=== PATIENT | male | born 1930 | race Caucasian/White ===

== ENCOUNTER 2020-12-26 14:17 | Inpatient (IN) | payer MEDICARE, BC ==
[~2020-12-26] VITALS: Ht 182.9 cm; Wt 85.3 kg
[~2020-12-26 14:17] MED LIST: ASPI-482 PO; ATOR10TA PO; CLOP75TA57 PO; GLIM1TAB7 PO; MECL12.582 PO; METF500T16 PO; METO25TA2 PO; NITR0.4T24 SL; SIMV10TA PO
[2020-12-26 15:07] LABS: BASO # 0.1 x10^3/uL (0.0-0.2); BASO % 1 % (0-3); EOS % 1 % (0-3); HEMATOCRIT 37.4 % (39.0-53.0); HEMOGLOBIN 12.8 g/dL (13.0-17.5); LYMPH # 0.8 x10^3/uL (1.0-4.8); LYMPH % 14 % (24-48); MEAN CORPUSCULAR HEMOGLOBIN 30 pg (25-35); MEAN CORPUSCULAR HGB CONC 34 g/dL (31-37); MEAN CORPUSCULAR VOLUME 88 fL (79-100); MONO # 0.4 x10^3/uL (0.0-1.1); MONO % 7 % (0-9); NEUT # 4.7 x10^3/uL (1.8-7.7); NEUT % 78 % (31-73); PLATELET COUNT 195 x10^3/uL (140-400); RED BLOOD COUNT 4.24 x10^6/uL (4.30-5.70); RED CELL DISTRIBUTION WIDTH 14.6 % (11.5-14.5); WHITE BLOOD COUNT 6.1 x10^3/uL (4.0-11.0)
--- NOTE | 2020-12-26 15:14 | PHYS DOC ---
General Adult EDM: Chief Complaint: MULTIPLE COMPLAINTS HPI: HPI: Patient is a 89 year old male who presents with 2 weeks of cough, shortness of breath especially with exertion, coughing up yellow mucus, generalized weakness. Patient denies any pain at this time. Patient denies fever, nausea, vomiting, diarrhea, abdominal pain, chest pain, dizziness, syncope, headache, vision change, focal weakness, back pain. Patient has a history of irregular heartbeat, [place], stents, former smoker, diabetes, hypertension, high cholesterol. (GEETA NOLASCO APRN) Review of Systems: Review of Systems: Constitutional: Denies fever or chills. [] Eyes: Denies change in visual acuity. [] HENT: Denies nasal congestion or +sore throat. [] Respiratory: + cough or +shortness of breath. [] Cardiovascular: Denies chest pain or edema. [] GI: Denies abdominal pain, nausea, vomiting, bloody stools or diarrhea. [] : Denies dysuria. [] Musculoskeletal: Denies back pain or joint pain. + Generalized weakness [] Integument: Denies rash. [] Neurologic: Denies headache, focal weakness or sensory changes. [] Endocrine: Denies polyuria or polydipsia. [] Lymphatic: Denies swollen glands. [] Psychiatric: Denies depression or anxiety. [] (GEETA NOLASCO UNINDENTURED APPRENTICE) Heart Score: C/O Chest Pain: No Risk Factors: Risk Factors: DM, Current or recent (<one month) smoker, HTN, HLP, family history of CAD, obesity. Risk Scores: Score 0 - 3: 2.5% MACE over next 6 weeks - Discharge Home Score 4 - 6: 20.3% MACE over next 6 weeks - Admit for Clinical Observation Score 7 - 10: 72.7% MACE over next 6 weeks - Early Invasive Strategies (GEETA NOLASCO APRN) Allergies: Allergies: Allergies Coded Allergies Type Severity Reaction Last Updated Verified Tetracyclines Allergy Intermediate 11/30/14 Yes (GEETA NOLASCO APRN) Physical Exam: PE: Constitutional: Well developed, well nourished, no acute distress, non-toxic appearance. [] HENT: Normocephalic, atraumatic, bilateral external ears normal, oropharynx moist, no oral exudates, nose normal. [] Eyes: PERRLA, EOMI, conjunctiva normal, no discharge. [] Neck: Normal range of motion, no tenderness, supple, no stridor. [] Cardiovascular:Heart rate tachy regular rhythm, no murmur [] Lungs & Thorax: Bilateral breath sounds diminished to auscultation [] Abdomen: Bowel sounds normal, soft, no tenderness, no masses, no pulsatile masses. [] Skin: Warm, dry, no erythema, no rash. [] Back: No tenderness, no CVA tenderness. [] Extremities: No tenderness, no cyanosis, no clubbing, ROM intact, no edema. [] Neurologic: Alert and oriented X 3, normal motor function, normal sensory function, no focal deficits noted. [] Psychologic: Affect normal, judgement normal, mood normal. [] (GEETA NOLASCO APRN) Current Patient Data: Labs: Laboratory Tests Test 12/26/20 14:58 White Blood Count 6.1 x10^3/uL (4.0-11.0) Red Blood Count 4.24 x10^6/uL (4.30-5.70) L Hemoglobin 12.8 g/dL (13.0-17.5) L Hematocrit 37.4 % (39.0-53.0) L Mean Corpuscular Volume 88 fL (79-100) Mean Corpuscular Hemoglobin 30 pg (25-35) Mean Corpuscular Hemoglobin Concent 34 g/dL (31-37) Red Cell Distribution Width 14.6 % (11.5-14.5) H Platelet Count 195 x10^3/uL (140-400) Neutrophils (%) (Auto) 78 % (31-73) H Lymphocytes (%) (Auto) 14 % (24-48) L Monocytes (%) (Auto) 7 % (0-9) Eosinophils (%) (Auto) 1 % (0-3) Basophils (%) (Auto) 1 % (0-3) Neutrophils # (Auto) 4.7 x10^3/uL (1.8-7.7) Lymphocytes # (Auto) 0.8 x10^3/uL (1.0-4.8) L Monocytes # (Auto) 0.4 x10^3/uL (0.0-1.1) Eosinophils # (Auto) 0.0 x10^3/uL (0.0-0.7) Basophils # (Auto) 0.1 x10^3/uL (0.0-0.2) Laboratory Tests 12/26/20 14:58 (GEETA NOLASCO APRN) EKG: EK and read by Dr. Trammell as sinus tachycardia no STEMI (GEETA NOLASCO APRN) Radiology/Procedures: Radiology/Procedures: [] Impression: [facility] [address] [place] [address] IMAGING REPORT Signed PATIENT: CURTIS ALCAZAR ACCOUNT: [id number] : 1930 LOCATION: ER AGE: 89 SEX: M EXAM STATUS: REG ER ORD. PHYSICIAN: GEETA NOLASCO APRN REASON: CHEST PAIN PROCEDURE: PORTABLE CHEST 1V XR CHEST 1V 12/26/2020 3:00 PM INDICATION: Chest pain COMPARISON: None available TECHNIQUE: Portable frontal view of the chest is provided. FINDINGS: The cardiomediastinal silhouette is within normal limits. Lungs are clear. There are no significant pleural effusions. There is no pulmonary vascular congestion. No pneumothorax. No suspicious osseous abnormality. IMPRESSION: There is no acute cardiopulmonary process. Electronically signed by: Bassam Morales MD (12/26/2020 3:13 PM) [id number] DICTATED and SIGNED BY: BASSAM MORALES MD DATE: 12/26/20 [id number] (GEETA NOLASCO APRN) Course & Med Decision Making: Course & Med Decision Making Pertinent Labs and Imaging studies reviewed. (See chart for details) See HPI. Alert and oriented x4. Ambulatory with a steady gait. Speaks in full clear sentences. Skin pink warm and dry. Lungs are diminished. No respiratory distress. Blood work shows acute kidney injury. Patient states he has no history of this. Chest x-ray shows no acute findings. He states that the breathing treatment did help. Patient admitted to hospitalist. Walking saturation is 94%. [] (GEETA NOLASCO APRN) Dragon Disclaimer: Dragon Disclaimer: This electronic medical record was generated, in whole or in part, using a voice recognition dictation system. (GEETA NOLASCO APRN) Departure Departure Impression: Primary Impression: Acute kidney injury Additional Impression: Shortness of breath Disposition: ADMITTED INPATIENT Admitting Physician: LEROY (GEETA NOLASCO APRN) Condition: STABLE Referrals: Tyree AGUIAR MD (PCP) Attending Signature I have participated in the care of this patient and I have reviewed and agree with all pertinent clinical information above including history, exam, and recommendations. (ZOFIA TRAMMELL DO) GEETA NOLASCO APRN Dec 26, 2020 15:14 ZOFIA TRAMMELL DO Dec 26, 2020 17:19
[2020-12-26] MEDS ORDERED: ALBUTEROL SULFATE 2.5 MG/3 ML NEBU. NEB ONE (15:15)
[2020-12-26] MEDS ORDERED: methylPREDNISolone SOD SUCC PF 125 MG/2 ML VIAL. IV ONE (15:15)
[2020-12-26 15:21] LABS: CALCIUM 9.5 mg/dL (8.5-10.1); CREATININE 1.8 mg/dL (0.7-1.3); GFR 35.8; POTASSIUM 3.7 mmol/L (3.5-5.1)
[2020-12-26 15:27] LABS: ALBUMIN/GLOBULIN RATIO 1.2 (1.0-1.7); TOTAL BILIRUBIN 1.6 mg/dL (0.2-1.0); TOTAL PROTEIN 7.4 g/dL (6.4-8.2)
[2020-12-26 15:51] LABS: BASE EXCESS COOX -2 mmol/L (-3-3); HCO3 COOX 23 mmol/L (21-28); METHEMOGLOBIN 0.4 % (0.0-1.9); OXYHEMOGLOBIN 92.7 %; PCO2 COOX 37 mmHg (35-46); PO2 COOX 67 mmHg (65-108); SAT O2 COOX 93 % (92-99)
[2020-12-26] MEDS ORDERED: IV NORMAL SALINE 1000ML BAG 1,000 ML IV ONE ×2 (16:00→20:30)
--- NOTE | 2020-12-26 17:26 | EKG ---
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
[2020-12-26 17:35] LABS: BILIRUBIN,URINE SMALL (NEG); CLARITY,URINE CLEAR; COLOR,URINE AMBER; NITRITE,URINE NEGATIVE (NEG); PH,URINE 5.5 (<5.0-8.0); PROTEIN,URINE 100 mg/dL (NEG-TRACE)
[2020-12-26 17:45] LABS: BACTERIA,URINE 0 /HPF (0-FEW); HYALINE CASTS, URINE FEW /HPF; RBC,URINE 0 /HPF (0-2); WBC,URINE OCC /HPF (0-4)
[2020-12-26 19:00] VITALS: BP 153/64
--- NOTE | 2020-12-26 19:12 | PDOC1 ---
History and Physical Date of Service: DOS: DATE: 12/26/20 TIME: 18:54 Chief Complaint: Chief Complain: Cough and shortness of breath History of Present Illness: HPI: Patient is an 89-year-old male with past medical history of CAD with multiple stents, diabetes mellitus, dyslipidemia who comes in with complaints of shortness of breath and productive cough with yellow mucus and generalized weakness in the past 2 weeks. Since Thursday is when he was worsening and was severely fatigued. Patient did not drink any fluids on the day of his admission. Patient has also been coughing so much that he has been having chest pains as well. Denies any associated nausea vomiting, fever, abdominal pain, diarrhea, dizziness, syncope, headache or bloody stools. Patient has a history of irregular heartbeat, [place], stents, former smoker, diabetes, hypertension, high cholesterol. Past Medical/Surgical History: PMH/PSH: CAD x7 stents, diabetes mellitus type 2 diagnosed 7 years ago, dyslipidemia Allergies: Allergies: Coded Allergies: Tetracyclines (Verified Allergy, Intermediate, 11/30/14) Family History: Family History: Reviewed with no relevant findings Social History: Social History: Former smoker quit 45 years ago. Currently denies any alcohol or drug abuse Current Medications: Current Medications Current Medications Methylprednisolone Sodium Succinate (SOLU-Medrol 125MG VIAL) 125 mg 1X ONCE IV Last administered on 12/26/20at 15:28; Start 12/26/20 at 15:15; Stop 12/26/20 at 15:16; Status DC Albuterol Sulfate (Ventolin Neb Soln) 2.5 mg 1X ONCE NEB Last administered on 12/26/20at 15:44; Start 12/26/20 at 15:15; Stop 12/26/20 at 15:16; Status DC Sodium Chloride 1,000 ml @ 1,000 mls/hr 1X ONCE IV Last administered on 12/26/20at 16:24; Start 12/26/20 at 16:00; Stop 12/26/20 at 16:59; Status DC Active Scripts Active Reported Meclizine Hcl 12.5 Mg Tablet 1 Tab PO TID Aspir 81 (Aspirin) 81 Mg Tablet.dr 1 Tab PO DAILY Glimepiride 1 Mg Tablet 1 Tab PO DAILY Metformin Hcl 500 Mg Tablet 1 Tab PO BID Nitrostat (Nitroglycerin) 0.4 Mg Tab.subl 1 Tab SL UD Zocor (Simvastatin) 10 Mg Tablet 1 Tab PO QHS Lipitor (Atorvastatin Calcium) 10 Mg Tablet 1 Tab PO QHS Plavix (Clopidogrel Bisulfate) 75 Mg Tablet 1 Tab PO DAILY Toprol Xl (Metoprolol Succinate) 25 Mg Tab.er.24h 1 Tab PO DAILY ROS: Review of Systems Review of System REVIEW OF SYSTEMS: GENERAL: Denies weakness SKIN: No bruising, hair changes or rashes. EYES: No blurred, double or loss of vision. NOSE AND THROAT: No history of nosebleeds, hoarseness or sore throat. HEART: No history of palpitations, chest pain or shortness of breath on exertion. LUNGS: Denies cough, hemoptysis, wheezing or shortness of breath. GASTROINTESTINAL: Denies changes in appetite, nausea, vomiting, diarrhea or constipation. GENITOURINARY: No history of frequency, urgency, hesitancy or nocturia. NEUROLOGIC: Denies history of numbness, tingling, or tremor. PSYCHIATRIC: No history of panic, anxiety or depression. ENDOCRINE: No history of heat or cold intolerance, polyuria or polydipsia. EXTREMITIES: Denies joint pain, pain on walking or stiffness. Physical Exam: Vital Signs: Vital Signs Date Time Temp Pulse Resp B/P (MAP) Pulse Ox O2 Delivery O2 Flow Rate FiO2 12/26/20 18:00 82 129/78 (95) 95 Room Air 12/26/20 14:37 97.8 24 97.8 Physcial Exam: GEN: No apparent distress. Alert and oriented HEENT: Normal cephalic, atraumatic, external auditory canals are patent EYES: Extraocular muscles are intact, pupil are equally round and reactive to light and accommodation MUSCULOSKELETAL: Well developed , well nourished, good range of motion ENDOCRINE: No thyromegaly was palpated LYMPHATICS: No cervical chain or axillary nodes were noted HEMATOPOIETIC: No bruising NECK: Supple, no JVD, no thyromegaly was noted LUNGS: Clear to auscultation in all lung card without rhonchi or wheezing HEART: RRR, S!, S2 present. Peripheral pulses intact, no obvious murmurs noted ABDOMEN: Soft, nontender. Positive bowel sounds, no organomegaly, normal bowel sounds EXTREMITIES: Without clubbing, cyanosis, or edema. Pedal pulses intact. Negative Homans sign NEUROLOGIC: Normal speech and tone. A&O x 3, moves all extremities, no obvious focal deficits PSYCHIATRIC: Normal affect, normal mood. Stable SKIN: No ulcerations or rashes, good skin turgor, no jaundice VASCULAR: Good capillary refill, neurovascular bundle appears to be intact Labs: Labs: Laboratory Tests Test 12/26/20 14:58 12/26/20 15:35 12/26/20 17:20 White Blood Count 6.1 x10^3/uL (4.0-11.0) Red Blood Count 4.24 x10^6/uL (4.30-5.70) Hemoglobin 12.8 g/dL (13.0-17.5) Hematocrit 37.4 % (39.0-53.0) Mean Corpuscular Volume 88 fL (79-100) Mean Corpuscular Hemoglobin 30 pg (25-35) Mean Corpuscular Hemoglobin Concent 34 g/dL (31-37) Red Cell Distribution Width 14.6 % (11.5-14.5) Platelet Count 195 x10^3/uL (140-400) Neutrophils (%) (Auto) 78 % (31-73) Lymphocytes (%) (Auto) 14 % (24-48) Monocytes (%) (Auto) 7 % (0-9) Eosinophils (%) (Auto) 1 % (0-3) Basophils (%) (Auto) 1 % (0-3) Neutrophils # (Auto) 4.7 x10^3/uL (1.8-7.7) Lymphocytes # (Auto) 0.8 x10^3/uL (1.0-4.8) Monocytes # (Auto) 0.4 x10^3/uL (0.0-1.1) Eosinophils # (Auto) 0.0 x10^3/uL (0.0-0.7) Basophils # (Auto) 0.1 x10^3/uL (0.0-0.2) Sodium Level 140 mmol/L (136-145) Potassium Level 3.7 mmol/L (3.5-5.1) Chloride Level 104 mmol/L (98-107) Carbon Dioxide Level 23 mmol/L (21-32) Anion Gap 13 (6-14) Blood Urea Nitrogen 28 mg/dL (8-26) Creatinine 1.8 mg/dL (0.7-1.3) Estimated GFR (Cockcroft-Gault) 35.8 BUN/Creatinine Ratio 16 (6-20) Glucose Level 200 mg/dL (70-99) Lactic Acid Level 2.7 mmol/L (0.4-2.0) Calcium Level 9.5 mg/dL (8.5-10.1) Total Bilirubin 1.6 mg/dL (0.2-1.0) Aspartate Amino Transf (AST/SGOT) 21 U/L (15-37) Alanine Aminotransferase (ALT/SGPT) 27 U/L (16-63) Alkaline Phosphatase 98 U/L (46-116) Troponin I Quantitative < 0.017 ng/mL (0.000-0.055) XR-Agj-U-Type Natriuretic Peptide 260 pg/mL (0-449) Total Protein 7.4 g/dL (6.4-8.2) Albumin 4.0 g/dL (3.4-5.0) Albumin/Globulin Ratio 1.2 (1.0-1.7) Lipase 153 U/L (73-393) O2 Saturation 93 % (92-99) Arterial Blood pH 7.41 (7.35-7.45) Arterial Blood pCO2 at Patient Temp 37 mmHg (35-46) Arterial Blood pO2 at Patient Temp 67 mmHg (65-108) Arterial Blood HCO3 23 mmol/L (21-28) Arterial Blood Base Excess -2 mmol/L (-3-3) Oxyhemoglobin 92.7 % Methemoglobin 0.4 % (0.0-1.9) Carbon Monoxide, Quantitative 0.3 % (0.0-1.9) FiO2 21 Urine Collection Type Unknown Urine Color Kelly Urine Clarity Clear Urine pH 5.5 (<5.0-8.0) Urine Specific [place] >=1.030 (1.000-1.030) Urine Protein 100 mg/dL (NEG-TRACE) Urine Glucose (UA) 100 mg/dL (NEG) Urine Ketones (Stick) 40 mg/dL (NEG) Urine Blood Negative (NEG) Urine Nitrite Negative (NEG) Urine Bilirubin Small (NEG) Urine Urobilinogen Dipstick 1.0 mg/dL (0.2 mg/dL) Urine Leukocyte Esterase Negative (NEG) Urine RBC 0 /HPF (0-2) Urine WBC Occ /HPF (0-4) Urine Squamous Epithelial Cells Few /LPF Urine Bacteria 0 /HPF (0-FEW) Urine Hyaline Casts Few /HPF Urine Mucus Marked /LPF Laboratory Tests Test 12/26/20 14:58 12/26/20 15:35 12/26/20 17:20 White Blood Count 6.1 x10^3/uL (4.0-11.0) Red Blood Count 4.24 x10^6/uL (4.30-5.70) Hemoglobin 12.8 g/dL (13.0-17.5) Hematocrit 37.4 % (39.0-53.0) Mean Corpuscular Volume 88 fL (79-100) Mean Corpuscular Hemoglobin 30 pg (25-35) Mean Corpuscular Hemoglobin Concent 34 g/dL (31-37) Red Cell Distribution Width 14.6 % (11.5-14.5) Platelet Count 195 x10^3/uL (140-400) Neutrophils (%) (Auto) 78 % (31-73) Lymphocytes (%) (Auto) 14 % (24-48) Monocytes (%) (Auto) 7 % (0-9) Eosinophils (%) (Auto) 1 % (0-3) Basophils (%) (Auto) 1 % (0-3) Neutrophils # (Auto) 4.7 x10^3/uL (1.8-7.7) Lymphocytes # (Auto) 0.8 x10^3/uL (1.0-4.8) Monocytes # (Auto) 0.4 x10^3/uL (0.0-1.1) Eosinophils # (Auto) 0.0 x10^3/uL (0.0-0.7) Basophils # (Auto) 0.1 x10^3/uL (0.0-0.2) Sodium Level 140 mmol/L (136-145) Potassium Level 3.7 mmol/L (3.5-5.1) Chloride Level 104 mmol/L (98-107) Carbon Dioxide Level 23 mmol/L (21-32) Anion Gap 13 (6-14) Blood Urea Nitrogen 28 mg/dL (8-26) Creatinine 1.8 mg/dL (0.7-1.3) Estimated GFR (Cockcroft-Gault) 35.8 BUN/Creatinine Ratio 16 (6-20) Glucose Level 200 mg/dL (70-99) Lactic Acid Level 2.7 mmol/L (0.4-2.0) Calcium Level 9.5 mg/dL (8.5-10.1) Total Bilirubin 1.6 mg/dL (0.2-1.0) Aspartate Amino Transf (AST/SGOT) 21 U/L (15-37) Alanine Aminotransferase (ALT/SGPT) 27 U/L (16-63) Alkaline Phosphatase 98 U/L (46-116) Troponin I Quantitative < 0.017 ng/mL (0.000-0.055) QH-Tyl-M-Type Natriuretic Peptide 260 pg/mL (0-449) Total Protein 7.4 g/dL (6.4-8.2) Albumin 4.0 g/dL (3.4-5.0) Albumin/Globulin Ratio 1.2 (1.0-1.7) Lipase 153 U/L (73-393) O2 Saturation 93 % (92-99) Arterial Blood pH 7.41 (7.35-7.45) Arterial Blood pCO2 at Patient Temp 37 mmHg (35-46) Arterial Blood pO2 at Patient Temp 67 mmHg (65-108) Arterial Blood HCO3 23 mmol/L (21-28) Arterial Blood Base Excess -2 mmol/L (-3-3) Oxyhemoglobin 92.7 % Methemoglobin 0.4 % (0.0-1.9) Carbon Monoxide, Quantitative 0.3 % (0.0-1.9) FiO2 21 Urine Collection Type Unknown Urine Color Kelly Urine Clarity Clear Urine pH 5.5 (<5.0-8.0) Urine Specific [place] >=1.030 (1.000-1.030) Urine Protein 100 mg/dL (NEG-TRACE) Urine Glucose (UA) 100 mg/dL (NEG) Urine Ketones (Stick) 40 mg/dL (NEG) Urine Blood Negative (NEG) Urine Nitrite Negative (NEG) Urine Bilirubin Small (NEG) Urine Urobilinogen Dipstick 1.0 mg/dL (0.2 mg/dL) Urine Leukocyte Esterase Negative (NEG) Urine RBC 0 /HPF (0-2) Urine WBC Occ /HPF (0-4) Urine Squamous Epithelial Cells Few /LPF Urine Bacteria 0 /HPF (0-FEW) Urine Hyaline Casts Few /HPF Urine Mucus Marked /LPF Images: Images PROCEDURE: PORTABLE CHEST 1V IMPRESSION: There is no acute cardiopulmonary process. Assessment/Plan Assessment/Plan Acute respiratory distress Atypical pneumonia, possible viral etiology ESTEFANY due to vasomotor nephropathy Lactic acidemia History of CAD with multiple stents History of hypertension History of dyslipidemia History of diabetes mellitus type 2 Admit to medicine for further management Nephrology consult for ESTEFANY Continue IV fluids Trend creatinine R ISS and Accu-Cheks Consider cardiology consult if patient has reoccurring chest pain Supportive care for cough Ambulation SCD for DVT prophylaxis Protonix GI prophylaxis ADA diet Full code Discussed with RN and SW Disposition inpatient management as above Surrogate decision maker is Amaury Denton Justifications for Admission Other Justification VIGNESH LAST MD Dec 26, 2020 19:12
[2020-12-26] MEDS ORDERED: ACETAMINOPHEN 325 MG TABLET. PO PRN (19:15)
[2020-12-26] MEDS ORDERED: MORPHINE SULFATE 2 MG/ML VIAL. IVP PRN (19:15)
[2020-12-26] MEDS ORDERED: DOCUSATE SODIUM 100 MG CAPSULE. PO PRN (19:15)
[2020-12-26] MEDS ORDERED: ONDANSETRON PF 4 MG/2 ML VIAL. IVP PRN (19:15)
[2020-12-26] MEDS ORDERED: DEXTROSE 50% 25 GM / 50ML DISP.SYRIN. IV PRN ×2 (19:15)
[2020-12-26] MEDS ORDERED: MORPHINE SULFATE 2 MG/ML VIAL. IV PRN (19:15)
[2020-12-26] MEDS: ATORVASTATIN CALCIUM 10 MG TABLET. PO SCH (21:11)
[2020-12-26] MEDS: MECLIZINE HCL 12.5 MG TABLET. PO SCH (21:12)
[2020-12-26 23:16] VITALS: BP 125/63
[2020-12-26] MEDS: IV NORMAL SALINE 1000ML BAG 1,000 ML IV SCH (23:31)
[2020-12-27 03:14] VITALS: BP 125/65
[2020-12-27] MEDS: IV NORMAL SALINE 1000ML BAG 1,000 ML IV SCH ×2 (05:15→16:02)
[2020-12-27 06:28] LABS: BASO % 0 % (0-3); EOS % 0 % (0-3); HEMATOCRIT 32.1 % (39.0-53.0); HEMOGLOBIN 11.1 g/dL (13.0-17.5); LYMPH # 0.5 x10^3/uL (1.0-4.8); LYMPH % 15 % (24-48); MEAN CORPUSCULAR HEMOGLOBIN 30 pg (25-35); MEAN CORPUSCULAR HGB CONC 34 g/dL (31-37); MEAN CORPUSCULAR VOLUME 88 fL (79-100); MONO # 0.1 x10^3/uL (0.0-1.1); MONO % 4 % (0-9); NEUT # 2.7 x10^3/uL (1.8-7.7); NEUT % 81 % (31-73); PLATELET COUNT 167 x10^3/uL (140-400); RED BLOOD COUNT 3.64 x10^6/uL (4.30-5.70); RED CELL DISTRIBUTION WIDTH 14.2 % (11.5-14.5); WHITE BLOOD COUNT 3.4 x10^3/uL (4.0-11.0)
[2020-12-27 06:37] LABS: CALCIUM 8.5 mg/dL (8.5-10.1); CREATININE 1.3 mg/dL (0.7-1.3); GFR 52.1; MAGNESIUM 2.2 mg/dL (1.8-2.4); PHOSPHORUS 2.7 mg/dL (2.6-4.7); POTASSIUM 4.6 mmol/L (3.5-5.1)
[2020-12-27 07:30] VITALS: BP 141/76
[2020-12-27] MEDS: MECLIZINE HCL 12.5 MG TABLET. PO SCH ×3 (07:49→20:47)
[2020-12-27] MEDS: CLOPIDOGREL BISULFATE 75 MG TABLET PO SCH (07:49)
[2020-12-27] MEDS: METOPROLOL SUCC 24HR ER 25 MG TAB.ER.24H. PO SCH (07:50)
[2020-12-27] MEDS: ASPIRIN ENTERIC COATED 81 MG TABLET.DR. PO SCH (07:50)
[2020-12-27] MEDS: INSULIN LISPRO 300 UNITS/3 ML VIAL. SQ SCH ×3 (07:55→16:59)
--- NOTE | 2020-12-27 09:08 | PDOC2 ---
CONSULT Date of Consult Date of Consult DATE: 12/27/20 TIME: 09:03 Reason for Consult Reason for Consult: ESTEFANY Source Source: Chart review, Patient History of Present Illness Reason for Visit: Patient is an 89-year-old CM with past medical history of CAD with multiple stents, diabetes mellitus, who comes in with complaints of shortness of breath and productive cough with yellow mucus and generalized weakness in the past 2 weeks. Since Thursday is when he was worsening and was severely fatigued. Patient did not drink any fluids on the day of his admission but reports he stays adequately hydrated - drinks water and other fluid s. He denies being aware of Dx of CKD . He states he has bee feeling feeling of incomplete emptying of bladder for past many months , no previous dx of BPH. Denies UTI's, currently no urinary symptoms . States doesnt have Kidney stones " I had a stone in the penis approx 30 yrs ago, which i passed" Denies NSAID use , No N/V/D. nO f/c hE REPORTS coughing so much that he has been having chest pains as well. No dizziness, syncope, headache or bloody stools. Past Medical History Past Medical History CAD x7 stents, diabetes mellitus type 2 diagnosed 7 years ago, dyslipidemia Family History Family History Reviewed with no relevant findings Social History Social History Former smoker quit 45 years ago. Currently denies any alcohol or drug abuse Current Problem List Problem List Problems Medical Problems: (1) Acute kidney injury Status: Acute (2) Shortness of breath Status: Acute Current Medications Current Medications Current Medications Methylprednisolone Sodium Succinate (SOLU-Medrol 125MG VIAL) 125 mg 1X ONCE IV Last administered on 12/26/20at 15:28; Start 12/26/20 at 15:15; Stop 12/26/20 at 15:16; Status DC Albuterol Sulfate (Ventolin Neb Soln) 2.5 mg 1X ONCE NEB Last administered on 12/26/20at 15:44; Start 12/26/20 at 15:15; Stop 12/26/20 at 15:16; Status DC Sodium Chloride 1,000 ml @ 1,000 mls/hr 1X ONCE IV Last administered on 12/26/20at 16:24; Start 12/26/20 at 16:00; Stop 12/26/20 at 16:59; Status DC Insulin Human Lispro (HumaLOG) 0-7 UNITS TIDWMEALS SQ Last administered on 12/27/20at 07:55; Start 12/27/20 at 08:00 Dextrose (Dextrose 50%-Water Syringe) 12.5 gm PRN Q15MIN PRN IV SEE COMMENTS; Start 12/26/20 at 19:15 Sennosides (Senna) 17.2 mg PRN BID PRN PO CONSTIPATION; Start 12/26/20 at 19:15 Docusate Sodium (Colace) 100 mg PRN DAILY PRN PO HARD STOOLS; Start 12/26/20 at 19:15 Ondansetron HCl (Zofran) 4 mg PRN Q6HRS PRN IVP NAUSEA/VOMITING; Start 12/26/20 at 19:15 Dextrose (Dextrose 50%-Water Syringe) 12.5 gm PRN Q15MIN PRN IV SEE COMMENTS; Start 12/26/20 at 19:15 Sodium Chloride 1,000 ml @ 100 mls/hr Q10H IV Last administered on 12/27/20at 05:15; Start 12/26/20 at 19:15 Acetaminophen (Tylenol) 650 mg PRN Q4HRS PRN PO TEMP OVER 100.4F OR MILD PAIN; Start 12/26/20 at 19:15 Morphine Sulfate (Morphine Sulfate) 1 mg PRN Q1HR PRN IV PAIN; Start 12/26/20 at 19:15 Morphine Sulfate (Morphine Sulfate) 2 mg PRN Q2HR PRN IVP SEVERE PAIN 7-10; Start 12/26/20 at 19:15; Stop 12/27/20 at 19:14 Aspirin (Ecotrin) 81 mg DAILY PO Last administered on 12/27/20at 07:50; Start 12/27/20 at 09:00 Atorvastatin Calcium (Lipitor) 10 mg QHS PO Last administered on 12/26/20at 21:11; Start 12/26/20 at 21:00 Clopidogrel Bisulfate (Plavix) 75 mg DAILY PO Last administered on 12/27/20at 07:49; Start 12/27/20 at 09:00 Meclizine HCl (Antivert) 12.5 mg TID PO Last administered on 12/27/20at 07:49; Start 12/26/20 at 21:00 Metoprolol Succinate (Toprol Xl) 25 mg DAILY PO Last administered on 12/27/20at 07:50; Start 12/27/20 at 09:00 Sodium Chloride 1,000 ml @ 125 mls/hr 1X ONCE IV Last administered on 12/26/20at 21:11; Start 12/26/20 at 20:30; Stop 12/27/20 at 04:29; Status DC Active Scripts Active Reported Meclizine Hcl 12.5 Mg Tablet 1 Tab PO TID Aspir 81 (Aspirin) 81 Mg Tablet.dr 1 Tab PO DAILY Glimepiride 1 Mg Tablet 1 Tab PO DAILY Metformin Hcl 500 Mg Tablet 1 Tab PO BID Nitrostat (Nitroglycerin) 0.4 Mg Tab.subl 1 Tab SL UD Zocor (Simvastatin) 10 Mg Tablet 1 Tab PO QHS Lipitor (Atorvastatin Calcium) 10 Mg Tablet 1 Tab PO QHS Plavix (Clopidogrel Bisulfate) 75 Mg Tablet 1 Tab PO DAILY Toprol Xl (Metoprolol Succinate) 25 Mg Tab.er.24h 1 Tab PO DAILY Allergies Allergies: Coded Allergies: Tetracyclines (Verified Allergy, Intermediate, 11/30/14) ROS Review of System As per HPI, rest of the ROS is negative Physical Exam Physical Exam GEN: No apparent distress. HEENT: Normal cephalic, atraumatic, OM moist NECK: Supple, no JVD, LUNGS: Clear to auscultation, Non labored HEART: RRR, S!, S2 present ABDOMEN: Soft, nontender. Positive bowel sounds, no organomegaly EXTREMITIES: Without clubbing, cyanosis, or edema. NEUROLOGIC: Grossly no obvious focal deficits PSYCHIATRIC: Normal affect, normal mood. Stable SKIN: No ulcerations or rashes, good skin turgor, no jaundice No CVA or SP tenderness, No Rodriguez Vital Signs Vital Signs Date Time Temp Pulse Resp B/P (MAP) Pulse Ox O2 Delivery O2 Flow Rate FiO2 12/27/20 07:50 84 125/65 12/27/20 07:30 97.9 18 98 Room Air 97.9 Assessment & Plan ESTEFANY - Vasomotor , Improving with IVF, uop not recorded,, Supportive care, maintain hydration, avoid nephrotoxins, I/O Acute respiratory distress- per primary Atypical pneumonia, possible viral etiology Mildly Low WBC and Hgb -monitor, defer to primary Hx of CAD with multiple stents Hypertension- antihypertensives Diabetes mellitus type 2 Labs Labs Laboratory Tests Test 12/26/20 14:58 12/26/20 15:35 12/26/20 17:20 12/26/20 18:58 White Blood Count 6.1 x10^3/uL (4.0-11.0) Red Blood Count 4.24 x10^6/uL (4.30-5.70) Hemoglobin 12.8 g/dL (13.0-17.5) Hematocrit 37.4 % (39.0-53.0) Mean Corpuscular Volume 88 fL (79-100) Mean Corpuscular Hemoglobin 30 pg (25-35) Mean Corpuscular Hemoglobin Concent 34 g/dL (31-37) Red Cell Distribution Width 14.6 % (11.5-14.5) Platelet Count 195 x10^3/uL (140-400) Neutrophils (%) (Auto) 78 % (31-73) Lymphocytes (%) (Auto) 14 % (24-48) Monocytes (%) (Auto) 7 % (0-9) Eosinophils (%) (Auto) 1 % (0-3) Basophils (%) (Auto) 1 % (0-3) Neutrophils # (Auto) 4.7 x10^3/uL (1.8-7.7) Lymphocytes # (Auto) 0.8 x10^3/uL (1.0-4.8) Monocytes # (Auto) 0.4 x10^3/uL (0.0-1.1) Eosinophils # (Auto) 0.0 x10^3/uL (0.0-0.7) Basophils # (Auto) 0.1 x10^3/uL (0.0-0.2) Sodium Level 140 mmol/L (136-145) Potassium Level 3.7 mmol/L (3.5-5.1) Chloride Level 104 mmol/L (98-107) Carbon Dioxide Level 23 mmol/L (21-32) Anion Gap 13 (6-14) Blood Urea Nitrogen 28 mg/dL (8-26) Creatinine 1.8 mg/dL (0.7-1.3) Estimated GFR (Cockcroft-Gault) 35.8 BUN/Creatinine Ratio 16 (6-20) Glucose Level 200 mg/dL (70-99) Lactic Acid Level 2.7 mmol/L (0.4-2.0) 4.1 mmol/L (0.4-2.0) Calcium Level 9.5 mg/dL (8.5-10.1) Total Bilirubin 1.6 mg/dL (0.2-1.0) Aspartate Amino Transf (AST/SGOT) 21 U/L (15-37) Alanine Aminotransferase (ALT/SGPT) 27 U/L (16-63) Alkaline Phosphatase 98 U/L (46-116) Troponin I Quantitative < 0.017 ng/mL (0.000-0.055) < 0.017 ng/mL (0.000-0.055) YF-Esm-N-Type Natriuretic Peptide 260 pg/mL (0-449) Total Protein 7.4 g/dL (6.4-8.2) Albumin 4.0 g/dL (3.4-5.0) Albumin/Globulin Ratio 1.2 (1.0-1.7) Lipase 153 U/L (73-393) O2 Saturation 93 % (92-99) Arterial Blood pH 7.41 (7.35-7.45) Arterial Blood pCO2 at Patient Temp 37 mmHg (35-46) Arterial Blood pO2 at Patient Temp 67 mmHg (65-108) Arterial Blood HCO3 23 mmol/L (21-28) Arterial Blood Base Excess -2 mmol/L (-3-3) Oxyhemoglobin 92.7 % Methemoglobin 0.4 % (0.0-1.9) Carbon Monoxide, Quantitative 0.3 % (0.0-1.9) FiO2 21 Urine Collection Type Unknown Urine Color Kelly Urine Clarity Clear Urine pH 5.5 (<5.0-8.0) Urine Specific [place] >=1.030 (1.000-1.030) Urine Protein 100 mg/dL (NEG-TRACE) Urine Glucose (UA) 100 mg/dL (NEG) Urine Ketones (Stick) 40 mg/dL (NEG) Urine Blood Negative (NEG) Urine Nitrite Negative (NEG) Urine Bilirubin Small (NEG) Urine Urobilinogen Dipstick 1.0 mg/dL (0.2 mg/dL) Urine Leukocyte Esterase Negative (NEG) Urine RBC 0 /HPF (0-2) Urine WBC Occ /HPF (0-4) Urine Squamous Epithelial Cells Few /LPF Urine Bacteria 0 /HPF (0-FEW) Urine Hyaline Casts Few /HPF Urine Mucus Marked /LPF Test 6/2/21 19:37 12/26/20 20:05 12/27/20 01:00 12/27/20 05:40 Glucose (Fingerstick) 310 mg/dL (70-99) Troponin I Quantitative < 0.017 ng/mL (0.000-0.055) Lactic Acid Level 1.4 mmol/L (0.4-2.0) White Blood Count 3.4 x10^3/uL (4.0-11.0) Red Blood Count 3.64 x10^6/uL (4.30-5.70) Hemoglobin 11.1 g/dL (13.0-17.5) Hematocrit 32.1 % (39.0-53.0) Mean Corpuscular Volume 88 fL (79-100) Mean Corpuscular Hemoglobin 30 pg (25-35) Mean Corpuscular Hemoglobin Concent 34 g/dL (31-37) Red Cell Distribution Width 14.2 % (11.5-14.5) Platelet Count 167 x10^3/uL (140-400) Neutrophils (%) (Auto) 81 % (31-73) Lymphocytes (%) (Auto) 15 % (24-48) Monocytes (%) (Auto) 4 % (0-9) Eosinophils (%) (Auto) 0 % (0-3) Basophils (%) (Auto) 0 % (0-3) Neutrophils # (Auto) 2.7 x10^3/uL (1.8-7.7) Lymphocytes # (Auto) 0.5 x10^3/uL (1.0-4.8) Monocytes # (Auto) 0.1 x10^3/uL (0.0-1.1) Eosinophils # (Auto) 0.0 x10^3/uL (0.0-0.7) Basophils # (Auto) 0.0 x10^3/uL (0.0-0.2) Sodium Level 140 mmol/L (136-145) Potassium Level 4.6 mmol/L (3.5-5.1) Chloride Level 109 mmol/L (98-107) Carbon Dioxide Level 21 mmol/L (21-32) Anion Gap 10 (6-14) Blood Urea Nitrogen 22 mg/dL (8-26) Creatinine 1.3 mg/dL (0.7-1.3) Estimated GFR (Cockcroft-Gault) 52.1 Glucose Level 241 mg/dL (70-99) Calcium Level 8.5 mg/dL (8.5-10.1) Phosphorus Level 2.7 mg/dL (2.6-4.7) Magnesium Level 2.2 mg/dL (1.8-2.4) Test 12/27/20 07:17 Glucose (Fingerstick) 208 mg/dL (70-99) Laboratory Tests Test 12/26/20 14:58 12/26/20 15:35 12/26/20 17:20 12/26/20 18:58 White Blood Count 6.1 x10^3/uL (4.0-11.0) Red Blood Count 4.24 x10^6/uL (4.30-5.70) Hemoglobin 12.8 g/dL (13.0-17.5) Hematocrit 37.4 % (39.0-53.0) Mean Corpuscular Volume 88 fL (79-100) Mean Corpuscular Hemoglobin 30 pg (25-35) Mean Corpuscular Hemoglobin Concent 34 g/dL (31-37) Red Cell Distribution Width 14.6 % (11.5-14.5) Platelet Count 195 x10^3/uL (140-400) Neutrophils (%) (Auto) 78 % (31-73) Lymphocytes (%) (Auto) 14 % (24-48) Monocytes (%) (Auto) 7 % (0-9) Eosinophils (%) (Auto) 1 % (0-3) Basophils (%) (Auto) 1 % (0-3) Neutrophils # (Auto) 4.7 x10^3/uL (1.8-7.7) Lymphocytes # (Auto) 0.8 x10^3/uL (1.0-4.8) Monocytes # (Auto) 0.4 x10^3/uL (0.0-1.1) Eosinophils # (Auto) 0.0 x10^3/uL (0.0-0.7) Basophils # (Auto) 0.1 x10^3/uL (0.0-0.2) Sodium Level 140 mmol/L (136-145) Potassium Level 3.7 mmol/L (3.5-5.1) Chloride Level 104 mmol/L (98-107) Carbon Dioxide Level 23 mmol/L (21-32) Anion Gap 13 (6-14) Blood Urea Nitrogen 28 mg/dL (8-26) Creatinine 1.8 mg/dL (0.7-1.3) Estimated GFR (Cockcroft-Gault) 35.8 BUN/Creatinine Ratio 16 (6-20) Glucose Level 200 mg/dL (70-99) Lactic Acid Level 2.7 mmol/L (0.4-2.0) 4.1 mmol/L (0.4-2.0) Calcium Level 9.5 mg/dL (8.5-10.1) Total Bilirubin 1.6 mg/dL (0.2-1.0) Aspartate Amino Transf (AST/SGOT) 21 U/L (15-37) Alanine Aminotransferase (ALT/SGPT) 27 U/L (16-63) Alkaline Phosphatase 98 U/L (46-116) Troponin I Quantitative < 0.017 ng/mL (0.000-0.055) < 0.017 ng/mL (0.000-0.055) OC-Tfs-G-Type Natriuretic Peptide 260 pg/mL (0-449) Total Protein 7.4 g/dL (6.4-8.2) Albumin 4.0 g/dL (3.4-5.0) Albumin/Globulin Ratio 1.2 (1.0-1.7) Lipase 153 U/L (73-393) O2 Saturation 93 % (92-99) Arterial Blood pH 7.41 (7.35-7.45) Arterial Blood pCO2 at Patient Temp 37 mmHg (35-46) Arterial Blood pO2 at Patient Temp 67 mmHg (65-108) Arterial Blood HCO3 23 mmol/L (21-28) Arterial Blood Base Excess -2 mmol/L (-3-3) Oxyhemoglobin 92.7 % Methemoglobin 0.4 % (0.0-1.9) Carbon Monoxide, Quantitative 0.3 % (0.0-1.9) FiO2 21 Urine Collection Type Unknown Urine Color Kelly Urine Clarity Clear Urine pH 5.5 (<5.0-8.0) Urine Specific [place] >=1.030 (1.000-1.030) Urine Protein 100 mg/dL (NEG-TRACE) Urine Glucose (UA) 100 mg/dL (NEG) Urine Ketones (Stick) 40 mg/dL (NEG) Urine Blood Negative (NEG) Urine Nitrite Negative (NEG) Urine Bilirubin Small (NEG) Urine Urobilinogen Dipstick 1.0 mg/dL (0.2 mg/dL) Urine Leukocyte Esterase Negative (NEG) Urine RBC 0 /HPF (0-2) Urine WBC Occ /HPF (0-4) Urine Squamous Epithelial Cells Few /LPF Urine Bacteria 0 /HPF (0-FEW) Urine Hyaline Casts Few /HPF Urine Mucus Marked /LPF Test 12/26/20 19:37 12/26/20 20:05 12/27/20 01:00 12/27/20 05:40 Glucose (Fingerstick) 310 mg/dL (70-99) Troponin I Quantitative < 0.017 ng/mL (0.000-0.055) Lactic Acid Level 1.4 mmol/L (0.4-2.0) White Blood Count 3.4 x10^3/uL (4.0-11.0) Red Blood Count 3.64 x10^6/uL (4.30-5.70) Hemoglobin 11.1 g/dL (13.0-17.5) Hematocrit 32.1 % (39.0-53.0) Mean Corpuscular Volume 88 fL (79-100) Mean Corpuscular Hemoglobin 30 pg (25-35) Mean Corpuscular Hemoglobin Concent 34 g/dL (31-37) Red Cell Distribution Width 14.2 % (11.5-14.5) Platelet Count 167 x10^3/uL (140-400) Neutrophils (%) (Auto) 81 % (31-73) Lymphocytes (%) (Auto) 15 % (24-48) Monocytes (%) (Auto) 4 % (0-9) Eosinophils (%) (Auto) 0 % (0-3) Basophils (%) (Auto) 0 % (0-3) Neutrophils # (Auto) 2.7 x10^3/uL (1.8-7.7) Lymphocytes # (Auto) 0.5 x10^3/uL (1.0-4.8) Monocytes # (Auto) 0.1 x10^3/uL (0.0-1.1) Eosinophils # (Auto) 0.0 x10^3/uL (0.0-0.7) Basophils # (Auto) 0.0 x10^3/uL (0.0-0.2) Sodium Level 140 mmol/L (136-145) Potassium Level 4.6 mmol/L (3.5-5.1) Chloride Level 109 mmol/L (98-107) Carbon Dioxide Level 21 mmol/L (21-32) Anion Gap 10 (6-14) Blood Urea Nitrogen 22 mg/dL (8-26) Creatinine 1.3 mg/dL (0.7-1.3) Estimated GFR (Cockcroft-Gault) 52.1 Glucose Level 241 mg/dL (70-99) Calcium Level 8.5 mg/dL (8.5-10.1) Phosphorus Level 2.7 mg/dL (2.6-4.7) Magnesium Level 2.2 mg/dL (1.8-2.4) Test 12/27/20 07:17 Glucose (Fingerstick) 208 mg/dL (70-99) Review All relevant outside records, renal labs, imaging studies, telemetry/EKG's were reviewed. Images Images INDICATION: Chest pain COMPARISON: None available TECHNIQUE: Portable frontal view of the chest is provided. FINDINGS: The cardiomediastinal silhouette is within normal limits. Lungs are clear. There are no significant pleural effusions. There is no pulmonary vascular congestion. No pneumothorax. No suspicious osseous abnormality. IMPRESSION: There is no acute cardiopulmonary process. AIMEE GARCIA MD Dec 27, 2020 09:08
--- NOTE | 2020-12-27 10:22 | PDOC ---
[employer] PROGRESS NOTE Date of Service DOS: DATE: 12/27/20 TIME: 10:20 Chief Complaint Chief Complaint Acute respiratory distress Atypical pneumonia, possible viral etiology ESTEFANY due to vasomotor nephropathy Lactic acidemia History of CAD with multiple stents History of hypertension History of dyslipidemia History of diabetes mellitus type 2 History of Present Illness History of Present Illness 12/27/2020 Patient seen and examined Chart reviewed Discussed with RN Discussed with case management Currently getting normal saline at 100 cc an hour He ate breakfast Creatinine is down from 1.8-1.3 Vitals/I&O Vitals/I&O: Vital Signs Date Time Temp Pulse Resp B/P (MAP) Pulse Ox O2 Delivery O2 Flow Rate FiO2 12/27/20 07:50 84 125/65 12/27/20 07:30 97.9 18 98 Room Air 97.9 I & O 12/26/20 12/26/20 12/27/20 15:00 23:00 07:00 Intake Total 220 ml Balance 220 ml Physical Exam General: Alert, Oriented X3 Heart: Regular rate Lungs: Clear Abdomen: Normal bowel sounds Extremities: No clubbing Skin: No rashes Labs Labs: Laboratory Tests Test 12/26/20 14:58 12/26/20 15:35 12/26/20 17:20 12/26/20 18:58 White Blood Count 6.1 x10^3/uL (4.0-11.0) Red Blood Count 4.24 x10^6/uL (4.30-5.70) Hemoglobin 12.8 g/dL (13.0-17.5) Hematocrit 37.4 % (39.0-53.0) Mean Corpuscular Volume 88 fL (79-100) Mean Corpuscular Hemoglobin 30 pg (25-35) Mean Corpuscular Hemoglobin Concent 34 g/dL (31-37) Red Cell Distribution Width 14.6 % (11.5-14.5) Platelet Count 195 x10^3/uL (140-400) Neutrophils (%) (Auto) 78 % (31-73) Lymphocytes (%) (Auto) 14 % (24-48) Monocytes (%) (Auto) 7 % (0-9) Eosinophils (%) (Auto) 1 % (0-3) Basophils (%) (Auto) 1 % (0-3) Neutrophils # (Auto) 4.7 x10^3/uL (1.8-7.7) Lymphocytes # (Auto) 0.8 x10^3/uL (1.0-4.8) Monocytes # (Auto) 0.4 x10^3/uL (0.0-1.1) Eosinophils # (Auto) 0.0 x10^3/uL (0.0-0.7) Basophils # (Auto) 0.1 x10^3/uL (0.0-0.2) Sodium Level 140 mmol/L (136-145) Potassium Level 3.7 mmol/L (3.5-5.1) Chloride Level 104 mmol/L (98-107) Carbon Dioxide Level 23 mmol/L (21-32) Anion Gap 13 (6-14) Blood Urea Nitrogen 28 mg/dL (8-26) Creatinine 1.8 mg/dL (0.7-1.3) Estimated GFR (Cockcroft-Gault) 35.8 BUN/Creatinine Ratio 16 (6-20) Glucose Level 200 mg/dL (70-99) Lactic Acid Level 2.7 mmol/L (0.4-2.0) 4.1 mmol/L (0.4-2.0) Calcium Level 9.5 mg/dL (8.5-10.1) Total Bilirubin 1.6 mg/dL (0.2-1.0) Aspartate Amino Transf (AST/SGOT) 21 U/L (15-37) Alanine Aminotransferase (ALT/SGPT) 27 U/L (16-63) Alkaline Phosphatase 98 U/L (46-116) Troponin I Quantitative < 0.017 ng/mL (0.000-0.055) < 0.017 ng/mL (0.000-0.055) UI-Gye-Y-Type Natriuretic Peptide 260 pg/mL (0-449) Total Protein 7.4 g/dL (6.4-8.2) Albumin 4.0 g/dL (3.4-5.0) Albumin/Globulin Ratio 1.2 (1.0-1.7) Lipase 153 U/L (73-393) O2 Saturation 93 % (92-99) Arterial Blood pH 7.41 (7.35-7.45) Arterial Blood pCO2 at Patient Temp 37 mmHg (35-46) Arterial Blood pO2 at Patient Temp 67 mmHg (65-108) Arterial Blood HCO3 23 mmol/L (21-28) Arterial Blood Base Excess -2 mmol/L (-3-3) Oxyhemoglobin 92.7 % Methemoglobin 0.4 % (0.0-1.9) Carbon Monoxide, Quantitative 0.3 % (0.0-1.9) FiO2 21 Urine Collection Type Unknown Urine Color Kelly Urine Clarity Clear Urine pH 5.5 (<5.0-8.0) Urine Specific [place] >=1.030 (1.000-1.030) Urine Protein 100 mg/dL (NEG-TRACE) Urine Glucose (UA) 100 mg/dL (NEG) Urine Ketones (Stick) 40 mg/dL (NEG) Urine Blood Negative (NEG) Urine Nitrite Negative (NEG) Urine Bilirubin Small (NEG) Urine Urobilinogen Dipstick 1.0 mg/dL (0.2 mg/dL) Urine Leukocyte Esterase Negative (NEG) Urine RBC 0 /HPF (0-2) Urine WBC Occ /HPF (0-4) Urine Squamous Epithelial Cells Few /LPF Urine Bacteria 0 /HPF (0-FEW) Urine Hyaline Casts Few /HPF Urine Mucus Marked /LPF Test 12/26/20 19:37 12/26/20 20:05 12/27/20 01:00 12/27/20 05:40 Glucose (Fingerstick) 310 mg/dL (70-99) Troponin I Quantitative < 0.017 ng/mL (0.000-0.055) Lactic Acid Level 1.4 mmol/L (0.4-2.0) White Blood Count 3.4 x10^3/uL (4.0-11.0) Red Blood Count 3.64 x10^6/uL (4.30-5.70) Hemoglobin 11.1 g/dL (13.0-17.5) Hematocrit 32.1 % (39.0-53.0) Mean Corpuscular Volume 88 fL (79-100) Mean Corpuscular Hemoglobin 30 pg (25-35) Mean Corpuscular Hemoglobin Concent 34 g/dL (31-37) Red Cell Distribution Width 14.2 % (11.5-14.5) Platelet Count 167 x10^3/uL (140-400) Neutrophils (%) (Auto) 81 % (31-73) Lymphocytes (%) (Auto) 15 % (24-48) Monocytes (%) (Auto) 4 % (0-9) Eosinophils (%) (Auto) 0 % (0-3) Basophils (%) (Auto) 0 % (0-3) Neutrophils # (Auto) 2.7 x10^3/uL (1.8-7.7) Lymphocytes # (Auto) 0.5 x10^3/uL (1.0-4.8) Monocytes # (Auto) 0.1 x10^3/uL (0.0-1.1) Eosinophils # (Auto) 0.0 x10^3/uL (0.0-0.7) Basophils # (Auto) 0.0 x10^3/uL (0.0-0.2) Sodium Level 140 mmol/L (136-145) Potassium Level 4.6 mmol/L (3.5-5.1) Chloride Level 109 mmol/L (98-107) Carbon Dioxide Level 21 mmol/L (21-32) Anion Gap 10 (6-14) Blood Urea Nitrogen 22 mg/dL (8-26) Creatinine 1.3 mg/dL (0.7-1.3) Estimated GFR (Cockcroft-Gault) 52.1 Glucose Level 241 mg/dL (70-99) Calcium Level 8.5 mg/dL (8.5-10.1) Phosphorus Level 2.7 mg/dL (2.6-4.7) Magnesium Level 2.2 mg/dL (1.8-2.4) Test 12/27/20 07:17 Glucose (Fingerstick) 208 mg/dL (70-99) Assessment and Plan Assessmemt and Plan Problems Medical Problems: (1) Acute kidney injury Status: Acute (2) Shortness of breath Status: Acute Acute respiratory distress Atypical pneumonia, possible viral etiology ESTEFANY due to vasomotor nephropathy Lactic acidemia History of CAD with multiple stents History of hypertension History of dyslipidemia History of diabetes mellitus type 2 Plan IV fluids Trend creatinine Home meds DVT prophylaxis Full code Appreciate nephrology input PT OT Might need senior living? Supportive care GI prophylaxis Advance diet Encourage p.o. intake Comment Review of Relevant I have reviewed the following items rohini (where applicable) has been applied. Medications: Current Medications Medications (Trade) Dose Ordered Sig/Garrett Route PRN Reason Start Time Stop Time Status Last Admin Dose Admin Methylprednisolone Sodium Succinate (SOLU-Medrol 125MG VIAL) 125 mg 1X ONCE IV 12/26/20 15:15 12/26/20 15:16 DC 12/26/20 15:28 Albuterol Sulfate (Ventolin Neb Soln) 2.5 mg 1X ONCE NEB 12/26/20 15:15 12/26/20 15:16 DC 12/26/20 15:44 Sodium Chloride 1,000 ml @ 1,000 mls/hr 1X ONCE IV 12/26/20 16:00 12/26/20 16:59 DC 12/26/20 16:24 Insulin Human Lispro (HumaLOG) 0-7 UNITS TIDWMEALS SQ 12/27/20 08:00 12/27/20 07:55 Sodium Chloride 1,000 ml @ 100 mls/hr Q10H IV 12/26/20 19:15 12/27/20 05:15 Aspirin (Ecotrin) 81 mg DAILY PO 12/27/20 09:00 12/27/20 07:50 Atorvastatin Calcium (Lipitor) 10 mg QHS PO 12/26/20 21:00 12/26/20 21:11 Clopidogrel Bisulfate (Plavix) 75 mg DAILY PO 12/27/20 09:00 12/27/20 07:49 Meclizine HCl (Antivert) 12.5 mg TID PO 12/26/20 21:00 12/27/20 07:49 Metoprolol Succinate (Toprol Xl) 25 mg DAILY PO 12/27/20 09:00 12/27/20 07:50 Sodium Chloride 1,000 ml @ 125 mls/hr 1X ONCE IV 12/26/20 20:30 12/27/20 04:29 DC 12/26/20 21:11 Justifications for Admission Other Justification RAGHAVENDRA ALY III DO Dec 27, 2020 10:22
--- NOTE | 2020-12-27 10:42 | NUR ---
SW following. Discussed with RN, pt from home alone, room air, ada diet. Nephrology following. Pulmonology consulted. RN advised no SW needs at this time. SW will continue to follow.
[2020-12-27 11:30] VITALS: BP 125/62
--- NOTE | 2020-12-27 13:21 | PDOC ---
PULMONARY PROGRESS NOTES DATE: 12/27/20 TIME: 13:20 Vitals Vital Signs Date Time Temp Pulse Resp B/P (MAP) Pulse Ox O2 Delivery O2 Flow Rate FiO2 12/27/20 11:30 97.8 65 18 125/62 (83) 97 Room Air 97.8 Lungs: Clear Labs Laboratory Tests Test 12/26/20 14:58 12/26/20 15:35 12/26/20 17:20 12/26/20 18:58 White Blood Count 6.1 x10^3/uL (4.0-11.0) Red Blood Count 4.24 x10^6/uL (4.30-5.70) Hemoglobin 12.8 g/dL (13.0-17.5) Hematocrit 37.4 % (39.0-53.0) Mean Corpuscular Volume 88 fL (79-100) Mean Corpuscular Hemoglobin 30 pg (25-35) Mean Corpuscular Hemoglobin Concent 34 g/dL (31-37) Red Cell Distribution Width 14.6 % (11.5-14.5) Platelet Count 195 x10^3/uL (140-400) Neutrophils (%) (Auto) 78 % (31-73) Lymphocytes (%) (Auto) 14 % (24-48) Monocytes (%) (Auto) 7 % (0-9) Eosinophils (%) (Auto) 1 % (0-3) Basophils (%) (Auto) 1 % (0-3) Neutrophils # (Auto) 4.7 x10^3/uL (1.8-7.7) Lymphocytes # (Auto) 0.8 x10^3/uL (1.0-4.8) Monocytes # (Auto) 0.4 x10^3/uL (0.0-1.1) Eosinophils # (Auto) 0.0 x10^3/uL (0.0-0.7) Basophils # (Auto) 0.1 x10^3/uL (0.0-0.2) Sodium Level 140 mmol/L (136-145) Potassium Level 3.7 mmol/L (3.5-5.1) Chloride Level 104 mmol/L (98-107) Carbon Dioxide Level 23 mmol/L (21-32) Anion Gap 13 (6-14) Blood Urea Nitrogen 28 mg/dL (8-26) Creatinine 1.8 mg/dL (0.7-1.3) Estimated GFR (Cockcroft-Gault) 35.8 BUN/Creatinine Ratio 16 (6-20) Glucose Level 200 mg/dL (70-99) Lactic Acid Level 2.7 mmol/L (0.4-2.0) 4.1 mmol/L (0.4-2.0) Calcium Level 9.5 mg/dL (8.5-10.1) Total Bilirubin 1.6 mg/dL (0.2-1.0) Aspartate Amino Transf (AST/SGOT) 21 U/L (15-37) Alanine Aminotransferase (ALT/SGPT) 27 U/L (16-63) Alkaline Phosphatase 98 U/L (46-116) Troponin I Quantitative < 0.017 ng/mL (0.000-0.055) < 0.017 ng/mL (0.000-0.055) MY-Hcn-K-Type Natriuretic Peptide 260 pg/mL (0-449) Total Protein 7.4 g/dL (6.4-8.2) Albumin 4.0 g/dL (3.4-5.0) Albumin/Globulin Ratio 1.2 (1.0-1.7) Lipase 153 U/L (73-393) O2 Saturation 93 % (92-99) Arterial Blood pH 7.41 (7.35-7.45) Arterial Blood pCO2 at Patient Temp 37 mmHg (35-46) Arterial Blood pO2 at Patient Temp 67 mmHg (65-108) Arterial Blood HCO3 23 mmol/L (21-28) Arterial Blood Base Excess -2 mmol/L (-3-3) Oxyhemoglobin 92.7 % Methemoglobin 0.4 % (0.0-1.9) Carbon Monoxide, Quantitative 0.3 % (0.0-1.9) FiO2 21 Urine Collection Type Unknown Urine Color Kelly Urine Clarity Clear Urine pH 5.5 (<5.0-8.0) Urine Specific [place] >=1.030 (1.000-1.030) Urine Protein 100 mg/dL (NEG-TRACE) Urine Glucose (UA) 100 mg/dL (NEG) Urine Ketones (Stick) 40 mg/dL (NEG) Urine Blood Negative (NEG) Urine Nitrite Negative (NEG) Urine Bilirubin Small (NEG) Urine Urobilinogen Dipstick 1.0 mg/dL (0.2 mg/dL) Urine Leukocyte Esterase Negative (NEG) Urine RBC 0 /HPF (0-2) Urine WBC Occ /HPF (0-4) Urine Squamous Epithelial Cells Few /LPF Urine Bacteria 0 /HPF (0-FEW) Urine Hyaline Casts Few /HPF Urine Mucus Marked /LPF Test 12/26/20 19:37 12/26/20 20:05 12/27/20 01:00 12/27/20 05:40 Glucose (Fingerstick) 310 mg/dL (70-99) Troponin I Quantitative < 0.017 ng/mL (0.000-0.055) Lactic Acid Level 1.4 mmol/L (0.4-2.0) White Blood Count 3.4 x10^3/uL (4.0-11.0) Red Blood Count 3.64 x10^6/uL (4.30-5.70) Hemoglobin 11.1 g/dL (13.0-17.5) Hematocrit 32.1 % (39.0-53.0) Mean Corpuscular Volume 88 fL (79-100) Mean Corpuscular Hemoglobin 30 pg (25-35) Mean Corpuscular Hemoglobin Concent 34 g/dL (31-37) Red Cell Distribution Width 14.2 % (11.5-14.5) Platelet Count 167 x10^3/uL (140-400) Neutrophils (%) (Auto) 81 % (31-73) Lymphocytes (%) (Auto) 15 % (24-48) Monocytes (%) (Auto) 4 % (0-9) Eosinophils (%) (Auto) 0 % (0-3) Basophils (%) (Auto) 0 % (0-3) Neutrophils # (Auto) 2.7 x10^3/uL (1.8-7.7) Lymphocytes # (Auto) 0.5 x10^3/uL (1.0-4.8) Monocytes # (Auto) 0.1 x10^3/uL (0.0-1.1) Eosinophils # (Auto) 0.0 x10^3/uL (0.0-0.7) Basophils # (Auto) 0.0 x10^3/uL (0.0-0.2) Sodium Level 140 mmol/L (136-145) Potassium Level 4.6 mmol/L (3.5-5.1) Chloride Level 109 mmol/L (98-107) Carbon Dioxide Level 21 mmol/L (21-32) Anion Gap 10 (6-14) Blood Urea Nitrogen 22 mg/dL (8-26) Creatinine 1.3 mg/dL (0.7-1.3) Estimated GFR (Cockcroft-Gault) 52.1 Glucose Level 241 mg/dL (70-99) Calcium Level 8.5 mg/dL (8.5-10.1) Phosphorus Level 2.7 mg/dL (2.6-4.7) Magnesium Level 2.2 mg/dL (1.8-2.4) Test 12/27/20 07:17 12/27/20 11:34 Glucose (Fingerstick) 208 mg/dL (70-99) 135 mg/dL (70-99) Laboratory Tests Test 12/26/20 14:58 12/26/20 15:35 12/26/20 17:20 12/26/20 18:58 White Blood Count 6.1 x10^3/uL (4.0-11.0) Red Blood Count 4.24 x10^6/uL (4.30-5.70) Hemoglobin 12.8 g/dL (13.0-17.5) Hematocrit 37.4 % (39.0-53.0) Mean Corpuscular Volume 88 fL (79-100) Mean Corpuscular Hemoglobin 30 pg (25-35) Mean Corpuscular Hemoglobin Concent 34 g/dL (31-37) Red Cell Distribution Width 14.6 % (11.5-14.5) Platelet Count 195 x10^3/uL (140-400) Neutrophils (%) (Auto) 78 % (31-73) Lymphocytes (%) (Auto) 14 % (24-48) Monocytes (%) (Auto) 7 % (0-9) Eosinophils (%) (Auto) 1 % (0-3) Basophils (%) (Auto) 1 % (0-3) Neutrophils # (Auto) 4.7 x10^3/uL (1.8-7.7) Lymphocytes # (Auto) 0.8 x10^3/uL (1.0-4.8) Monocytes # (Auto) 0.4 x10^3/uL (0.0-1.1) Eosinophils # (Auto) 0.0 x10^3/uL (0.0-0.7) Basophils # (Auto) 0.1 x10^3/uL (0.0-0.2) Sodium Level 140 mmol/L (136-145) Potassium Level 3.7 mmol/L (3.5-5.1) Chloride Level 104 mmol/L (98-107) Carbon Dioxide Level 23 mmol/L (21-32) Anion Gap 13 (6-14) Blood Urea Nitrogen 28 mg/dL (8-26) Creatinine 1.8 mg/dL (0.7-1.3) Estimated GFR (Cockcroft-Gault) 35.8 BUN/Creatinine Ratio 16 (6-20) Glucose Level 200 mg/dL (70-99) Lactic Acid Level 2.7 mmol/L (0.4-2.0) 4.1 mmol/L (0.4-2.0) Calcium Level 9.5 mg/dL (8.5-10.1) Total Bilirubin 1.6 mg/dL (0.2-1.0) Aspartate Amino Transf (AST/SGOT) 21 U/L (15-37) Alanine Aminotransferase (ALT/SGPT) 27 U/L (16-63) Alkaline Phosphatase 98 U/L (46-116) Troponin I Quantitative < 0.017 ng/mL (0.000-0.055) < 0.017 ng/mL (0.000-0.055) PV-Ash-U-Type Natriuretic Peptide 260 pg/mL (0-449) Total Protein 7.4 g/dL (6.4-8.2) Albumin 4.0 g/dL (3.4-5.0) Albumin/Globulin Ratio 1.2 (1.0-1.7) Lipase 153 U/L (73-393) O2 Saturation 93 % (92-99) Arterial Blood pH 7.41 (7.35-7.45) Arterial Blood pCO2 at Patient Temp 37 mmHg (35-46) Arterial Blood pO2 at Patient Temp 67 mmHg (65-108) Arterial Blood HCO3 23 mmol/L (21-28) Arterial Blood Base Excess -2 mmol/L (-3-3) Oxyhemoglobin 92.7 % Methemoglobin 0.4 % (0.0-1.9) Carbon Monoxide, Quantitative 0.3 % (0.0-1.9) FiO2 21 Urine Collection Type Unknown Urine Color Kelly Urine Clarity Clear Urine pH 5.5 (<5.0-8.0) Urine Specific [place] >=1.030 (1.000-1.030) Urine Protein 100 mg/dL (NEG-TRACE) Urine Glucose (UA) 100 mg/dL (NEG) Urine Ketones (Stick) 40 mg/dL (NEG) Urine Blood Negative (NEG) Urine Nitrite Negative (NEG) Urine Bilirubin Small (NEG) Urine Urobilinogen Dipstick 1.0 mg/dL (0.2 mg/dL) Urine Leukocyte Esterase Negative (NEG) Urine RBC 0 /HPF (0-2) Urine WBC Occ /HPF (0-4) Urine Squamous Epithelial Cells Few /LPF Urine Bacteria 0 /HPF (0-FEW) Urine Hyaline Casts Few /HPF Urine Mucus Marked /LPF Test 12/26/20 19:37 12/26/20 20:05 12/27/20 01:00 12/27/20 05:40 Glucose (Fingerstick) 310 mg/dL (70-99) Troponin I Quantitative < 0.017 ng/mL (0.000-0.055) Lactic Acid Level 1.4 mmol/L (0.4-2.0) White Blood Count 3.4 x10^3/uL (4.0-11.0) Red Blood Count 3.64 x10^6/uL (4.30-5.70) Hemoglobin 11.1 g/dL (13.0-17.5) Hematocrit 32.1 % (39.0-53.0) Mean Corpuscular Volume 88 fL (79-100) Mean Corpuscular Hemoglobin 30 pg (25-35) Mean Corpuscular Hemoglobin Concent 34 g/dL (31-37) Red Cell Distribution Width 14.2 % (11.5-14.5) Platelet Count 167 x10^3/uL (140-400) Neutrophils (%) (Auto) 81 % (31-73) Lymphocytes (%) (Auto) 15 % (24-48) Monocytes (%) (Auto) 4 % (0-9) Eosinophils (%) (Auto) 0 % (0-3) Basophils (%) (Auto) 0 % (0-3) Neutrophils # (Auto) 2.7 x10^3/uL (1.8-7.7) Lymphocytes # (Auto) 0.5 x10^3/uL (1.0-4.8) Monocytes # (Auto) 0.1 x10^3/uL (0.0-1.1) Eosinophils # (Auto) 0.0 x10^3/uL (0.0-0.7) Basophils # (Auto) 0.0 x10^3/uL (0.0-0.2) Sodium Level 140 mmol/L (136-145) Potassium Level 4.6 mmol/L (3.5-5.1) Chloride Level 109 mmol/L (98-107) Carbon Dioxide Level 21 mmol/L (21-32) Anion Gap 10 (6-14) Blood Urea Nitrogen 22 mg/dL (8-26) Creatinine 1.3 mg/dL (0.7-1.3) Estimated GFR (Cockcroft-Gault) 52.1 Glucose Level 241 mg/dL (70-99) Calcium Level 8.5 mg/dL (8.5-10.1) Phosphorus Level 2.7 mg/dL (2.6-4.7) Magnesium Level 2.2 mg/dL (1.8-2.4) Test 12/27/20 07:17 12/27/20 11:34 Glucose (Fingerstick) 208 mg/dL (70-99) 135 mg/dL (70-99) Medications Active Scripts Medications Dose Route/Sig Max Daily Dose Days Date Category Meclizine Hcl 12.5 Mg Tablet 1 Tab PO TID 11/30/14 Reported Aspir 81 (Aspirin) 81 Mg Tablet.dr 1 Tab PO DAILY 11/30/14 Reported Glimepiride 1 Mg Tablet 1 Tab PO DAILY 11/30/14 Reported Metformin Hcl 500 Mg Tablet 1 Tab PO BID 11/30/14 Reported Nitrostat (Nitroglycerin) 0.4 Mg Tab.subl 1 Tab SL UD 11/30/14 Reported Zocor (Simvastatin) 10 Mg Tablet 1 Tab PO QHS 11/30/14 Reported Lipitor (Atorvastatin Calcium) 10 Mg Tablet 1 Tab PO QHS 11/30/14 Reported Plavix (Clopidogrel Bisulfate) 75 Mg Tablet 1 Tab PO DAILY 11/30/14 Reported Toprol Xl (Metoprolol Succinate) 25 Mg Tab.er.24h 1 Tab PO DAILY 11/30/14 Reported Impression . COUGH MULTIFACTORIAL AECOPD SEE ORDERS MARLEN SCHULZ MD Dec 27, 2020 13:20
[2020-12-27] MEDS ORDERED: methylPREDNISolone SOD SUCC PF 125 MG/2 ML VIAL. IV ONE (15:30)
[2020-12-27 15:46] VITALS: BP 133/79
[2020-12-27 19:00] VITALS: BP 149/75
[2020-12-27] MEDS: ATORVASTATIN CALCIUM 10 MG TABLET. PO SCH (20:46)
[2020-12-27 23:00] VITALS: BP 137/81
[2020-12-28] MEDS: IV NORMAL SALINE 1000ML BAG 1,000 ML IV SCH ×3 (02:21→21:15)
[2020-12-28 03:00] VITALS: BP 147/71
--- NOTE | 2020-12-28 03:44 | CONS ---
DATE OF CONSULTATION: 12/27/2020 ATTENDING PHYSICIAN: Lobo Givens MD REASON FOR CONSULTATION: The patient is seen in pulmonary consultation at the request of Dr. Givens for increasing shortness of breath. HISTORY OF PRESENT ILLNESS: The patient is an 89-year-old with a history of COPD, unknown FEV1, quit tobacco 40 years ago. Has had increasing cough, mucus production over the last 2 ____ weeks. He has paroxysmal coughing spells almost leading to being passing out. The patient denies any new prescription medications. He has not had any occupational or significant avocational exposures. He does have one new pet at home, but he does not think he is allergic to the puppy. He has no birds at home. No recent construction going on at the house. He denies any significant reflux. He denies eating close to bedtime. Denies any significant intake of caffeinated beverages. PAST MEDICAL HISTORY: Remarkable for coronary artery disease with previous stent placement; diabetes type 2; dyslipidemia; COPD, unknown FEV1; tobacco-dependence, in remission. ALLERGIES: TETRACYCLINE. FAMILY HISTORY: Noncontributory in this age group. SOCIAL HISTORY: He is a former smoker, quit tobacco 45 years ago. Lives with his son. He continues to drive. REVIEW OF SYSTEMS: As indicated above, otherwise a 10-point system was reviewed and negative. CONSTITUTIONAL: No fever or chills. EYES: No change in visual acuity. HENT: No nasal congestion or sore throat. PULMONARY: As indicated above. CARDIOVASCULAR: No chest pain or pressure. GASTROINTESTINAL: No nausea, vomiting, diarrhea. GENITOURINARY: No dysuria or frequency. MUSCULOSKELETAL: No localized muscle aches or joint pains. SKIN: No skin rashes. NEUROLOGIC: No headaches, diplopia or blurred vision. MEDICATIONS: Home medication list was reviewed. He is on Plavix, Lipitor, simvastatin, nitroglycerin, metoprolol, aspirin, meclizine, and metformin along with glimepiride. PHYSICAL EXAMINATION: GENERAL: On examination, the patient did not have paroxysmal coughing spells during my evaluation. He was also wheezing at times. On room air, saturation was 97%. HEENT: The sclerae were nonicteric. NECK: Jugular venous distention was not elevated. No lymphadenopathy. CHEST: Full expansion. LUNGS: Adequate air flow, no wheezes. CARDIOVASCULAR: Regular rate and rhythm with S1, S2, no S3. ABDOMEN: Soft, nontender. EXTREMITIES: No clubbing, cyanosis or edema. LABORATORY DATA: SARS-CoV-2 rapid test was negative. Electrolytes were noted. Arterial blood gas; pH of 7.41, PaCO2 of 37, pO2 of 67 on room air. White count was normal. DIAGNOSTIC DATA: Chest x-ray, no infiltrates. IMPRESSION: 1. Persistent paroxysmal cough, multifactorial, suspect secondary to nonspecific acute bronchitis and reflux. 2. Acute exacerbation of chronic obstructive pulmonary disease. 3. Tobacco dependence, in remission. 4. Chronic obstructive pulmonary disease, unknown FEV1. 5. Hypertension. 6. Type 2 diabetes. PLAN: 1. We will continue current Rx with steroids. 2. Protonix. 3. If the patient continues to have significant wheezing, may consider discontinuing beta parish. 4. No eating close to bedtime. I do appreciate the privilege in sharing in the patient's care. MARNI/DIOGO DR: Colette TID: [id number]
[2020-12-28 04:18] LABS: CALCIUM 8.6 mg/dL (8.5-10.1); CREATININE 1.4 mg/dL (0.7-1.3); GFR 47.8; POTASSIUM 4.4 mmol/L (3.5-5.1)
[2020-12-28 07:00] VITALS: BP 131/53
--- NOTE | 2020-12-28 08:35 | PDOC ---
PULMONARY PROGRESS NOTES DATE: 12/28/20 TIME: 08:34 Subjective pt. resting on room air no increase in cough no SOB no overnight events Vitals Vital Signs Date Time Temp Pulse Resp B/P (MAP) Pulse Ox O2 Delivery O2 Flow Rate FiO2 12/28/20 07:00 98.0 61 20 131/53 (79) 97 Room Air 98.0 ROS: No Nausea, No Chest Pain, No Abdominal Pain General: Alert Lungs: Clear Cardiovascular: S1, S2 Abdomen: Soft Neuro Exam: Alert Extremities: No Edema Skin: Warm Labs Laboratory Tests Test 12/26/20 14:58 12/26/20 15:35 12/26/20 17:20 12/26/20 18:58 White Blood Count 6.1 x10^3/uL (4.0-11.0) Red Blood Count 4.24 x10^6/uL (4.30-5.70) Hemoglobin 12.8 g/dL (13.0-17.5) Hematocrit 37.4 % (39.0-53.0) Mean Corpuscular Volume 88 fL (79-100) Mean Corpuscular Hemoglobin 30 pg (25-35) Mean Corpuscular Hemoglobin Concent 34 g/dL (31-37) Red Cell Distribution Width 14.6 % (11.5-14.5) Platelet Count 195 x10^3/uL (140-400) Neutrophils (%) (Auto) 78 % (31-73) Lymphocytes (%) (Auto) 14 % (24-48) Monocytes (%) (Auto) 7 % (0-9) Eosinophils (%) (Auto) 1 % (0-3) Basophils (%) (Auto) 1 % (0-3) Neutrophils # (Auto) 4.7 x10^3/uL (1.8-7.7) Lymphocytes # (Auto) 0.8 x10^3/uL (1.0-4.8) Monocytes # (Auto) 0.4 x10^3/uL (0.0-1.1) Eosinophils # (Auto) 0.0 x10^3/uL (0.0-0.7) Basophils # (Auto) 0.1 x10^3/uL (0.0-0.2) Sodium Level 140 mmol/L (136-145) Potassium Level 3.7 mmol/L (3.5-5.1) Chloride Level 104 mmol/L (98-107) Carbon Dioxide Level 23 mmol/L (21-32) Anion Gap 13 (6-14) Blood Urea Nitrogen 28 mg/dL (8-26) Creatinine 1.8 mg/dL (0.7-1.3) Estimated GFR (Cockcroft-Gault) 35.8 BUN/Creatinine Ratio 16 (6-20) Glucose Level 200 mg/dL (70-99) Lactic Acid Level 2.7 mmol/L (0.4-2.0) 4.1 mmol/L (0.4-2.0) Calcium Level 9.5 mg/dL (8.5-10.1) Total Bilirubin 1.6 mg/dL (0.2-1.0) Aspartate Amino Transf (AST/SGOT) 21 U/L (15-37) Alanine Aminotransferase (ALT/SGPT) 27 U/L (16-63) Alkaline Phosphatase 98 U/L (46-116) Troponin I Quantitative < 0.017 ng/mL (0.000-0.055) < 0.017 ng/mL (0.000-0.055) QG-Iwn-L-Type Natriuretic Peptide 260 pg/mL (0-449) Total Protein 7.4 g/dL (6.4-8.2) Albumin 4.0 g/dL (3.4-5.0) Albumin/Globulin Ratio 1.2 (1.0-1.7) Lipase 153 U/L (73-393) O2 Saturation 93 % (92-99) Arterial Blood pH 7.41 (7.35-7.45) Arterial Blood pCO2 at Patient Temp 37 mmHg (35-46) Arterial Blood pO2 at Patient Temp 67 mmHg (65-108) Arterial Blood HCO3 23 mmol/L (21-28) Arterial Blood Base Excess -2 mmol/L (-3-3) Oxyhemoglobin 92.7 % Methemoglobin 0.4 % (0.0-1.9) Carbon Monoxide, Quantitative 0.3 % (0.0-1.9) FiO2 21 Urine Collection Type Unknown Urine Color Kelly Urine Clarity Clear Urine pH 5.5 (<5.0-8.0) Urine Specific [place] >=1.030 (1.000-1.030) Urine Protein 100 mg/dL (NEG-TRACE) Urine Glucose (UA) 100 mg/dL (NEG) Urine Ketones (Stick) 40 mg/dL (NEG) Urine Blood Negative (NEG) Urine Nitrite Negative (NEG) Urine Bilirubin Small (NEG) Urine Urobilinogen Dipstick 1.0 mg/dL (0.2 mg/dL) Urine Leukocyte Esterase Negative (NEG) Urine RBC 0 /HPF (0-2) Urine WBC Occ /HPF (0-4) Urine Squamous Epithelial Cells Few /LPF Urine Bacteria 0 /HPF (0-FEW) Urine Hyaline Casts Few /HPF Urine Mucus Marked /LPF Test 12/26/20 19:37 12/26/20 20:05 12/27/20 01:00 12/27/20 05:40 Glucose (Fingerstick) 310 mg/dL (70-99) Troponin I Quantitative < 0.017 ng/mL (0.000-0.055) Lactic Acid Level 1.4 mmol/L (0.4-2.0) White Blood Count 3.4 x10^3/uL (4.0-11.0) Red Blood Count 3.64 x10^6/uL (4.30-5.70) Hemoglobin 11.1 g/dL (13.0-17.5) Hematocrit 32.1 % (39.0-53.0) Mean Corpuscular Volume 88 fL (79-100) Mean Corpuscular Hemoglobin 30 pg (25-35) Mean Corpuscular Hemoglobin Concent 34 g/dL (31-37) Red Cell Distribution Width 14.2 % (11.5-14.5) Platelet Count 167 x10^3/uL (140-400) Neutrophils (%) (Auto) 81 % (31-73) Lymphocytes (%) (Auto) 15 % (24-48) Monocytes (%) (Auto) 4 % (0-9) Eosinophils (%) (Auto) 0 % (0-3) Basophils (%) (Auto) 0 % (0-3) Neutrophils # (Auto) 2.7 x10^3/uL (1.8-7.7) Lymphocytes # (Auto) 0.5 x10^3/uL (1.0-4.8) Monocytes # (Auto) 0.1 x10^3/uL (0.0-1.1) Eosinophils # (Auto) 0.0 x10^3/uL (0.0-0.7) Basophils # (Auto) 0.0 x10^3/uL (0.0-0.2) Sodium Level 140 mmol/L (136-145) Potassium Level 4.6 mmol/L (3.5-5.1) Chloride Level 109 mmol/L (98-107) Carbon Dioxide Level 21 mmol/L (21-32) Anion Gap 10 (6-14) Blood Urea Nitrogen 22 mg/dL (8-26) Creatinine 1.3 mg/dL (0.7-1.3) Estimated GFR (Cockcroft-Gault) 52.1 Glucose Level 241 mg/dL (70-99) Calcium Level 8.5 mg/dL (8.5-10.1) Phosphorus Level 2.7 mg/dL (2.6-4.7) Magnesium Level 2.2 mg/dL (1.8-2.4) Test 12/27/20 07:17 12/27/20 11:34 12/27/20 14:50 12/27/20 16:46 Glucose (Fingerstick) 208 mg/dL (70-99) 135 mg/dL (70-99) 140 mg/dL (70-99) SARS-CoV-2 RNA (MARCUS) Negative (Negative) SARS-CoV-2 Antigen (Rapid) Negative (NEGATIVE) Test 12/27/20 21:17 12/28/20 03:30 12/28/20 07:19 Glucose (Fingerstick) 247 mg/dL (70-99) 195 mg/dL (70-99) Sodium Level 141 mmol/L (136-145) Potassium Level 4.4 mmol/L (3.5-5.1) Chloride Level 110 mmol/L (98-107) Carbon Dioxide Level 22 mmol/L (21-32) Anion Gap 9 (6-14) Blood Urea Nitrogen 23 mg/dL (8-26) Creatinine 1.4 mg/dL (0.7-1.3) Estimated GFR (Cockcroft-Gault) 47.8 Glucose Level 236 mg/dL (70-99) Calcium Level 8.6 mg/dL (8.5-10.1) Laboratory Tests Test 12/27/20 11:34 12/27/20 14:50 12/27/20 16:46 12/27/20 21:17 Glucose (Fingerstick) 135 mg/dL (70-99) 140 mg/dL (70-99) 247 mg/dL (70-99) SARS-CoV-2 RNA (MARCUS) Negative (Negative) SARS-CoV-2 Antigen (Rapid) Negative (NEGATIVE) Test 12/28/20 03:30 12/28/20 07:19 Sodium Level 141 mmol/L (136-145) Potassium Level 4.4 mmol/L (3.5-5.1) Chloride Level 110 mmol/L (98-107) Carbon Dioxide Level 22 mmol/L (21-32) Anion Gap 9 (6-14) Blood Urea Nitrogen 23 mg/dL (8-26) Creatinine 1.4 mg/dL (0.7-1.3) Estimated GFR (Cockcroft-Gault) 47.8 Glucose Level 236 mg/dL (70-99) Calcium Level 8.6 mg/dL (8.5-10.1) Glucose (Fingerstick) 195 mg/dL (70-99) Medications Active Scripts Medications Dose Route/Sig Max Daily Dose Days Date Category Meclizine Hcl 12.5 Mg Tablet 1 Tab PO TID 11/30/14 Reported Aspir 81 (Aspirin) 81 Mg Tablet.dr 1 Tab PO DAILY 11/30/14 Reported Glimepiride 1 Mg Tablet 1 Tab PO DAILY 11/30/14 Reported Metformin Hcl 500 Mg Tablet 1 Tab PO BID 11/30/14 Reported Nitrostat (Nitroglycerin) 0.4 Mg Tab.subl 1 Tab SL UD 11/30/14 Reported Zocor (Simvastatin) 10 Mg Tablet 1 Tab PO QHS 11/30/14 Reported Lipitor (Atorvastatin Calcium) 10 Mg Tablet 1 Tab PO QHS 11/30/14 Reported Plavix (Clopidogrel Bisulfate) 75 Mg Tablet 1 Tab PO DAILY 11/30/14 Reported Toprol Xl (Metoprolol Succinate) 25 Mg Tab.er.24h 1 Tab PO DAILY 11/30/14 Reported Impression . IMPRESSION: 1. Persistent paroxysmal cough, multifactorial, suspect secondary to nonspecific acute bronchitis and reflux. 2. Acute exacerbation of chronic obstructive pulmonary disease. 3. Tobacco dependence, in remission. 4. Chronic obstructive pulmonary disease, unknown FEV1. 5. Hypertension. 6. Type 2 diabetes. Plan . PLAN: Continue steroids Supplemental oxygen if needed, remains on room air Add protonix Consider DC beta-parish if ongoing wheezing Follow nephrology recs HOB 30 degrees with meals and no eating close to bedtime DVT/GI PPX D/W RN and PT Possible discharge in 24 hours MARLEN SCHULZ MD Dec 28, 2020 08:35
[2020-12-28] MEDS ORDERED: methylPREDNISolone SOD SUCC PF 125 MG/2 ML VIAL. IV SCH (09:00)
[2020-12-28] MEDS: ASPIRIN ENTERIC COATED 81 MG TABLET.DR. PO SCH (09:51)
[2020-12-28] MEDS: CLOPIDOGREL BISULFATE 75 MG TABLET PO SCH (09:51)
[2020-12-28] MEDS: PANTOPRAZOLE 40 MG TABLET.DR. PO SCH (09:52)
[2020-12-28] MEDS: MECLIZINE HCL 12.5 MG TABLET. PO SCH ×3 (09:52→21:30)
[2020-12-28] MEDS: METOPROLOL SUCC 24HR ER 25 MG TAB.ER.24H. PO SCH (09:52)
--- NOTE | 2020-12-28 09:55 | PDOC ---
[facility] PROGRESS NOTE Date of Service DOS: DATE: 12/28/20 TIME: 09:55 Chief Complaint Chief Complaint Acute respiratory distress Atypical pneumonia, possible viral etiology ESTEFANY due to vasomotor nephropathy Lactic acidemia History of CAD with multiple stents History of hypertension History of dyslipidemia History of diabetes mellitus type 2 History of Present Illness History of Present Illness 12/28/2020 Patient seen and examined Discussed with RN Discussed with case management Chart reviewed Patient is still coughing a lot this morning Complains of productive sputum Also has a headache Currently on normal saline at 100 cc an hour 12/27/2020 Patient seen and examined Chart reviewed Discussed with RN Discussed with case management Currently getting normal saline at 100 cc an hour He ate breakfast Creatinine is down from 1.8-1.3 Vitals/I&O Vitals/I&O: Vital Signs Date Time Temp Pulse Resp B/P (MAP) Pulse Ox O2 Delivery O2 Flow Rate FiO2 12/28/20 07:00 98.0 61 20 131/53 (79) 97 Room Air 98.0 I & O 12/27/20 12/27/20 12/28/20 15:00 23:00 07:00 Intake Total 320 ml 320 ml 120 ml Output Total 925 ml 350 ml 450 ml Balance -605 ml -30 ml -330 ml Physical Exam General: Alert, Oriented X3 Heart: Regular rate Lungs: Crackles, Other (Coughing a lot) Abdomen: Normal bowel sounds Extremities: No clubbing Skin: No rashes Labs Labs: Laboratory Tests Test 12/27/20 11:34 12/27/20 14:50 12/27/20 16:46 12/27/20 21:17 Glucose (Fingerstick) 135 mg/dL (70-99) 140 mg/dL (70-99) 247 mg/dL (70-99) SARS-CoV-2 RNA (MARCUS) Negative (Negative) SARS-CoV-2 Antigen (Rapid) Negative (NEGATIVE) Test 12/28/20 03:30 12/28/20 07:19 Sodium Level 141 mmol/L (136-145) Potassium Level 4.4 mmol/L (3.5-5.1) Chloride Level 110 mmol/L (98-107) Carbon Dioxide Level 22 mmol/L (21-32) Anion Gap 9 (6-14) Blood Urea Nitrogen 23 mg/dL (8-26) Creatinine 1.4 mg/dL (0.7-1.3) Estimated GFR (Cockcroft-Gault) 47.8 Glucose Level 236 mg/dL (70-99) Calcium Level 8.6 mg/dL (8.5-10.1) Glucose (Fingerstick) 195 mg/dL (70-99) Assessment and Plan Assessmemt and Plan Problems Medical Problems: (1) Acute kidney injury Status: Acute (2) Shortness of breath Status: Acute Acute respiratory distress with bronchitis and COPD Atypical pneumonia, possible viral etiology ESTEFANY due to vasomotor nephropathy Lactic acidemia History of CAD with multiple stents History of hypertension History of dyslipidemia History of diabetes mellitus type 2 Plan IV fluids Trend creatinine Home meds DVT prophylaxis Full code Appreciate pulmonary and nephrology input PT OT Might need snf? Supportive care GI prophylaxis Advance diet (no food close to bedtime) Encourage p.o. intake Continue proton pump inhibitors Pulmonary considering discontinuing the beta-blockade and I agree Long-term prognosis guarded Comment Review of Relevant I have reviewed the following items rohini (where applicable) has been applied. Medications: Current Medications Medications (Trade) Dose Ordered Sig/Garrett Route PRN Reason Start Time Stop Time Status Last Admin Dose Admin Methylprednisolone Sodium Succinate (SOLU-Medrol 125MG VIAL) 125 mg 1X ONCE IV 12/27/20 15:30 12/27/20 15:34 DC 12/27/20 16:02 Justifications for Admission Other Justification ESTEFANY RAGHAVENDRA BLAKE III DO Dec 28, 2020 09:55
[2020-12-28] MEDS: INSULIN LISPRO 300 UNITS/3 ML VIAL. SQ SCH ×3 (09:57→18:20)
--- NOTE | 2020-12-28 10:07 | PDOC ---
DATE OF SERVICE DATE: 12/28/20 TIME: 10:04 SUBJECTIVE ROS C/O Cough with large amts of phlegm No N/V. No Diarrhea OBJECTIVE Vital Signs Vital Signs Date Time Temp Pulse Resp B/P (MAP) Pulse Ox O2 Delivery O2 Flow Rate FiO2 12/28/20 09:52 61 131/53 12/28/20 07:00 98.0 20 97 Room Air 98.0 I & 0 Intake and Output 12/28/20 07:03 Intake Total 760 ml Output Total 1725 ml Balance -965 ml Intake Oral 760 ml Output Urine Total 1725 ml # Voids 2 PHYSICAL EXAM Physical Exam GEN: No apparent distress. HEENT: Normal cephalic, atraumatic, OM moist NECK: Supple, no JVD, LUNGS: Clear to auscultation, Non labored HEART: RRR, S!, S2 present ABDOMEN: Soft, nontender. Positive bowel sounds, no organomegaly EXTREMITIES: Without clubbing, cyanosis, or edema. NEUROLOGIC: Grossly no obvious focal deficits PSYCHIATRIC: Normal affect, normal mood. Stable SKIN: No ulcerations or rashes, good skin turgor, no jaundice No CVA or SP tenderness, No Rodriguez DIAGNOSIS/ASSESSMENT Assessment & Plan ESTEFANY - Vasomotor /ATN , Cr elevated ,UA protein +, No micr hematuria , Check Renal US Supportive care, maintain hydration, avoid nephrotoxins, I/O Acute respiratory distress- per primary, CxR unremarkable at presentation . C/O Cough , ordered Cxr , Pulm following he is getting IVF( ordered 12/26 - intake not charted) , Recommend DC IV if he has been getting it since 12/26 Atypical pneumonia, possible viral etiology Dx per Primary Mildly Low WBC and Hgb -monitor, defer to primary Hx of CAD with multiple stents Hypertension- antihypertensives Diabetes mellitus type 2 COMMENT/RELEVANT DATA Meds Current Medications Medications (Trade) Dose Ordered Sig/Garrett Start Time Stop Time Status Last Admin Dose Admin Acetaminophen (Tylenol) 650 mg PRN Q4HRS PRN 12/26/20 19:15 Albuterol Sulfate (Ventolin Neb Soln) 2.5 mg 1X ONCE 12/26/20 15:15 12/26/20 15:16 DC 12/26/20 15:44 2.5 MG Aspirin (Ecotrin) 81 mg DAILY 12/27/20 09:00 12/28/20 09:51 81 MG Atorvastatin Calcium (Lipitor) 10 mg QHS 12/26/20 21:00 12/27/20 20:46 10 MG Clopidogrel Bisulfate (Plavix) 75 mg DAILY 12/27/20 09:00 12/28/20 09:51 75 MG Dextrose (Dextrose 50%-Water Syringe) 12.5 gm PRN Q15MIN PRN 12/26/20 19:15 Docusate Sodium (Colace) 100 mg PRN DAILY PRN 12/26/20 19:15 Insulin Human Lispro (HumaLOG) 0-7 UNITS TIDWMEALS 12/27/20 08:00 12/28/20 09:57 3 UNITS Meclizine HCl (Antivert) 12.5 mg TID 12/26/20 21:00 12/28/20 09:52 12.5 MG Methylprednisolone Sodium Succinate (SOLU-Medrol 125MG VIAL) 125 mg DAILY 12/28/20 09:00 12/28/20 09:51 125 MG Metoprolol Succinate (Toprol Xl) 25 mg DAILY 12/27/20 09:00 12/28/20 09:52 25 MG Morphine Sulfate (Morphine Sulfate) 2 mg PRN Q2HR PRN 12/26/20 19:15 12/27/20 19:14 DC Ondansetron HCl (Zofran) 4 mg PRN Q6HRS PRN 12/26/20 19:15 Pantoprazole Sodium (Protonix) 40 mg DAILYAC 12/28/20 07:30 12/28/20 09:52 40 MG Sennosides (Senna) 17.2 mg PRN BID PRN 12/26/20 19:15 Sodium Chloride 1,000 ml @ 125 mls/hr 1X ONCE 12/26/20 20:30 12/27/20 04:29 DC 12/26/20 21:11 125 MLS/HR Lab Laboratory Tests Test 12/27/20 11:34 12/27/20 14:50 12/27/20 16:46 12/27/20 21:17 Glucose (Fingerstick) 135 mg/dL (70-99) 140 mg/dL (70-99) 247 mg/dL (70-99) SARS-CoV-2 RNA (MARCUS) Negative (Negative) SARS-CoV-2 Antigen (Rapid) Negative (NEGATIVE) Test 12/28/20 03:30 12/28/20 07:19 Sodium Level 141 mmol/L (136-145) Potassium Level 4.4 mmol/L (3.5-5.1) Chloride Level 110 mmol/L (98-107) Carbon Dioxide Level 22 mmol/L (21-32) Anion Gap 9 (6-14) Blood Urea Nitrogen 23 mg/dL (8-26) Creatinine 1.4 mg/dL (0.7-1.3) Estimated GFR (Cockcroft-Gault) 47.8 Glucose Level 236 mg/dL (70-99) Calcium Level 8.6 mg/dL (8.5-10.1) Glucose (Fingerstick) 195 mg/dL (70-99) Results All relevant outside records, renal labs, imaging studies, telemetry/EKG's were reviewed. Justicifation of Admission Dx: Justifications for Admission: Justification of Admission Dx: N/A AIMEE GARCIA MD Dec 28, 2020 10:07
[2020-12-28 11:00] VITALS: BP 152/56
--- NOTE | 2020-12-28 11:39 | NUR ---
SW following. Discussed with RN, pt from home alone, room air, ada diet, COVID-19 negative. Therapy recommending home. RN advised pt is not ready for discharge, but no SW needs at this time. SW will continue to follow.
--- NOTE | 2020-12-28 13:16 | RAD ---
US RENAL BILAT: 12/28/2020 10:36 AM Indication: 89 years old Male. Acute kidney injury. Comparison: None. FINDINGS: Sonographic evaluation of the kidneys is performed utilizing grayscale and color Doppler. Right kidney: Size: 10.5 x 5.2 x 5.5cm. Collecting System: No hydronephrosis. No renal calculi detected. Parenchyma: Normal echotexture and morphology. No focal contour deforming renal mass. Left kidney: Size: 10.0 x 5.5 x 4.4cm. Collecting System: No hydronephrosis. No renal calculi detected. Parenchyma: Normal echotexture and morphology. No focal contour deforming renal mass. Urinary bladder: Prevoid bladder volume 97.1 cc. Bilateral urine jets visualized. IMPRESSION: No sonographic findings to suggest obstructive uropathy. Electronically signed by: Manda Waters MD (12/28/2020 1:13 PM) [id number]
--- NOTE | 2020-12-28 14:51 | RAD ---
XR CHEST 1V History: Reason: Cough / Spl. Instructions: / History: Comparison: December 26, 2020 Findings: No consolidation or pleural effusion. Normal heart size. No pneumothorax. Impression: 1. No acute cardiopulmonary process. Electronically signed by: Chip Mobley DO (12/28/2020 2:49 PM) [facility]
[2020-12-28 15:00] VITALS: BP 129/72
[2020-12-28 19:00] VITALS: BP 158/92
[2020-12-28] MEDS: ATORVASTATIN CALCIUM 10 MG TABLET. PO SCH (21:29)
[2020-12-28 23:00] VITALS: BP 168/96
[2020-12-29 01:05] LABS: CREATININE,RANDOM URINE 56.4 mg/dL (Not Establ.)
[2020-12-29 03:00] VITALS: BP 140/59
[2020-12-29 04:35] LABS: CALCIUM 8.9 mg/dL (8.5-10.1); CREATININE 1.4 mg/dL (0.7-1.3); GFR 47.8; POTASSIUM 3.9 mmol/L (3.5-5.1)
[2020-12-29 07:00] VITALS: BP 141/57
[2020-12-29] MEDS: IV NORMAL SALINE 1000ML BAG 1,000 ML IV SCH (07:15)
--- NOTE | 2020-12-29 07:59 | PDOC ---
PULMONARY PROGRESS NOTES DATE: 12/29/20 TIME: 07:53 Subjective on ra has more cough has clear sputum has post nasal drip has sob w coughing Vitals Vital Signs Date Time Temp Pulse Resp B/P (MAP) Pulse Ox O2 Delivery O2 Flow Rate FiO2 12/29/20 07:00 97.8 72 20 141/57 (85) 94 Room Air 97.8 ROS: No Nausea, No Abdominal Pain General: Alert Lungs: Wheezing, Crackles, Other (Coughing a lot) Cardiovascular: S1, S2 Abdomen: Soft Neuro Exam: Alert Extremities: No Edema Skin: Warm Labs Laboratory Tests Test 12/27/20 11:34 12/27/20 14:50 12/27/20 16:46 12/27/20 21:17 Glucose (Fingerstick) 135 mg/dL (70-99) 140 mg/dL (70-99) 247 mg/dL (70-99) SARS-CoV-2 RNA (MARCUS) Negative (Negative) SARS-CoV-2 Antigen (Rapid) Negative (NEGATIVE) Test 12/28/20 03:30 12/28/20 07:19 12/28/20 11:44 12/28/20 16:49 Sodium Level 141 mmol/L (136-145) Potassium Level 4.4 mmol/L (3.5-5.1) Chloride Level 110 mmol/L (98-107) Carbon Dioxide Level 22 mmol/L (21-32) Anion Gap 9 (6-14) Blood Urea Nitrogen 23 mg/dL (8-26) Creatinine 1.4 mg/dL (0.7-1.3) Estimated GFR (Cockcroft-Gault) 47.8 Glucose Level 236 mg/dL (70-99) Calcium Level 8.6 mg/dL (8.5-10.1) Glucose (Fingerstick) 195 mg/dL (70-99) 199 mg/dL (70-99) 276 mg/dL (70-99) Test 12/29/20 00:24 12/29/20 03:05 12/29/20 07:15 Urine Random Creatinine 56.4 mg/dL (Not Establ.) Urine Random Total Protein 15.8 mg/dL (Not Establ.) Urine Protein/Creatinine Ratio 280 mg/g (0-200) Sodium Level 143 mmol/L (136-145) Potassium Level 3.9 mmol/L (3.5-5.1) Chloride Level 109 mmol/L (98-107) Carbon Dioxide Level 26 mmol/L (21-32) Anion Gap 8 (6-14) Blood Urea Nitrogen 25 mg/dL (8-26) Creatinine 1.4 mg/dL (0.7-1.3) Estimated GFR (Cockcroft-Gault) 47.8 Glucose Level 188 mg/dL (70-99) Calcium Level 8.9 mg/dL (8.5-10.1) Glucose (Fingerstick) 144 mg/dL (70-99) Laboratory Tests Test 12/28/20 11:44 12/28/20 16:49 12/29/20 00:24 12/29/20 03:05 Glucose (Fingerstick) 199 mg/dL (70-99) 276 mg/dL (70-99) Urine Random Creatinine 56.4 mg/dL (Not Establ.) Urine Random Total Protein 15.8 mg/dL (Not Establ.) Urine Protein/Creatinine Ratio 280 mg/g (0-200) Sodium Level 143 mmol/L (136-145) Potassium Level 3.9 mmol/L (3.5-5.1) Chloride Level 109 mmol/L (98-107) Carbon Dioxide Level 26 mmol/L (21-32) Anion Gap 8 (6-14) Blood Urea Nitrogen 25 mg/dL (8-26) Creatinine 1.4 mg/dL (0.7-1.3) Estimated GFR (Cockcroft-Gault) 47.8 Glucose Level 188 mg/dL (70-99) Calcium Level 8.9 mg/dL (8.5-10.1) Test 12/29/20 07:15 Glucose (Fingerstick) 144 mg/dL (70-99) Medications Active Scripts Medications Dose Route/Sig Max Daily Dose Days Date Category Meclizine Hcl 12.5 Mg Tablet 1 Tab PO TID 11/30/14 Reported Aspir 81 (Aspirin) 81 Mg Tablet.dr 1 Tab PO DAILY 11/30/14 Reported Glimepiride 1 Mg Tablet 1 Tab PO DAILY 11/30/14 Reported Metformin Hcl 500 Mg Tablet 1 Tab PO BID 11/30/14 Reported Nitrostat (Nitroglycerin) 0.4 Mg Tab.subl 1 Tab SL UD 11/30/14 Reported Zocor (Simvastatin) 10 Mg Tablet 1 Tab PO QHS 11/30/14 Reported Lipitor (Atorvastatin Calcium) 10 Mg Tablet 1 Tab PO QHS 11/30/14 Reported Plavix (Clopidogrel Bisulfate) 75 Mg Tablet 1 Tab PO DAILY 11/30/14 Reported Toprol Xl (Metoprolol Succinate) 25 Mg Tab.er.24h 1 Tab PO DAILY 11/30/14 Reported Comments cxr reviewed no infilt Impression . IMPRESSION: 1. Persistent paroxysmal cough, multifactorial, suspect secondary to nonspecific acute bronchitis and reflux. 2. Acute exacerbation of chronic obstructive pulmonary disease. 3. Tobacco dependence, in remission. 4. Chronic obstructive pulmonary disease, unknown FEV1. 5. Hypertension. 6. Type 2 diabetes. Plan . PLAN: Consider DC beta-parish if ongoing wheezing per primary change solumedrol to 80 bid 02 titration add flonase protonix Follow nephrology recs HOB 30 degrees with meals and no eating close to bedtime DVT/GI PPX D/W RN and PT n SCOTT COULTER MD Dec 29, 2020 07:59
[2020-12-29] MEDS: INSULIN LISPRO 300 UNITS/3 ML VIAL. SQ SCH ×4 (08:00→21:25)
[2020-12-29] MEDS: BUDESONIDE 0.5 MG/2 ML NEBU. NEB SCH ×2 (08:40→19:50)
[2020-12-29] MEDS: IPRATRPIUM/ALBUTEROL 0.5/2.5MG 3 ML NEBU. NEB SCH ×4 (08:40→19:50)
[2020-12-29] MEDS: ASPIRIN ENTERIC COATED 81 MG TABLET.DR. PO SCH (09:23)
[2020-12-29] MEDS: methylPREDNISolone SOD SUCC PF 125 MG/2 ML VIAL. IV SCH ×2 (09:23→17:08)
[2020-12-29] MEDS: guaiFENesin/CODEINE 100mg/10mg 5 ML LIQUID PO PRN (09:23)
[2020-12-29] MEDS: METOPROLOL SUCC 24HR ER 25 MG TAB.ER.24H. PO SCH (09:24)
[2020-12-29] MEDS: PANTOPRAZOLE 40 MG TABLET.DR. PO SCH (09:24)
[2020-12-29] MEDS: CLOPIDOGREL BISULFATE 75 MG TABLET PO SCH (09:24)
[2020-12-29] MEDS: FLUTICASONE 50MCG/NASAL SPRAY 16GM BOTTLE. NS SCH (09:24)
[2020-12-29] MEDS: MECLIZINE HCL 12.5 MG TABLET. PO SCH ×3 (09:24→21:11)
--- NOTE | 2020-12-29 10:49 | PDOC ---
[employer] PROGRESS NOTE Date of Service DOS: DATE: 12/29/20 TIME: 10:48 Chief Complaint Chief Complaint Acute respiratory distress Atypical pneumonia, possible viral etiology ESTEFANY due to vasomotor nephropathy Lactic acidemia History of CAD with multiple stents History of hypertension History of dyslipidemia History of diabetes mellitus type 2 History of Present Illness History of Present Illness 12/29/2020 Patient seen and examined He is resting with no apparent distress Discussed with RN Chart reviewed His creatinine seems to have plateaued at 1.4 for the past few days so we are holding his IV fluids for now and encouraging p.o. intake 12/28/2020 Patient seen and examined Discussed with RN Discussed with case management Chart reviewed Patient is still coughing a lot this morning Complains of productive sputum Also has a headache Currently on normal saline at 100 cc an hour 12/27/2020 Patient seen and examined Chart reviewed Discussed with RN Discussed with case management Currently getting normal saline at 100 cc an hour He ate breakfast Creatinine is down from 1.8-1.3 Vitals/I&O Vitals/I&O: Vital Signs Date Time Temp Pulse Resp B/P (MAP) Pulse Ox O2 Delivery O2 Flow Rate FiO2 12/29/20 09:24 72 141/57 12/29/20 08:44 96 Room Air 12/29/20 07:00 97.8 20 97.8 I & O 12/28/20 12/28/20 12/29/20 15:00 23:00 07:00 Intake Total 120 ml Output Total 250 ml 300 ml Balance -250 ml -180 ml Physical Exam General: No acute distress Heart: Regular rate Lungs: Wheezing, Crackles, Other (Coughing a lot) Abdomen: Normal bowel sounds Extremities: No clubbing Skin: No rashes Labs Labs: Laboratory Tests Test 12/28/20 11:44 12/28/20 16:49 12/29/20 00:24 12/29/20 03:05 Glucose (Fingerstick) 199 mg/dL (70-99) 276 mg/dL (70-99) Urine Random Creatinine 56.4 mg/dL (Not Establ.) Urine Random Total Protein 15.8 mg/dL (Not Establ.) Urine Protein/Creatinine Ratio 280 mg/g (0-200) Sodium Level 143 mmol/L (136-145) Potassium Level 3.9 mmol/L (3.5-5.1) Chloride Level 109 mmol/L (98-107) Carbon Dioxide Level 26 mmol/L (21-32) Anion Gap 8 (6-14) Blood Urea Nitrogen 25 mg/dL (8-26) Creatinine 1.4 mg/dL (0.7-1.3) Estimated GFR (Cockcroft-Gault) 47.8 Glucose Level 188 mg/dL (70-99) Calcium Level 8.9 mg/dL (8.5-10.1) Test 12/29/20 07:15 Glucose (Fingerstick) 144 mg/dL (70-99) Assessment and Plan Assessmemt and Plan Problems Medical Problems: (1) Acute kidney injury Status: Acute (2) Shortness of breath Status: Acute Acute respiratory distress with bronchitis and COPD Atypical pneumonia, possible viral etiology ESTEFANY due to vasomotor nephropathy Lactic acidemia History of CAD with multiple stents History of hypertension History of dyslipidemia History of diabetes mellitus type 2 Plan Hold IV fluids and encourage p.o. intake Trend creatinine Home meds DVT prophylaxis Full code Appreciate pulmonary and nephrology input PT OT Might need long-term? Supportive care GI prophylaxis Continue proton pump inhibitors Pulmonary considering discontinuing the beta-blockade and I agree Long-term prognosis guarded Comment Review of Relevant I have reviewed the following items rohini (where applicable) has been applied. Medications: Current Medications Medications (Trade) Dose Ordered Sig/Garrett Route PRN Reason Start Time Stop Time Status Last Admin Dose Admin Methylprednisolone Sodium Succinate (SOLU-Medrol 125MG VIAL) 80 mg [id number] IV 12/29/20 09:00 12/29/20 09:23 Fluticasone Propionate (Flonase) 2 spray DAILY NS 12/29/20 09:00 12/29/20 09:24 Albuterol/ Ipratropium (Duoneb) 3 ml RTQID NEB 12/29/20 08:00 12/29/20 08:40 Budesonide (Pulmicort) 0.5 mg RTBID NEB 12/29/20 08:00 12/29/20 08:40 Guaifenesin/ Codeine Phosphate (Robitussin Ac) 5 ml PRN Q6HRS PRN PO COUGH 12/29/20 08:45 12/29/20 09:23 Justifications for Admission Other Justification ESTEFANY RAGHAVENDRA BLAKE III DO Dec 29, 2020 10:49
[2020-12-29 11:00] VITALS: BP 123/69
--- NOTE | 2020-12-29 11:40 | PDOC ---
PROGRESS NOTES Date of Service DATE: 12/29/20 TIME: 11:39 Subjective Subjective SEEN IN FOLLOW UP OF ARF Objective Objective Vital Signs Date Time Temp Pulse Resp B/P (MAP) Pulse Ox O2 Delivery O2 Flow Rate FiO2 12/29/20 11:00 97.8 82 18 123/69 (87) 100 Room Air 97.8 Intake and Output 12/29/20 07:00 Intake Total 120 ml Output Total 550 ml Balance -430 ml Intake Oral 120 ml Output Urine Total 550 ml # Voids 1 Physical Exam Heart: Regular rate, Normal S1, Normal S2, No murmurs, Gallops Extremities: No clubbing, No cyanosis, No edema, Normal pulses, No tenderness/swelling General: Alert, Oriented X3, Cooperative, No acute distress Lungs: Clear to auscultation, Normal air movement Psych/Mental Status: Mental status NL, Mood NL Diagnosis RENAL FAILURE: Acute (Acute tubular necrosis) Assessment Assessment Problems Medical Problems: (1) Acute kidney injury Status: Acute (2) Shortness of breath Status: Acute Plan Plan of Care RENAL FUNCTION IS STABLE. CONT FLUID BALANCE AND TREND LAB Comment Review of Relevant I have reviewed the following items rohini (where applicable) has been applied. Labs Laboratory Tests Test 12/27/20 14:50 12/27/20 16:46 12/27/20 21:17 12/28/20 03:30 SARS-CoV-2 RNA (MARCUS) Negative (Negative) SARS-CoV-2 Antigen (Rapid) Negative (NEGATIVE) Glucose (Fingerstick) 140 mg/dL (70-99) 247 mg/dL (70-99) Sodium Level 141 mmol/L (136-145) Potassium Level 4.4 mmol/L (3.5-5.1) Chloride Level 110 mmol/L (98-107) Carbon Dioxide Level 22 mmol/L (21-32) Anion Gap 9 (6-14) Blood Urea Nitrogen 23 mg/dL (8-26) Creatinine 1.4 mg/dL (0.7-1.3) Estimated GFR (Cockcroft-Gault) 47.8 Glucose Level 236 mg/dL (70-99) Calcium Level 8.6 mg/dL (8.5-10.1) Test 12/28/20 07:19 12/28/20 11:44 12/28/20 16:49 12/29/20 00:24 Glucose (Fingerstick) 195 mg/dL (70-99) 199 mg/dL (70-99) 276 mg/dL (70-99) Urine Random Creatinine 56.4 mg/dL (Not Establ.) Urine Random Total Protein 15.8 mg/dL (Not Establ.) Urine Protein/Creatinine Ratio 280 mg/g (0-200) Test 12/29/20 03:05 12/29/20 07:15 12/29/20 10:48 Sodium Level 143 mmol/L (136-145) Potassium Level 3.9 mmol/L (3.5-5.1) Chloride Level 109 mmol/L (98-107) Carbon Dioxide Level 26 mmol/L (21-32) Anion Gap 8 (6-14) Blood Urea Nitrogen 25 mg/dL (8-26) Creatinine 1.4 mg/dL (0.7-1.3) Estimated GFR (Cockcroft-Gault) 47.8 Glucose Level 188 mg/dL (70-99) Calcium Level 8.9 mg/dL (8.5-10.1) Glucose (Fingerstick) 144 mg/dL (70-99) 237 mg/dL (70-99) Laboratory Tests Test 12/28/20 11:44 12/28/20 16:49 12/29/20 00:24 12/29/20 03:05 Glucose (Fingerstick) 199 mg/dL (70-99) 276 mg/dL (70-99) Urine Random Creatinine 56.4 mg/dL (Not Establ.) Urine Random Total Protein 15.8 mg/dL (Not Establ.) Urine Protein/Creatinine Ratio 280 mg/g (0-200) Sodium Level 143 mmol/L (136-145) Potassium Level 3.9 mmol/L (3.5-5.1) Chloride Level 109 mmol/L (98-107) Carbon Dioxide Level 26 mmol/L (21-32) Anion Gap 8 (6-14) Blood Urea Nitrogen 25 mg/dL (8-26) Creatinine 1.4 mg/dL (0.7-1.3) Estimated GFR (Cockcroft-Gault) 47.8 Glucose Level 188 mg/dL (70-99) Calcium Level 8.9 mg/dL (8.5-10.1) Test 12/29/20 07:15 12/29/20 10:48 Glucose (Fingerstick) 144 mg/dL (70-99) 237 mg/dL (70-99) Microbiology 12/26/20 Blood Culture - Preliminary, Resulted NO GROWTH AFTER 2 DAYS Medications Current Medications Methylprednisolone Sodium Succinate (SOLU-Medrol 125MG VIAL) 125 mg 1X ONCE IV Last administered on 12/26/20at 15:28; Start 12/26/20 at 15:15; Stop 12/26/20 at 15:16; Status DC Albuterol Sulfate (Ventolin Neb Soln) 2.5 mg 1X ONCE NEB Last administered on 12/26/20at 15:44; Start 12/26/20 at 15:15; Stop 12/26/20 at 15:16; Status DC Sodium Chloride 1,000 ml @ 1,000 mls/hr 1X ONCE IV Last administered on 12/26/20at 16:24; Start 12/26/20 at 16:00; Stop 12/26/20 at 16:59; Status DC Insulin Human Lispro (HumaLOG) 0-7 UNITS TIDWMEALS SQ Last administered on 12/28/20at 18:20; Start 12/27/20 at 08:00 Dextrose (Dextrose 50%-Water Syringe) 12.5 gm PRN Q15MIN PRN IV SEE COMMENTS; Start 12/26/20 at 19:15; Status Cancel Sennosides (Senna) 17.2 mg PRN BID PRN PO CONSTIPATION; Start 12/26/20 at 19:15 Docusate Sodium (Colace) 100 mg PRN DAILY PRN PO HARD STOOLS; Start 12/26/20 at 19:15 Ondansetron HCl (Zofran) 4 mg PRN Q6HRS PRN IVP NAUSEA/VOMITING; Start 12/26/20 at 19:15 Dextrose (Dextrose 50%-Water Syringe) 12.5 gm PRN Q15MIN PRN IV SEE COMMENTS; Start 12/26/20 at 19:15 Sodium Chloride 1,000 ml @ 100 mls/hr Q10H IV Last administered on 12/28/20at 02:21; Start 12/26/20 at 19:15 Acetaminophen (Tylenol) 650 mg PRN Q4HRS PRN PO TEMP OVER 100.4F OR MILD PAIN; Start 12/26/20 at 19:15 Morphine Sulfate (Morphine Sulfate) 1 mg PRN Q1HR PRN IV PAIN; Start 12/26/20 at 19:15 Morphine Sulfate (Morphine Sulfate) 2 mg PRN Q2HR PRN IVP SEVERE PAIN 7-10; Start 12/26/20 at 19:15; Stop 12/27/20 at 19:14; Status DC Aspirin (Ecotrin) 81 mg DAILY PO Last administered on 12/29/20 09:23; Start 12/27/20 at 09:00 Atorvastatin Calcium (Lipitor) 10 mg QHS PO Last administered on 12/28/20at 21:29; Start 12/26/20 at 21:00 Clopidogrel Bisulfate (Plavix) 75 mg DAILY PO Last administered on 12/29/20 09:24; Start 12/27/20 at 09:00 Meclizine HCl (Antivert) 12.5 mg TID PO Last administered on 12/29/20 09:24; Start 12/26/20 at 21:00 Metoprolol Succinate (Toprol Xl) 25 mg DAILY PO Last administered on 12/29/20 09:24; Start 12/27/20 at 09:00 Sodium Chloride 1,000 ml @ 125 mls/hr 1X ONCE IV Last administered on 12/26/20at 21:11; Start 12/26/20 at 20:30; Stop 12/27/20 at 04:29; Status DC Methylprednisolone Sodium Succinate (SOLU-Medrol 125MG VIAL) 125 mg 1X ONCE IV Last administered on 12/27/20at 16:02; Start 12/27/20 at 15:30; Stop 12/27/20 at 15:34; Status DC Methylprednisolone Sodium Succinate (SOLU-Medrol 125MG VIAL) 125 mg DAILY IV Last administered on 12/28/20at 09:51; Start 12/28/20 at 09:00; Stop 12/29/20 at 08:02; Status DC Pantoprazole Sodium (Protonix) 40 mg DAILYAC PO Last administered on 12/29/20 09:24; Start 12/28/20 at 07:30 Methylprednisolone Sodium Succinate (SOLU-Medrol 125MG VIAL) 80 mg BID94 IV Last administered on 12/29/20at 09:23; Start 12/29/20 at 09:00 Fluticasone Propionate (Flonase) 2 spray DAILY NS Last administered on 6/5/21at 09:24; Start 12/29/20 at 09:00 Albuterol/ Ipratropium (Duoneb) 3 ml RTQID NEB Last administered on 12/29/20at 08:40; Start 12/29/20 at 08:00 Budesonide (Pulmicort) 0.5 mg RTBID NEB Last administered on 12/29/20at 08:40; Start 12/29/20 at 08:00 Guaifenesin/ Codeine Phosphate (Robitussin Ac) 5 ml PRN Q6HRS PRN PO COUGH Last administered on 12/29/20at 09:23; Start 12/29/20 at 08:45 Active Scripts Active Reported Meclizine Hcl 12.5 Mg Tablet 1 Tab PO TID Aspir 81 (Aspirin) 81 Mg Tablet.dr 1 Tab PO DAILY Glimepiride 1 Mg Tablet 1 Tab PO DAILY Metformin Hcl 500 Mg Tablet 1 Tab PO BID Nitrostat (Nitroglycerin) 0.4 Mg Tab.subl 1 Tab SL UD Zocor (Simvastatin) 10 Mg Tablet 1 Tab PO QHS Lipitor (Atorvastatin Calcium) 10 Mg Tablet 1 Tab PO QHS Plavix (Clopidogrel Bisulfate) 75 Mg Tablet 1 Tab PO DAILY Toprol Xl (Metoprolol Succinate) 25 Mg Tab.er.24h 1 Tab PO DAILY Vitals/I & O Vital Sign - Last 24 Hours 12/28/20 12/28/20 12/28/20 12/28/20 15:00 19:00 20:05 23:00 Temp 97.6 97.7 97.7 97.6 97.7 97.7 Pulse 74 50 83 Resp 22 16 16 B/P (MAP) 129/72 (91) 158/92 (114) 168/96 (120) Pulse Ox 92 94 94 O2 Delivery Room Air Room Air 12/29/20 12/29/20 12/29/20 12/29/20 03:00 07:00 08:44 08:44 Temp 98.7 97.8 98.7 97.8 Pulse 79 72 Resp 18 20 B/P (MAP) 140/59 (86) 141/57 (85) Pulse Ox 94 94 96 96 O2 Delivery Room Air Room Air Room Air 12/29/20 12/29/20 09:24 11:00 Temp 97.8 97.8 Pulse 72 82 Resp 18 B/P (MAP) 141/57 123/69 (87) Pulse Ox 100 O2 Delivery Room Air Intake and Output 12/28/20 12/28/20 12/29/20 15:00 23:00 07:00 Intake Total 120 ml Output Total 250 ml 300 ml Balance -250 ml -180 ml Justifications for Admission Other Justification JULI ANTHONY MD Dec 29, 2020 11:40
[2020-12-29 15:00] VITALS: BP 130/60
[2020-12-29 19:00] VITALS: BP 132/57
[2020-12-29] MEDS: ATORVASTATIN CALCIUM 10 MG TABLET. PO SCH (21:11)
[2020-12-29 23:00] VITALS: BP 140/60
[2020-12-30 03:00] VITALS: BP 92/36
[2020-12-30 07:00] VITALS: BP 135/69
[2020-12-30] MEDS: BUDESONIDE 0.5 MG/2 ML NEBU. NEB SCH ×2 (07:13→20:44)
[2020-12-30] MEDS: IPRATRPIUM/ALBUTEROL 0.5/2.5MG 3 ML NEBU. NEB SCH ×4 (07:13→20:47)
--- NOTE | 2020-12-30 07:56 | PDOC ---
PULMONARY PROGRESS NOTES DATE: 12/30/20 TIME: 07:54 Subjective on ra cough sob better slept better last night had sore throat last night Vitals Vital Signs Date Time Temp Pulse Resp B/P (MAP) Pulse Ox O2 Delivery O2 Flow Rate FiO2 12/30/20 07:14 96 Room Air 12/30/20 03:00 97.8 77 18 92/36 (54) 97.8 ROS: No Nausea, No Abdominal Pain General: Alert HEENT: Other (nc at perrl throat clear) Lungs: Clear, Other Cardiovascular: S1, S2 Abdomen: Soft Neuro Exam: Alert Extremities: No Edema Skin: Warm Labs Laboratory Tests Test 12/28/20 11:44 12/28/20 16:49 12/29/20 00:24 12/29/20 03:05 Glucose (Fingerstick) 199 mg/dL (70-99) 276 mg/dL (70-99) Urine Random Creatinine 56.4 mg/dL (Not Establ.) Urine Random Total Protein 15.8 mg/dL (Not Establ.) Urine Protein/Creatinine Ratio 280 mg/g (0-200) Sodium Level 143 mmol/L (136-145) Potassium Level 3.9 mmol/L (3.5-5.1) Chloride Level 109 mmol/L (98-107) Carbon Dioxide Level 26 mmol/L (21-32) Anion Gap 8 (6-14) Blood Urea Nitrogen 25 mg/dL (8-26) Creatinine 1.4 mg/dL (0.7-1.3) Estimated GFR (Cockcroft-Gault) 47.8 Glucose Level 188 mg/dL (70-99) Calcium Level 8.9 mg/dL (8.5-10.1) Test 12/29/20 07:15 12/29/20 10:48 12/29/20 17:01 12/29/20 20:22 Glucose (Fingerstick) 144 mg/dL (70-99) 237 mg/dL (70-99) 393 mg/dL (70-99) 335 mg/dL (70-99) Laboratory Tests Test 12/29/20 10:48 12/29/20 17:01 12/29/20 20:22 Glucose (Fingerstick) 237 mg/dL (70-99) 393 mg/dL (70-99) 335 mg/dL (70-99) Medications Active Scripts Medications Dose Route/Sig Max Daily Dose Days Date Category Meclizine Hcl 12.5 Mg Tablet 1 Tab PO TID 11/30/14 Reported Aspir 81 (Aspirin) 81 Mg Tablet.dr 1 Tab PO DAILY 11/30/14 Reported Glimepiride 1 Mg Tablet 1 Tab PO DAILY 11/30/14 Reported Metformin Hcl 500 Mg Tablet 1 Tab PO BID 11/30/14 Reported Nitrostat (Nitroglycerin) 0.4 Mg Tab.subl 1 Tab SL UD 11/30/14 Reported Zocor (Simvastatin) 10 Mg Tablet 1 Tab PO QHS 11/30/14 Reported Lipitor (Atorvastatin Calcium) 10 Mg Tablet 1 Tab PO QHS 11/30/14 Reported Plavix (Clopidogrel Bisulfate) 75 Mg Tablet 1 Tab PO DAILY 11/30/14 Reported Toprol Xl (Metoprolol Succinate) 25 Mg Tab.er.24h 1 Tab PO DAILY 11/30/14 Reported Comments cxr reviewed no infilt Impression . IMPRESSION: 1. Persistent paroxysmal cough, multifactorial, suspect secondary to nonspecific acute bronchitis and reflux. 2. Acute exacerbation of chronic obstructive pulmonary disease. 3. Tobacco dependence, in remission. 4. Chronic obstructive pulmonary disease, unknown FEV1. 5. Hypertension. 6. Type 2 diabetes. Plan . PLAN: cont solumedrol 80 bid 02 titration cont flonase protonix Follow nephrology recs HOB 30 degrees with meals and no eating close to bedtime DVT/GI PPX cont BD and ICS D/W RN and PT SCOTT COULTER MD Dec 30, 2020 07:56
[2020-12-30] MEDS: ASPIRIN ENTERIC COATED 81 MG TABLET.DR. PO SCH (08:43)
[2020-12-30] MEDS: CLOPIDOGREL BISULFATE 75 MG TABLET PO SCH (08:43)
[2020-12-30] MEDS: MECLIZINE HCL 12.5 MG TABLET. PO SCH ×3 (08:43→20:41)
[2020-12-30] MEDS: METOPROLOL SUCC 24HR ER 25 MG TAB.ER.24H. PO SCH (08:43)
[2020-12-30] MEDS: PANTOPRAZOLE 40 MG TABLET.DR. PO SCH (08:43)
[2020-12-30] MEDS: FLUTICASONE 50MCG/NASAL SPRAY 16GM BOTTLE. NS SCH (08:44)
[2020-12-30] MEDS: methylPREDNISolone SOD SUCC PF 125 MG/2 ML VIAL. IV SCH ×2 (08:45→15:43)
[2020-12-30] MEDS: INSULIN LISPRO 300 UNITS/3 ML VIAL. SQ SCH ×4 (08:53→20:45)
[2020-12-30 11:00] VITALS: BP_SYST 124; BP_SYST 142; BP_DIAS 64; BP_DIAS 73
--- NOTE | 2020-12-30 13:08 | PDOC ---
[employer] PROGRESS NOTE Date of Service DOS: DATE: 12/30/20 TIME: 13:07 Chief Complaint Chief Complaint Acute respiratory distress Atypical pneumonia, possible viral etiology ESTEFANY due to vasomotor nephropathy Lactic acidemia History of CAD with multiple stents History of hypertension History of dyslipidemia History of diabetes mellitus type 2 History of Present Illness History of Present Illness 12/30/2020 Patient seen and examined He is resting with no apparent distress Chart reviewed Discussed with RN 12/29/2020 Patient seen and examined He is resting with no apparent distress Discussed with RN Chart reviewed His creatinine seems to have plateaued at 1.4 for the past few days so we are holding his IV fluids for now and encouraging p.o. intake 12/28/2020 Patient seen and examined Discussed with RN Discussed with case management Chart reviewed Patient is still coughing a lot this morning Complains of productive sputum Also has a headache Currently on normal saline at 100 cc an hour 12/27/2020 Patient seen and examined Chart reviewed Discussed with RN Discussed with case management Currently getting normal saline at 100 cc an hour He ate breakfast Creatinine is down from 1.8-1.3 Vitals/I&O Vitals/I&O: Vital Signs Date Time Temp Pulse Resp B/P (MAP) Pulse Ox O2 Delivery O2 Flow Rate FiO2 12/30/20 11:50 97 Room Air 12/30/20 11:00 98.1 75 17 142/73 (96) 98.1 I & O 12/29/20 12/29/20 12/30/20 15:00 23:00 07:00 Intake Total 240 ml Output Total 1050 ml 1000 ml Balance 240 ml -1050 ml -1000 ml Physical Exam General: No acute distress Heart: Regular rate, Normal S1, Normal S2, No murmurs, Gallops Lungs: Clear, Other Abdomen: Normal bowel sounds Extremities: No clubbing, No cyanosis, No edema, Normal pulses, No tenderness/swelling Skin: No rashes Labs Labs: Laboratory Tests Test 12/29/20 17:01 12/29/20 20:22 12/30/20 07:58 12/30/20 11:47 Glucose (Fingerstick) 393 mg/dL (70-99) 335 mg/dL (70-99) 203 mg/dL (70-99) 227 mg/dL (70-99) Assessment and Plan Assessmemt and Plan Problems Medical Problems: (1) Acute kidney injury Status: Acute (2) Shortness of breath Status: Acute Acute respiratory distress with bronchitis and COPD Atypical pneumonia, possible viral etiology ESTEFANY due to vasomotor nephropathy Lactic acidemia History of CAD with multiple stents History of hypertension History of dyslipidemia History of diabetes mellitus type 2 Plan Hold IV fluids and encourage p.o. intake Trend creatinine Home meds DVT prophylaxis Full code Appreciate pulmonary and nephrology input PT OT Might need fci? Supportive care GI prophylaxis Continue proton pump inhibitors Pulmonary considering discontinuing the beta-blockade and I agree Long-term prognosis guarded Comment Review of Relevant I have reviewed the following items rohini (where applicable) has been applied. Medications: Current Medications Medications (Trade) Dose Ordered Sig/Garrett Route PRN Reason Start Time Stop Time Status Last Admin Dose Admin Insulin Human Lispro (HumaLOG) 0-7 UNITS TIDWMEALHC SQ 12/29/20 21:15 12/30/20 11:59 Justifications for Admission Other Justification ESTEFANY RAGHAVENDRA BLAKE III DO Dec 30, 2020 13:08
[2020-12-30 15:00] VITALS: BP 123/66
[2020-12-30 19:00] VITALS: BP 130/70
[2020-12-30] MEDS: ATORVASTATIN CALCIUM 10 MG TABLET. PO SCH (20:41)
[2020-12-30 22:48] VITALS: BP 131/59
[2020-12-31 02:53] VITALS: BP 137/62
[2020-12-31 04:57] LABS: BASO % 0 % (0-3); EOS % 0 % (0-3); HEMATOCRIT 36.4 % (39.0-53.0); HEMOGLOBIN 12.3 g/dL (13.0-17.5); LYMPH # 0.5 x10^3/uL (1.0-4.8); LYMPH % 5 % (24-48); MEAN CORPUSCULAR HEMOGLOBIN 30 pg (25-35); MEAN CORPUSCULAR HGB CONC 34 g/dL (31-37); MEAN CORPUSCULAR VOLUME 90 fL (79-100); MONO # 0.4 x10^3/uL (0.0-1.1); MONO % 4 % (0-9); NEUT # 8.9 x10^3/uL (1.8-7.7); NEUT % 91 % (31-73); PLATELET COUNT 199 x10^3/uL (140-400); RED BLOOD COUNT 4.07 x10^6/uL (4.30-5.70); RED CELL DISTRIBUTION WIDTH 14.4 % (11.5-14.5); WHITE BLOOD COUNT 9.8 x10^3/uL (4.0-11.0)
[2020-12-31 05:29] LABS: CALCIUM 8.8 mg/dL (8.5-10.1); CREATININE 1.3 mg/dL (0.7-1.3); GFR 52.1; POTASSIUM 3.9 mmol/L (3.5-5.1)
[2020-12-31 05:59] LABS: % LYMPHS 4 % (24-48); % MONOS 3 % (0-10); % SEGS 93 % (35-66); PLT ESTIMATE ADEQUATE (ADEQUATE)
[2020-12-31 07:00] VITALS: BP 139/71
[2020-12-31] MEDS: BUDESONIDE 0.5 MG/2 ML NEBU. NEB SCH ×2 (07:39→19:19)
[2020-12-31] MEDS: IPRATRPIUM/ALBUTEROL 0.5/2.5MG 3 ML NEBU. NEB SCH ×4 (07:39→19:19)
[2020-12-31] MEDS: FLUTICASONE 50MCG/NASAL SPRAY 16GM BOTTLE. NS SCH (08:35)
[2020-12-31] MEDS: guaiFENesin/CODEINE 100mg/10mg 5 ML LIQUID PO PRN ×2 (08:35→17:27)
[2020-12-31] MEDS: MECLIZINE HCL 12.5 MG TABLET. PO SCH ×3 (08:36→21:27)
[2020-12-31] MEDS: methylPREDNISolone SOD SUCC PF 125 MG/2 ML VIAL. IV SCH (08:36)
[2020-12-31] MEDS: PANTOPRAZOLE 40 MG TABLET.DR. PO SCH (08:36)
[2020-12-31] MEDS: ASPIRIN ENTERIC COATED 81 MG TABLET.DR. PO SCH (08:36)
[2020-12-31] MEDS: CLOPIDOGREL BISULFATE 75 MG TABLET PO SCH (08:37)
[2020-12-31] MEDS: METOPROLOL SUCC 24HR ER 25 MG TAB.ER.24H. PO SCH (08:37)
[2020-12-31] MEDS: INSULIN LISPRO 300 UNITS/3 ML VIAL. SQ SCH ×4 (08:42→21:30)
--- NOTE | 2020-12-31 09:51 | PDOC ---
PULMONARY PROGRESS NOTES DATE: 12/31/20 TIME: 09:51 Subjective Pt. remains on room air reprots improvement in cough no SOA no overnight events Vitals Vital Signs Date Time Temp Pulse Resp B/P (MAP) Pulse Ox O2 Delivery O2 Flow Rate FiO2 12/31/20 08:37 70 139/71 12/31/20 07:39 95 Room Air 12/31/20 07:00 97.6 18 97.6 ROS: No Nausea, No Abdominal Pain General: Alert, Oriented X4 Lungs: Clear Cardiovascular: S1, S2 Abdomen: Soft Neuro Exam: Alert Extremities: No Edema Skin: Warm Labs Laboratory Tests Test 12/29/20 10:48 12/29/20 17:01 12/29/20 20:22 12/30/20 07:58 Glucose (Fingerstick) 237 mg/dL (70-99) 393 mg/dL (70-99) 335 mg/dL (70-99) 203 mg/dL (70-99) Test 12/30/20 11:47 12/30/20 16:30 12/30/20 19:07 12/31/20 04:30 Glucose (Fingerstick) 227 mg/dL (70-99) 277 mg/dL (70-99) 336 mg/dL (70-99) White Blood Count 9.8 x10^3/uL (4.0-11.0) Red Blood Count 4.07 x10^6/uL (4.30-5.70) Hemoglobin 12.3 g/dL (13.0-17.5) Hematocrit 36.4 % (39.0-53.0) Mean Corpuscular Volume 90 fL (79-100) Mean Corpuscular Hemoglobin 30 pg (25-35) Mean Corpuscular Hemoglobin Concent 34 g/dL (31-37) Red Cell Distribution Width 14.4 % (11.5-14.5) Platelet Count 199 x10^3/uL (140-400) Neutrophils (%) (Auto) 91 % (31-73) Lymphocytes (%) (Auto) 5 % (24-48) Monocytes (%) (Auto) 4 % (0-9) Eosinophils (%) (Auto) 0 % (0-3) Basophils (%) (Auto) 0 % (0-3) Neutrophils # (Auto) 8.9 x10^3/uL (1.8-7.7) Lymphocytes # (Auto) 0.5 x10^3/uL (1.0-4.8) Monocytes # (Auto) 0.4 x10^3/uL (0.0-1.1) Eosinophils # (Auto) 0.0 x10^3/uL (0.0-0.7) Basophils # (Auto) 0.0 x10^3/uL (0.0-0.2) Segmented Neutrophils % 93 % (35-66) Lymphocytes % 4 % (24-48) Monocytes % 3 % (0-10) Platelet Estimate Adequate (ADEQUATE) Sodium Level 140 mmol/L (136-145) Potassium Level 3.9 mmol/L (3.5-5.1) Chloride Level 106 mmol/L (98-107) Carbon Dioxide Level 22 mmol/L (21-32) Anion Gap 12 (6-14) Blood Urea Nitrogen 28 mg/dL (8-26) Creatinine 1.3 mg/dL (0.7-1.3) Estimated GFR (Cockcroft-Gault) 52.1 Glucose Level 250 mg/dL (70-99) Calcium Level 8.8 mg/dL (8.5-10.1) Test 12/31/20 07:01 Glucose (Fingerstick) 182 mg/dL (70-99) Laboratory Tests Test 12/30/20 11:47 12/30/20 16:30 12/30/20 19:07 12/31/20 04:30 Glucose (Fingerstick) 227 mg/dL (70-99) 277 mg/dL (70-99) 336 mg/dL (70-99) White Blood Count 9.8 x10^3/uL (4.0-11.0) Red Blood Count 4.07 x10^6/uL (4.30-5.70) Hemoglobin 12.3 g/dL (13.0-17.5) Hematocrit 36.4 % (39.0-53.0) Mean Corpuscular Volume 90 fL (79-100) Mean Corpuscular Hemoglobin 30 pg (25-35) Mean Corpuscular Hemoglobin Concent 34 g/dL (31-37) Red Cell Distribution Width 14.4 % (11.5-14.5) Platelet Count 199 x10^3/uL (140-400) Neutrophils (%) (Auto) 91 % (31-73) Lymphocytes (%) (Auto) 5 % (24-48) Monocytes (%) (Auto) 4 % (0-9) Eosinophils (%) (Auto) 0 % (0-3) Basophils (%) (Auto) 0 % (0-3) Neutrophils # (Auto) 8.9 x10^3/uL (1.8-7.7) Lymphocytes # (Auto) 0.5 x10^3/uL (1.0-4.8) Monocytes # (Auto) 0.4 x10^3/uL (0.0-1.1) Eosinophils # (Auto) 0.0 x10^3/uL (0.0-0.7) Basophils # (Auto) 0.0 x10^3/uL (0.0-0.2) Segmented Neutrophils % 93 % (35-66) Lymphocytes % 4 % (24-48) Monocytes % 3 % (0-10) Platelet Estimate Adequate (ADEQUATE) Sodium Level 140 mmol/L (136-145) Potassium Level 3.9 mmol/L (3.5-5.1) Chloride Level 106 mmol/L (98-107) Carbon Dioxide Level 22 mmol/L (21-32) Anion Gap 12 (6-14) Blood Urea Nitrogen 28 mg/dL (8-26) Creatinine 1.3 mg/dL (0.7-1.3) Estimated GFR (Cockcroft-Gault) 52.1 Glucose Level 250 mg/dL (70-99) Calcium Level 8.8 mg/dL (8.5-10.1) Test 12/31/20 07:01 Glucose (Fingerstick) 182 mg/dL (70-99) Medications Active Scripts Medications Dose Route/Sig Max Daily Dose Days Date Category Meclizine Hcl 12.5 Mg Tablet 1 Tab PO TID 11/30/14 Reported Aspir 81 (Aspirin) 81 Mg Tablet.dr 1 Tab PO DAILY 11/30/14 Reported Glimepiride 1 Mg Tablet 1 Tab PO DAILY 11/30/14 Reported Metformin Hcl 500 Mg Tablet 1 Tab PO BID 11/30/14 Reported Nitrostat (Nitroglycerin) 0.4 Mg Tab.subl 1 Tab SL UD 11/30/14 Reported Zocor (Simvastatin) 10 Mg Tablet 1 Tab PO QHS 11/30/14 Reported Lipitor (Atorvastatin Calcium) 10 Mg Tablet 1 Tab PO QHS 11/30/14 Reported Plavix (Clopidogrel Bisulfate) 75 Mg Tablet 1 Tab PO DAILY 11/30/14 Reported Toprol Xl (Metoprolol Succinate) 25 Mg Tab.er.24h 1 Tab PO DAILY 11/30/14 Reported Comments cxr reviewed no infilt Impression . IMPRESSION: 1. Persistent paroxysmal cough, multifactorial, suspect secondary to nonspecific acute bronchitis and reflux. 2. Acute exacerbation of chronic obstructive pulmonary disease. 3. Tobacco dependence, in remission. 4. Chronic obstructive pulmonary disease, unknown FEV1. 5. Hypertension. 6. Type 2 diabetes. Plan . PLAN: Pt. is stable from respiratory standpoint Change IV steroids to po and taper slowly Follow nephrology recs HOB 30 degrees and no eating before bedtime DVT/GI PPX PT/OT Planned to Discharge home with home health ok from our standpoint MARLEN SCHULZ MD Dec 31, 2020 09:51
--- NOTE | 2020-12-31 10:44 | PDOC ---
[employer] PROGRESS NOTE Date of Service DOS: DATE: 12/31/20 TIME: 10:42 Chief Complaint Chief Complaint Acute respiratory distress Atypical pneumonia, possible viral etiology ESTEFANY due to vasomotor nephropathy Lactic acidemia History of CAD with multiple stents History of hypertension History of dyslipidemia History of diabetes mellitus type 2 History of Present Illness History of Present Illness 12/31/2020 Patient seen exam Discussed with RN Chart reviewed Discussed with wrapper caser Patient still coughing a lot and appears weak Ate 100% of his breakfast 12/30/2020 Patient seen and examined He is resting with no apparent distress Chart reviewed Discussed with RN 12/29/2020 Patient seen and examined He is resting with no apparent distress Discussed with RN Chart reviewed His creatinine seems to have plateaued at 1.4 for the past few days so we are holding his IV fluids for now and encouraging p.o. intake 12/28/2020 Patient seen and examined Discussed with RN Discussed with case management Chart reviewed Patient is still coughing a lot this morning Complains of productive sputum Also has a headache Currently on normal saline at 100 cc an hour 12/27/2020 Patient seen and examined Chart reviewed Discussed with RN Discussed with case management Currently getting normal saline at 100 cc an hour He ate breakfast Creatinine is down from 1.8-1.3 Vitals/I&O Vitals/I&O: Vital Signs Date Time Temp Pulse Resp B/P (MAP) Pulse Ox O2 Delivery O2 Flow Rate FiO2 12/31/20 08:37 70 139/71 12/31/20 07:39 95 Room Air 12/31/20 07:00 97.6 18 97.6 Physical Exam General: No acute distress Heart: Regular rate, Normal S1, Normal S2, No murmurs, Gallops Lungs: Clear, Other Abdomen: Normal bowel sounds Extremities: No clubbing, No cyanosis, No edema, Normal pulses, No tenderness/swelling Skin: No rashes Labs Labs: Laboratory Tests Test 12/30/20 11:47 12/30/20 16:30 12/30/20 19:07 12/31/20 04:30 Glucose (Fingerstick) 227 mg/dL (70-99) 277 mg/dL (70-99) 336 mg/dL (70-99) White Blood Count 9.8 x10^3/uL (4.0-11.0) Red Blood Count 4.07 x10^6/uL (4.30-5.70) Hemoglobin 12.3 g/dL (13.0-17.5) Hematocrit 36.4 % (39.0-53.0) Mean Corpuscular Volume 90 fL (79-100) Mean Corpuscular Hemoglobin 30 pg (25-35) Mean Corpuscular Hemoglobin Concent 34 g/dL (31-37) Red Cell Distribution Width 14.4 % (11.5-14.5) Platelet Count 199 x10^3/uL (140-400) Neutrophils (%) (Auto) 91 % (31-73) Lymphocytes (%) (Auto) 5 % (24-48) Monocytes (%) (Auto) 4 % (0-9) Eosinophils (%) (Auto) 0 % (0-3) Basophils (%) (Auto) 0 % (0-3) Neutrophils # (Auto) 8.9 x10^3/uL (1.8-7.7) Lymphocytes # (Auto) 0.5 x10^3/uL (1.0-4.8) Monocytes # (Auto) 0.4 x10^3/uL (0.0-1.1) Eosinophils # (Auto) 0.0 x10^3/uL (0.0-0.7) Basophils # (Auto) 0.0 x10^3/uL (0.0-0.2) Segmented Neutrophils % 93 % (35-66) Lymphocytes % 4 % (24-48) Monocytes % 3 % (0-10) Platelet Estimate Adequate (ADEQUATE) Sodium Level 140 mmol/L (136-145) Potassium Level 3.9 mmol/L (3.5-5.1) Chloride Level 106 mmol/L (98-107) Carbon Dioxide Level 22 mmol/L (21-32) Anion Gap 12 (6-14) Blood Urea Nitrogen 28 mg/dL (8-26) Creatinine 1.3 mg/dL (0.7-1.3) Estimated GFR (Cockcroft-Gault) 52.1 Glucose Level 250 mg/dL (70-99) Calcium Level 8.8 mg/dL (8.5-10.1) Test 12/31/20 07:01 Glucose (Fingerstick) 182 mg/dL (70-99) Assessment and Plan Assessmemt and Plan Problems Medical Problems: (1) Acute kidney injury Status: Acute (2) Shortness of breath Status: Acute Acute respiratory distress with bronchitis and COPD ESTEFANY due to vasomotor nephropathy Lactic acidemia History of CAD with multiple stents History of hypertension History of dyslipidemia History of diabetes mellitus type 2 Plan Hold IV fluids and and trend his creatinine and encourage p.o. intake Home meds DVT prophylaxis Full code Appreciate pulmonary and nephrology input PT OT Supportive care GI prophylaxis Continue proton pump inhibitors Discharge disposition will be home when he is stable Per pulmonary recommendations please see the following and we certainly agree with and appreciate their assistance; cont solumedrol 80 bid 02 titration cont flonase protonix Follow nephrology recs HOB 30 degrees with meals and no eating close to bedtime DVT/GI PPX cont BD and ICS Comment Review of Relevant I have reviewed the following items rohini (where applicable) has been applied. Justifications for Admission Other Justification ESTEFANY RAGHAVENDRA BLAKE III DO Dec 31, 2020 10:44
[2020-12-31 11:00] VITALS: BP 135/67
--- NOTE | 2020-12-31 11:13 | PDOC ---
DATE OF SERVICE DATE: 12/31/20 TIME: 11:11 SUBJECTIVE ROS states feeling much better Still having coughing bouts with phlegm- had last night , couldnt sleep much OBJECTIVE Vital Signs Vital Signs Date Time Temp Pulse Resp B/P (MAP) Pulse Ox O2 Delivery O2 Flow Rate FiO2 12/31/20 08:37 70 139/71 12/31/20 07:39 95 Room Air 12/31/20 07:00 97.6 18 97.6 PHYSICAL EXAM Physical Exam GEN: No apparent distress. HEENT: Normal cephalic, atraumatic, OM moist NECK: Supple, no JVD, LUNGS: Clear to auscultation, Non labored HEART: RRR, S!, S2 present ABDOMEN: Soft, nontender. Positive bowel sounds, no organomegaly EXTREMITIES: Without clubbing, cyanosis, or edema. NEUROLOGIC: Grossly no obvious focal deficits PSYCHIATRIC: Normal affect, normal mood. Stable SKIN: No ulcerations or rashes, good skin turgor, no jaundice No CVA or SP tenderness, No Rodriguez DIAGNOSIS/ASSESSMENT DIAGNOSIS/ASSESSMENT Assessment & Plan ESTEFANY - Vasomotor /ATN , improving renal function UA protein +, No micr hematuria , Renal US unremarkable Supportive care, maintain hydration, avoid nephrotoxins, I/O Acute respiratory distress- per primary, CxR unremarkable at presentation . C/O Cough Atypical pneumonia, possible viral etiology Dx per Primary Mildly Low WBC and Hgb -monitor, defer to primary Hx of CAD with multiple stents Hypertension- antihypertensives Diabetes mellitus type 2 COMMENT/RELEVANT DATA Meds Current Medications Medications (Trade) Dose Ordered Sig/Garrett Start Time Stop Time Status Last Admin Dose Admin Acetaminophen (Tylenol) 650 mg PRN Q4HRS PRN 12/26/20 19:15 Albuterol Sulfate (Ventolin Neb Soln) 2.5 mg 1X ONCE 12/26/20 15:15 12/26/20 15:16 DC 12/26/20 15:44 2.5 MG Albuterol/ Ipratropium (Duoneb) 3 ml RTQID 12/29/20 08:00 12/31/20 07:39 3 ML Aspirin (Ecotrin) 81 mg DAILY 12/27/20 09:00 12/31/20 08:36 81 MG Atorvastatin Calcium (Lipitor) 10 mg QHS 12/26/20 21:00 12/30/20 20:41 10 MG Budesonide (Pulmicort) 0.5 mg RTBID 12/29/20 08:00 12/31/20 07:39 0.5 MG Clopidogrel Bisulfate (Plavix) 75 mg DAILY 12/27/20 09:00 12/31/20 08:37 75 MG Dextrose (Dextrose 50%-Water Syringe) 12.5 gm PRN Q15MIN PRN 12/26/20 19:15 Docusate Sodium (Colace) 100 mg PRN DAILY PRN 12/26/20 19:15 Fluticasone Propionate (Flonase) 2 spray DAILY 12/29/20 09:00 12/31/20 08:35 2 SPRAY Guaifenesin/ Codeine Phosphate (Robitussin Ac) 5 ml PRN Q6HRS PRN 12/29/20 08:45 12/31/20 08:35 5 ML Insulin Human Lispro (HumaLOG) 0-7 UNITS TIDWMEALHC 12/29/20 21:15 12/31/20 08:42 3 UNITS Meclizine HCl (Antivert) 12.5 mg TID 12/26/20 21:00 12/31/20 08:36 12.5 MG Methylprednisolone Sodium Succinate (SOLU-Medrol 125MG VIAL) 80 mg BID94 12/29/20 09:00 12/31/20 08:36 80 MG Metoprolol Succinate (Toprol Xl) 25 mg DAILY 12/27/20 09:00 12/31/20 08:37 25 MG Morphine Sulfate (Morphine Sulfate) 2 mg PRN Q2HR PRN 12/26/20 19:15 12/27/20 19:14 DC Ondansetron HCl (Zofran) 4 mg PRN Q6HRS PRN 12/26/20 19:15 Pantoprazole Sodium (Protonix) 40 mg DAILYAC 12/28/20 07:30 12/31/20 08:36 40 MG Sennosides (Senna) 17.2 mg PRN BID PRN 12/26/20 19:15 Sodium Chloride 1,000 ml @ 125 mls/hr 1X ONCE 12/26/20 20:30 12/27/20 04:29 DC 12/26/20 21:11 125 MLS/HR Lab Laboratory Tests Test 12/30/20 11:47 12/30/20 16:30 12/30/20 19:07 12/31/20 04:30 Glucose (Fingerstick) 227 mg/dL (70-99) 277 mg/dL (70-99) 336 mg/dL (70-99) White Blood Count 9.8 x10^3/uL (4.0-11.0) Red Blood Count 4.07 x10^6/uL (4.30-5.70) Hemoglobin 12.3 g/dL (13.0-17.5) Hematocrit 36.4 % (39.0-53.0) Mean Corpuscular Volume 90 fL (79-100) Mean Corpuscular Hemoglobin 30 pg (25-35) Mean Corpuscular Hemoglobin Concent 34 g/dL (31-37) Red Cell Distribution Width 14.4 % (11.5-14.5) Platelet Count 199 x10^3/uL (140-400) Neutrophils (%) (Auto) 91 % (31-73) Lymphocytes (%) (Auto) 5 % (24-48) Monocytes (%) (Auto) 4 % (0-9) Eosinophils (%) (Auto) 0 % (0-3) Basophils (%) (Auto) 0 % (0-3) Neutrophils # (Auto) 8.9 x10^3/uL (1.8-7.7) Lymphocytes # (Auto) 0.5 x10^3/uL (1.0-4.8) Monocytes # (Auto) 0.4 x10^3/uL (0.0-1.1) Eosinophils # (Auto) 0.0 x10^3/uL (0.0-0.7) Basophils # (Auto) 0.0 x10^3/uL (0.0-0.2) Segmented Neutrophils % 93 % (35-66) Lymphocytes % 4 % (24-48) Monocytes % 3 % (0-10) Platelet Estimate Adequate (ADEQUATE) Sodium Level 140 mmol/L (136-145) Potassium Level 3.9 mmol/L (3.5-5.1) Chloride Level 106 mmol/L (98-107) Carbon Dioxide Level 22 mmol/L (21-32) Anion Gap 12 (6-14) Blood Urea Nitrogen 28 mg/dL (8-26) Creatinine 1.3 mg/dL (0.7-1.3) Estimated GFR (Cockcroft-Gault) 52.1 Glucose Level 250 mg/dL (70-99) Calcium Level 8.8 mg/dL (8.5-10.1) Test 12/31/20 07:01 Glucose (Fingerstick) 182 mg/dL (70-99) Results All relevant outside records, renal labs, imaging studies, telemetry/EKG's were reviewed. Justicifation of Admission Dx: Justifications for Admission: Justification of Admission Dx: N/A AIMEE GARCIA MD Dec 31, 2020 11:13
--- NOTE | 2020-12-31 13:07 | NUR ---
SW following. Discussed with RN, pt from home alone, room air, ada diet, COVID-19 negative. Therapy recommending home with assistance. SW will meet with pt to discuss home health. SW will continue to follow.
[2020-12-31 15:00] VITALS: BP 128/64
[2020-12-31 19:00] VITALS: BP 127/63
[2020-12-31] MEDS: ATORVASTATIN CALCIUM 10 MG TABLET. PO SCH (21:27)
[2020-12-31 22:59] VITALS: BP 122/62
[2021-01-01] MEDS: guaiFENesin/CODEINE 100mg/10mg 5 ML LIQUID PO PRN (00:44)
[2021-01-01 02:42] VITALS: BP 137/69
[2021-01-01 07:00] VITALS: BP 135/55
[2021-01-01 07:56] LABS: BASO % 0 % (0-3); EOS % 0 % (0-3); HEMATOCRIT 35.2 % (39.0-53.0); HEMOGLOBIN 12.1 g/dL (13.0-17.5); LYMPH # 1.2 x10^3/uL (1.0-4.8); LYMPH % 14 % (24-48); MEAN CORPUSCULAR HEMOGLOBIN 31 pg (25-35); MEAN CORPUSCULAR HGB CONC 34 g/dL (31-37); MEAN CORPUSCULAR VOLUME 89 fL (79-100); MONO # 0.6 x10^3/uL (0.0-1.1); MONO % 7 % (0-9); NEUT # 6.7 x10^3/uL (1.8-7.7); NEUT % 79 % (31-73); PLATELET COUNT 195 x10^3/uL (140-400); RED BLOOD COUNT 3.95 x10^6/uL (4.30-5.70); RED CELL DISTRIBUTION WIDTH 14.6 % (11.5-14.5); WHITE BLOOD COUNT 8.6 x10^3/uL (4.0-11.0)
[2021-01-01] MEDS: INSULIN LISPRO 300 UNITS/3 ML VIAL. SQ SCH ×4 (08:00→21:32)
[2021-01-01] MEDS: BUDESONIDE 0.5 MG/2 ML NEBU. NEB SCH ×2 (08:00→20:00)
[2021-01-01] MEDS: IPRATRPIUM/ALBUTEROL 0.5/2.5MG 3 ML NEBU. NEB SCH ×4 (08:00→20:00)
[2021-01-01 08:22] LABS: CALCIUM 8.7 mg/dL (8.5-10.1); CREATININE 1.5 mg/dL (0.7-1.3); GFR 44.2; POTASSIUM 3.7 mmol/L (3.5-5.1)
[2021-01-01] MEDS: PANTOPRAZOLE 40 MG TABLET.DR. PO SCH (09:56)
[2021-01-01] MEDS: MECLIZINE HCL 12.5 MG TABLET. PO SCH ×3 (09:56→21:23)
[2021-01-01] MEDS: predniSONE 10 MG TABLET PO SCH (09:56)
[2021-01-01] MEDS: METOPROLOL SUCC 24HR ER 25 MG TAB.ER.24H. PO SCH (09:56)
[2021-01-01] MEDS: ASPIRIN ENTERIC COATED 81 MG TABLET.DR. PO SCH (09:56)
[2021-01-01] MEDS: FLUTICASONE 50MCG/NASAL SPRAY 16GM BOTTLE. NS SCH (09:56)
[2021-01-01] MEDS: CLOPIDOGREL BISULFATE 75 MG TABLET PO SCH (09:57)
--- NOTE | 2021-01-01 10:14 | PDOC ---
PULMONARY PROGRESS NOTES DATE: 01/01/21 TIME: 10:14 Subjective Pt. remains on room air no increased SOA or Cough Vitals Vital Signs Date Time Temp Pulse Resp B/P (MAP) Pulse Ox O2 Delivery O2 Flow Rate FiO2 01/01/21 09:56 80 135/55 01/01/21 07:38 96 Room Air 01/01/21 07:00 97.9 18 97.9 ROS: No Nausea, No Abdominal Pain General: Alert, Oriented X4 Lungs: Clear Cardiovascular: S1, S2 Abdomen: Soft Neuro Exam: Alert Extremities: No Edema Skin: Warm Labs Laboratory Tests Test 12/30/20 11:47 12/30/20 16:30 12/30/20 19:07 12/31/20 04:30 Glucose (Fingerstick) 227 mg/dL (70-99) 277 mg/dL (70-99) 336 mg/dL (70-99) White Blood Count 9.8 x10^3/uL (4.0-11.0) Red Blood Count 4.07 x10^6/uL (4.30-5.70) Hemoglobin 12.3 g/dL (13.0-17.5) Hematocrit 36.4 % (39.0-53.0) Mean Corpuscular Volume 90 fL (79-100) Mean Corpuscular Hemoglobin 30 pg (25-35) Mean Corpuscular Hemoglobin Concent 34 g/dL (31-37) Red Cell Distribution Width 14.4 % (11.5-14.5) Platelet Count 199 x10^3/uL (140-400) Neutrophils (%) (Auto) 91 % (31-73) Lymphocytes (%) (Auto) 5 % (24-48) Monocytes (%) (Auto) 4 % (0-9) Eosinophils (%) (Auto) 0 % (0-3) Basophils (%) (Auto) 0 % (0-3) Neutrophils # (Auto) 8.9 x10^3/uL (1.8-7.7) Lymphocytes # (Auto) 0.5 x10^3/uL (1.0-4.8) Monocytes # (Auto) 0.4 x10^3/uL (0.0-1.1) Eosinophils # (Auto) 0.0 x10^3/uL (0.0-0.7) Basophils # (Auto) 0.0 x10^3/uL (0.0-0.2) Segmented Neutrophils % 93 % (35-66) Lymphocytes % 4 % (24-48) Monocytes % 3 % (0-10) Platelet Estimate Adequate (ADEQUATE) Sodium Level 140 mmol/L (136-145) Potassium Level 3.9 mmol/L (3.5-5.1) Chloride Level 106 mmol/L (98-107) Carbon Dioxide Level 22 mmol/L (21-32) Anion Gap 12 (6-14) Blood Urea Nitrogen 28 mg/dL (8-26) Creatinine 1.3 mg/dL (0.7-1.3) Estimated GFR (Cockcroft-Gault) 52.1 Glucose Level 250 mg/dL (70-99) Calcium Level 8.8 mg/dL (8.5-10.1) Magnesium Level 2.1 mg/dL (1.8-2.4) Test 12/31/20 07:01 12/31/20 11:13 12/31/20 16:27 12/31/20 19:04 Glucose (Fingerstick) 182 mg/dL (70-99) 176 mg/dL (70-99) 296 mg/dL (70-99) 298 mg/dL (70-99) Test 01/01/21 07:31 01/01/21 07:35 Glucose (Fingerstick) 119 mg/dL (70-99) White Blood Count 8.6 x10^3/uL (4.0-11.0) Red Blood Count 3.95 x10^6/uL (4.30-5.70) Hemoglobin 12.1 g/dL (13.0-17.5) Hematocrit 35.2 % (39.0-53.0) Mean Corpuscular Volume 89 fL (79-100) Mean Corpuscular Hemoglobin 31 pg (25-35) Mean Corpuscular Hemoglobin Concent 34 g/dL (31-37) Red Cell Distribution Width 14.6 % (11.5-14.5) Platelet Count 195 x10^3/uL (140-400) Neutrophils (%) (Auto) 79 % (31-73) Lymphocytes (%) (Auto) 14 % (24-48) Monocytes (%) (Auto) 7 % (0-9) Eosinophils (%) (Auto) 0 % (0-3) Basophils (%) (Auto) 0 % (0-3) Neutrophils # (Auto) 6.7 x10^3/uL (1.8-7.7) Lymphocytes # (Auto) 1.2 x10^3/uL (1.0-4.8) Monocytes # (Auto) 0.6 x10^3/uL (0.0-1.1) Eosinophils # (Auto) 0.0 x10^3/uL (0.0-0.7) Basophils # (Auto) 0.0 x10^3/uL (0.0-0.2) Sodium Level 143 mmol/L (136-145) Potassium Level 3.7 mmol/L (3.5-5.1) Chloride Level 109 mmol/L (98-107) Carbon Dioxide Level 28 mmol/L (21-32) Anion Gap 6 (6-14) Blood Urea Nitrogen 30 mg/dL (8-26) Creatinine 1.5 mg/dL (0.7-1.3) Estimated GFR (Cockcroft-Gault) 44.2 Glucose Level 120 mg/dL (70-99) Calcium Level 8.7 mg/dL (8.5-10.1) Laboratory Tests Test 12/31/20 11:13 12/31/20 16:27 12/31/20 19:04 01/01/21 07:31 Glucose (Fingerstick) 176 mg/dL (70-99) 296 mg/dL (70-99) 298 mg/dL (70-99) 119 mg/dL (70-99) Test 01/01/21 07:35 White Blood Count 8.6 x10^3/uL (4.0-11.0) Red Blood Count 3.95 x10^6/uL (4.30-5.70) Hemoglobin 12.1 g/dL (13.0-17.5) Hematocrit 35.2 % (39.0-53.0) Mean Corpuscular Volume 89 fL (79-100) Mean Corpuscular Hemoglobin 31 pg (25-35) Mean Corpuscular Hemoglobin Concent 34 g/dL (31-37) Red Cell Distribution Width 14.6 % (11.5-14.5) Platelet Count 195 x10^3/uL (140-400) Neutrophils (%) (Auto) 79 % (31-73) Lymphocytes (%) (Auto) 14 % (24-48) Monocytes (%) (Auto) 7 % (0-9) Eosinophils (%) (Auto) 0 % (0-3) Basophils (%) (Auto) 0 % (0-3) Neutrophils # (Auto) 6.7 x10^3/uL (1.8-7.7) Lymphocytes # (Auto) 1.2 x10^3/uL (1.0-4.8) Monocytes # (Auto) 0.6 x10^3/uL (0.0-1.1) Eosinophils # (Auto) 0.0 x10^3/uL (0.0-0.7) Basophils # (Auto) 0.0 x10^3/uL (0.0-0.2) Sodium Level 143 mmol/L (136-145) Potassium Level 3.7 mmol/L (3.5-5.1) Chloride Level 109 mmol/L (98-107) Carbon Dioxide Level 28 mmol/L (21-32) Anion Gap 6 (6-14) Blood Urea Nitrogen 30 mg/dL (8-26) Creatinine 1.5 mg/dL (0.7-1.3) Estimated GFR (Cockcroft-Gault) 44.2 Glucose Level 120 mg/dL (70-99) Calcium Level 8.7 mg/dL (8.5-10.1) Medications Active Scripts Medications Dose Route/Sig Max Daily Dose Days Date Category Meclizine Hcl 12.5 Mg Tablet 1 Tab PO TID 11/30/14 Reported Aspir 81 (Aspirin) 81 Mg Tablet.dr 1 Tab PO DAILY 11/30/14 Reported Glimepiride 1 Mg Tablet 1 Tab PO DAILY 11/30/14 Reported Metformin Hcl 500 Mg Tablet 1 Tab PO BID 11/30/14 Reported Nitrostat (Nitroglycerin) 0.4 Mg Tab.subl 1 Tab SL UD 11/30/14 Reported Zocor (Simvastatin) 10 Mg Tablet 1 Tab PO QHS 11/30/14 Reported Lipitor (Atorvastatin Calcium) 10 Mg Tablet 1 Tab PO QHS 11/30/14 Reported Plavix (Clopidogrel Bisulfate) 75 Mg Tablet 1 Tab PO DAILY 11/30/14 Reported Toprol Xl (Metoprolol Succinate) 25 Mg Tab.er.24h 1 Tab PO DAILY 11/30/14 Reported Comments cxr reviewed no infilt Impression . IMPRESSION: 1. Persistent paroxysmal cough, multifactorial, suspect secondary to nonspecific acute bronchitis and reflux. 2. Acute exacerbation of chronic obstructive pulmonary disease. 3. Tobacco dependence, in remission. 4. Chronic obstructive pulmonary disease, unknown FEV1. 5. Hypertension. 6. Type 2 diabetes. Plan . PLAN: Pt. is stable from respiratory standpoint Continue PO steroids with taper Follow nephrology recs Follow Cardiology recs HOB 30 degrees and no eating before bedtime DVT/GI PPX PT/OT Social work following: pt. refusing Home health Ok to Discharge from our standpoint MARLEN SCHULZ MD Jan 01, 2021 10:14
[2021-01-01 11:00] VITALS: BP 142/65
--- NOTE | 2021-01-01 11:11 | PDOC ---
DATE OF SERVICE DATE: 01/01/21 TIME: 11:05 SUBJECTIVE ROS No new complaints by patient Runs of Vta per nursing OBJECTIVE Vital Signs Vital Signs Date Time Temp Pulse Resp B/P (MAP) Pulse Ox O2 Delivery O2 Flow Rate FiO2 01/01/21 09:56 80 135/55 01/01/21 08:00 Room Air 01/01/21 07:38 96 01/01/21 07:00 97.9 18 97.9 I & 0 Intake and Output 01/01/21 07:00 Intake Total 300 ml Balance 300 ml Intake Oral 300 ml # Voids 2 PHYSICAL EXAM Physical Exam GEN: No apparent distress. HEENT: Normal cephalic, atraumatic, OM moist NECK: Supple, no JVD, LUNGS: Clear to auscultation, Non labored HEART: RRR, S!, S2 present ABDOMEN: Soft, nontender. Positive bowel sounds, no organomegaly EXTREMITIES: Without clubbing, cyanosis, or edema. NEUROLOGIC: Grossly no obvious focal deficits PSYCHIATRIC: Normal affect, normal mood. Stable SKIN: No ulcerations or rashes, good skin turgor, no jaundice No CVA or SP tenderness, No Rodriguez DIAGNOSIS/ASSESSMENT Assessment & Plan ESTEFANY - Vasomotor /ATN , UA protein +, No micr hematuria , Renal US unremarkable , ? his baseline (no prior labs are avialble to me from his PCP's) Supportive care, maintain hydration, avoid nephrotoxins, I/O recommend post dc follow up with PCP with labs in 1-2 weeks post dc and call our to make appt with me in 6-8 weeks with renal panel Acute respiratory distress- per primary, CxR unremarkable at presentation . C/O Cough Atypical pneumonia, possible viral etiology Dx per Primary Hx of CAD with multiple stents Hypertension- antihypertensives Diabetes mellitus type 2 DC planning per Primary/Pulmonary COMMENT/RELEVANT DATA Meds Current Medications Medications (Trade) Dose Ordered Sig/Garrett Start Time Stop Time Status Last Admin Dose Admin Acetaminophen (Tylenol) 650 mg PRN Q4HRS PRN 12/26/20 19:15 Albuterol Sulfate (Ventolin Neb Soln) 2.5 mg 1X ONCE 12/26/20 15:15 12/26/20 15:16 DC 12/26/20 15:44 2.5 MG Albuterol/ Ipratropium (Duoneb) 3 ml RTQID 12/29/20 08:00 12/31/20 19:19 3 ML Aspirin (Ecotrin) 81 mg DAILY 12/27/20 09:00 01/01/21 09:56 81 MG Atorvastatin Calcium (Lipitor) 10 mg QHS 12/26/20 21:00 12/31/20 21:27 10 MG Budesonide (Pulmicort) 0.5 mg RTBID 12/29/20 08:00 12/31/20 19:19 0.5 MG Clopidogrel Bisulfate (Plavix) 75 mg DAILY 12/27/20 09:00 01/01/21 09:57 75 MG Dextrose (Dextrose 50%-Water Syringe) 12.5 gm PRN Q15MIN PRN 12/26/20 19:15 Docusate Sodium (Colace) 100 mg PRN DAILY PRN 12/26/20 19:15 Fluticasone Propionate (Flonase) 2 spray DAILY 12/29/20 09:00 01/01/21 09:56 2 SPRAY Guaifenesin/ Codeine Phosphate (Robitussin Ac) 5 ml PRN Q6HRS PRN 12/29/20 08:45 01/01/21 00:44 5 ML Insulin Human Lispro (HumaLOG) 0-7 UNITS TIDWMEALHC 12/29/20 21:15 12/31/20 21:30 3 UNITS Meclizine HCl (Antivert) 12.5 mg TID 12/26/20 21:00 01/01/21 09:56 12.5 MG Methylprednisolone Sodium Succinate (SOLU-Medrol 125MG VIAL) 80 mg BID94 12/29/20 09:00 12/31/20 17:00 DC 12/31/20 08:36 80 MG Metoprolol Succinate (Toprol Xl) 25 mg DAILY 12/27/20 09:00 01/01/21 09:56 25 MG Morphine Sulfate (Morphine Sulfate) 2 mg PRN Q2HR PRN 12/26/20 19:15 12/27/20 19:14 DC Ondansetron HCl (Zofran) 4 mg PRN Q6HRS PRN 12/26/20 19:15 Pantoprazole Sodium (Protonix) 40 mg DAILYAC 12/28/20 07:30 01/01/21 09:56 40 MG Prednisone (Prednisone) 40 mg DAILY 01/01/21 09:00 01/01/21 09:56 40 MG Sennosides (Senna) 17.2 mg PRN BID PRN 12/26/20 19:15 Sodium Chloride 1,000 ml @ 125 mls/hr 1X ONCE 12/26/20 20:30 12/27/20 04:29 DC 12/26/20 21:11 125 MLS/HR Lab Laboratory Tests Test 12/31/20 11:13 12/31/20 16:27 12/31/20 19:04 01/01/21 07:31 Glucose (Fingerstick) 176 mg/dL (70-99) 296 mg/dL (70-99) 298 mg/dL (70-99) 119 mg/dL (70-99) Test 01/01/21 07:35 White Blood Count 8.6 x10^3/uL (4.0-11.0) Red Blood Count 3.95 x10^6/uL (4.30-5.70) Hemoglobin 12.1 g/dL (13.0-17.5) Hematocrit 35.2 % (39.0-53.0) Mean Corpuscular Volume 89 fL (79-100) Mean Corpuscular Hemoglobin 31 pg (25-35) Mean Corpuscular Hemoglobin Concent 34 g/dL (31-37) Red Cell Distribution Width 14.6 % (11.5-14.5) Platelet Count 195 x10^3/uL (140-400) Neutrophils (%) (Auto) 79 % (31-73) Lymphocytes (%) (Auto) 14 % (24-48) Monocytes (%) (Auto) 7 % (0-9) Eosinophils (%) (Auto) 0 % (0-3) Basophils (%) (Auto) 0 % (0-3) Neutrophils # (Auto) 6.7 x10^3/uL (1.8-7.7) Lymphocytes # (Auto) 1.2 x10^3/uL (1.0-4.8) Monocytes # (Auto) 0.6 x10^3/uL (0.0-1.1) Eosinophils # (Auto) 0.0 x10^3/uL (0.0-0.7) Basophils # (Auto) 0.0 x10^3/uL (0.0-0.2) Sodium Level 143 mmol/L (136-145) Potassium Level 3.7 mmol/L (3.5-5.1) Chloride Level 109 mmol/L (98-107) Carbon Dioxide Level 28 mmol/L (21-32) Anion Gap 6 (6-14) Blood Urea Nitrogen 30 mg/dL (8-26) Creatinine 1.5 mg/dL (0.7-1.3) Estimated GFR (Cockcroft-Gault) 44.2 Glucose Level 120 mg/dL (70-99) Calcium Level 8.7 mg/dL (8.5-10.1) Results All relevant outside records, renal labs, imaging studies, telemetry/EKG's were reviewed. Justicifation of Admission Dx: Justifications for Admission: Justification of Admission Dx: N/A AIMEE GARCIA MD Jan 01, 2021 11:11
--- NOTE | 2021-01-01 12:05 | PDOC2 ---
CARDIAC CONSULT DATE OF CONSULT Date of Consult DATE: 01/01/21 TIME: 12:00 REASON FOR CONSULT Reason for Consult: NSVT REFERRING PHYSICIAN Referring Physician: Dr. Freeman SOURCE Source: Chart review, Patient HISTORY OF PRESENT ILLNESS HISTORY OF PRESENT ILLNESS This is an 89 yo male who presented secondary to cough, shortness or breath, and weakness. Tele noted with frequent PVC's, and short bursts of NSVT, which prompt ed this consult. PAST MEDICAL HISTORY Cardiovascular: CAD, HTN, Hyperlipidemia, Other (vertigo, PVCs) Pulmonary: COPD, Other (EDWARDO) Musculoskeletal: Osteoarthritis Endocrine: Diabetes PAST SURGICAL HISTORY Past Surgical History: Other (PCI/stents) FAMILY HISTORY Family History: Heart Disease SOCIAL HISTORY Smoke: Quit Drugs: None Lives: with Family CURRENT MEDICATIONS CURRENT MEDICATIONS Current Medications Medications (Trade) Dose Ordered Sig/Garrett Route PRN Reason Start Time Stop Time Status Last Admin Dose Admin Prednisone (Prednisone) 40 mg DAILY PO 01/01/21 09:00 01/01/21 09:56 ALLERGIES ALLERGIES: Coded Allergies: Tetracyclines (Verified Allergy, Intermediate, 11/30/14) ROS Review of System 14 point ROS conducted with pertinent positives noted above in hPI PHYSICAL EXAM General: Alert, Oriented X3, Cooperative, No acute distress HEENT: Atraumatic, Mucous membr. moist/pink Lungs: Other (diminished bases) Heart: Regular rate, Other (SR with frequent PVCs) Abdomen: Soft, No tenderness Extremities: No edema Skin: No significant lesion Neuro: Normal speech, Sensation intact Psych/Mental Status: Mental status NL, Mood NL MUSCULOSKELETAL: Osteoarthritic changes both hands VITALS/I&O VITALS/I&O: Vital Signs Date Time Temp Pulse Resp B/P (MAP) Pulse Ox O2 Delivery O2 Flow Rate FiO2 01/01/21 11:37 Room Air 01/01/21 11:00 98.0 76 18 142/65 (90) 96 98.0 I & O 12/31/20 12/31/20 01/01/21 15:00 23:00 07:00 Intake Total 300 ml Balance 300 ml LABS Lab: Laboratory Tests Test 12/31/20 16:27 12/31/20 19:04 01/01/21 07:31 01/01/21 07:35 Glucose (Fingerstick) 296 mg/dL (70-99) H 298 mg/dL (70-99) H 119 mg/dL (70-99) H White Blood Count 8.6 x10^3/uL (4.0-11.0) Red Blood Count 3.95 x10^6/uL (4.30-5.70) L Hemoglobin 12.1 g/dL (13.0-17.5) L Hematocrit 35.2 % (39.0-53.0) L Mean Corpuscular Volume 89 fL (79-100) Mean Corpuscular Hemoglobin 31 pg (25-35) Mean Corpuscular Hemoglobin Concent 34 g/dL (31-37) Red Cell Distribution Width 14.6 % (11.5-14.5) H Platelet Count 195 x10^3/uL (140-400) Neutrophils (%) (Auto) 79 % (31-73) H Lymphocytes (%) (Auto) 14 % (24-48) L Monocytes (%) (Auto) 7 % (0-9) Eosinophils (%) (Auto) 0 % (0-3) Basophils (%) (Auto) 0 % (0-3) Neutrophils # (Auto) 6.7 x10^3/uL (1.8-7.7) Lymphocytes # (Auto) 1.2 x10^3/uL (1.0-4.8) Monocytes # (Auto) 0.6 x10^3/uL (0.0-1.1) Eosinophils # (Auto) 0.0 x10^3/uL (0.0-0.7) Basophils # (Auto) 0.0 x10^3/uL (0.0-0.2) Sodium Level 143 mmol/L (136-145) Potassium Level 3.7 mmol/L (3.5-5.1) Chloride Level 109 mmol/L (98-107) H Carbon Dioxide Level 28 mmol/L (21-32) Anion Gap 6 (6-14) Blood Urea Nitrogen 30 mg/dL (8-26) H Creatinine 1.5 mg/dL (0.7-1.3) H Estimated GFR (Cockcroft-Gault) 44.2 Glucose Level 120 mg/dL (70-99) H Calcium Level 8.7 mg/dL (8.5-10.1) Test 01/01/21 11:46 Glucose (Fingerstick) 178 mg/dL (70-99) H Laboratory Tests 01/01/21 07:35 Laboratory Tests 01/01/21 07:35 EKG EKG 11/03/17 - HOLTER WEARABLE ECG MONITOR CONNECT + SCAN The study ran for a total of 44 hours and 23 minutes. The basic rhythm is sinus with a mean heart rate 73 beats per minute. The maximum heart rate was 110 and the minimum heart rate 58 beats per minute. There were a total of 762 ventricular prematurities, 42 ventricular pairs were noted. There was one 3- beat run of nonsustained ventricular tachycardia at a fairly slow heart rate. There were 259 atrial prematurities. There was no evidence of atrial fibri llation or flutter. CONCLUSION: The Holter study demonstrates a few atrial and ventricular premat urities. There was no evidence of atrial fibrillation or flutter. No high- grade arrhythmia was detected. ECHOCARDIOGRAM ECHOCARDIOGRAM 08/01/16 - 2-D + DOPPLER ECHOCARDIOGRAM Interpretation Summary Normal chamber sizes Left ventricular ejection fraction = 55% Unremarkable cardiac valve structures for age Mild MV regurgitation Pulmonary artery pressure = 21mmHg No significant pericardial effusion No significant change from prior study of 12/09/06 STRESS TEST STRESS TEST 12/04/17 - Procedure: D-SPECT MULTI GATED THALLIUM REGADENOSON MPI STRESS TEST SUMMARY/OPINION: This study is probably normal. No definite perfusion defects are present ejection fraction is problematic due to the variable R-R interval but qualitatively appears to be normal and should be verified using other modalities. There are no definite perfusion defects on this study other high risk indicators are not noted. This exam is compared to a previous study dated 01/10/2015. At that time the summed stress score was 0 calculated ejection fraction 63% end-diastolic volume of 63 mL. The previous study was interpreted to be normal. HEART CATH HEART CATH His most recent cardiac catheterization was in January 2012 which demonstrated patency of the previously placed stents in the proximal LAD and diagonal branch with extension into the left main. There is also a patent left circumflex stent. Due to the complex nature of his previous PCI, he was recommended to remain on dual antibiotic therapy indefinitely. ASSESSMENT/PLAN ASSESSMENT/PLAN 1. Dyspnea, cough with acute bronchitis and AE COPD 2. Arrhythmia; frequent PVC's and brief bursts of NSVT. Known h/o frequent PVC's. Event monitor noted above. Echo 2016 with preserved LV systolic function 3. ESTEFANY; improved 4. CAD s/p PCI/stents. Follows with [facility], Dr. Butcher, although has not been seen since 12/2018 5. Hypertension; controlled 6. Hyperlipidemia; statin 7. Diabetes, II Recommendations Check Mg and TSH Echo to assess LV systolic function Continue metoprolol; will increase to 50mg daily for suppression Secondary prevention measures Supportive care HERMAN VAZQUEZ APRN Jan 01, 2021 12:05
--- NOTE | 2021-01-01 13:37 | PDOC3 ---
Discharge Summary Visit Information Date of Admission: Dec 26, 2020 Date of Discharge: Jan 02, 2021 Final Diagnosis 1. Persistent paroxysmal cough, multifactorial, suspect secondary to nonspecific acute bronchitis and reflux. 2. Acute exacerbation of chronic obstructive pulmonary disease. 3. viral pneumonia and pneumonitis 4. acute renal fialure, with ATN 5. Tobacco dependence, in remission. 6. Chronic obstructive pulmonary disease, unknown FEV1. 7. Hypertension. 8. Type 2 diabetes. Problems Medical Problems: (1) Acute kidney injury Status: Acute (2) Shortness of breath Status: Acute Brief Hospital Course Allergies Allergies Coded Allergies Type Severity Reaction Last Updated Verified Tetracyclines Allergy Intermediate 11/30/14 Yes Vital Signs Vital Signs Date Time Temp Pulse Resp B/P (MAP) Pulse Ox O2 Delivery O2 Flow Rate FiO2 01/01/21 11:37 Room Air 01/01/21 11:00 98.0 76 18 142/65 (90) 96 98.0 Lab Results Laboratory Tests Test 12/30/20 16:30 12/30/20 19:07 12/31/20 04:30 12/31/20 07:01 Glucose (Fingerstick) 277 mg/dL (70-99) 336 mg/dL (70-99) 182 mg/dL (70-99) White Blood Count 9.8 x10^3/uL (4.0-11.0) Red Blood Count 4.07 x10^6/uL (4.30-5.70) Hemoglobin 12.3 g/dL (13.0-17.5) Hematocrit 36.4 % (39.0-53.0) Mean Corpuscular Volume 90 fL (79-100) Mean Corpuscular Hemoglobin 30 pg (25-35) Mean Corpuscular Hemoglobin Concent 34 g/dL (31-37) Red Cell Distribution Width 14.4 % (11.5-14.5) Platelet Count 199 x10^3/uL (140-400) Neutrophils (%) (Auto) 91 % (31-73) Lymphocytes (%) (Auto) 5 % (24-48) Monocytes (%) (Auto) 4 % (0-9) Eosinophils (%) (Auto) 0 % (0-3) Basophils (%) (Auto) 0 % (0-3) Neutrophils # (Auto) 8.9 x10^3/uL (1.8-7.7) Lymphocytes # (Auto) 0.5 x10^3/uL (1.0-4.8) Monocytes # (Auto) 0.4 x10^3/uL (0.0-1.1) Eosinophils # (Auto) 0.0 x10^3/uL (0.0-0.7) Basophils # (Auto) 0.0 x10^3/uL (0.0-0.2) Segmented Neutrophils % 93 % (35-66) Lymphocytes % 4 % (24-48) Monocytes % 3 % (0-10) Platelet Estimate Adequate (ADEQUATE) Sodium Level 140 mmol/L (136-145) Potassium Level 3.9 mmol/L (3.5-5.1) Chloride Level 106 mmol/L (98-107) Carbon Dioxide Level 22 mmol/L (21-32) Anion Gap 12 (6-14) Blood Urea Nitrogen 28 mg/dL (8-26) Creatinine 1.3 mg/dL (0.7-1.3) Estimated GFR (Cockcroft-Gault) 52.1 Glucose Level 250 mg/dL (70-99) Calcium Level 8.8 mg/dL (8.5-10.1) Magnesium Level 2.1 mg/dL (1.8-2.4) Test 12/31/20 11:13 12/31/20 16:27 12/31/20 19:04 01/01/21 07:31 Glucose (Fingerstick) 176 mg/dL (70-99) 296 mg/dL (70-99) 298 mg/dL (70-99) 119 mg/dL (70-99) Test 01/01/21 07:35 01/01/21 11:46 White Blood Count 8.6 x10^3/uL (4.0-11.0) Red Blood Count 3.95 x10^6/uL (4.30-5.70) Hemoglobin 12.1 g/dL (13.0-17.5) Hematocrit 35.2 % (39.0-53.0) Mean Corpuscular Volume 89 fL (79-100) Mean Corpuscular Hemoglobin 31 pg (25-35) Mean Corpuscular Hemoglobin Concent 34 g/dL (31-37) Red Cell Distribution Width 14.6 % (11.5-14.5) Platelet Count 195 x10^3/uL (140-400) Neutrophils (%) (Auto) 79 % (31-73) Lymphocytes (%) (Auto) 14 % (24-48) Monocytes (%) (Auto) 7 % (0-9) Eosinophils (%) (Auto) 0 % (0-3) Basophils (%) (Auto) 0 % (0-3) Neutrophils # (Auto) 6.7 x10^3/uL (1.8-7.7) Lymphocytes # (Auto) 1.2 x10^3/uL (1.0-4.8) Monocytes # (Auto) 0.6 x10^3/uL (0.0-1.1) Eosinophils # (Auto) 0.0 x10^3/uL (0.0-0.7) Basophils # (Auto) 0.0 x10^3/uL (0.0-0.2) Sodium Level 143 mmol/L (136-145) Potassium Level 3.7 mmol/L (3.5-5.1) Chloride Level 109 mmol/L (98-107) Carbon Dioxide Level 28 mmol/L (21-32) Anion Gap 6 (6-14) Blood Urea Nitrogen 30 mg/dL (8-26) Creatinine 1.5 mg/dL (0.7-1.3) Estimated GFR (Cockcroft-Gault) 44.2 Glucose Level 120 mg/dL (70-99) Calcium Level 8.7 mg/dL (8.5-10.1) Magnesium Level 2.0 mg/dL (1.8-2.4) Thyroid Stimulating Hormone (TSH) 1.621 uIU/mL (0.358-3.74) Glucose (Fingerstick) 178 mg/dL (70-99) Laboratory Tests Test 12/31/20 16:27 12/31/20 19:04 01/01/21 07:31 01/01/21 07:35 Glucose (Fingerstick) 296 mg/dL (70-99) 298 mg/dL (70-99) 119 mg/dL (70-99) White Blood Count 8.6 x10^3/uL (4.0-11.0) Red Blood Count 3.95 x10^6/uL (4.30-5.70) Hemoglobin 12.1 g/dL (13.0-17.5) Hematocrit 35.2 % (39.0-53.0) Mean Corpuscular Volume 89 fL (79-100) Mean Corpuscular Hemoglobin 31 pg (25-35) Mean Corpuscular Hemoglobin Concent 34 g/dL (31-37) Red Cell Distribution Width 14.6 % (11.5-14.5) Platelet Count 195 x10^3/uL (140-400) Neutrophils (%) (Auto) 79 % (31-73) Lymphocytes (%) (Auto) 14 % (24-48) Monocytes (%) (Auto) 7 % (0-9) Eosinophils (%) (Auto) 0 % (0-3) Basophils (%) (Auto) 0 % (0-3) Neutrophils # (Auto) 6.7 x10^3/uL (1.8-7.7) Lymphocytes # (Auto) 1.2 x10^3/uL (1.0-4.8) Monocytes # (Auto) 0.6 x10^3/uL (0.0-1.1) Eosinophils # (Auto) 0.0 x10^3/uL (0.0-0.7) Basophils # (Auto) 0.0 x10^3/uL (0.0-0.2) Sodium Level 143 mmol/L (136-145) Potassium Level 3.7 mmol/L (3.5-5.1) Chloride Level 109 mmol/L (98-107) Carbon Dioxide Level 28 mmol/L (21-32) Anion Gap 6 (6-14) Blood Urea Nitrogen 30 mg/dL (8-26) Creatinine 1.5 mg/dL (0.7-1.3) Estimated GFR (Cockcroft-Gault) 44.2 Glucose Level 120 mg/dL (70-99) Calcium Level 8.7 mg/dL (8.5-10.1) Magnesium Level 2.0 mg/dL (1.8-2.4) Thyroid Stimulating Hormone (TSH) 1.621 uIU/mL (0.358-3.74) Test 01/01/21 11:46 Glucose (Fingerstick) 178 mg/dL (70-99) Brief Hospital Course Mr. Denton is a 89 old male with past medical history of CAD with multiple stents, diabetes mellitus, dyslipidemia who comes in with complaints of shortness of breath and cough, was worsening and was severely fatigued. Poor PO intake and weakness vasomotor nephrophaty, Patient has a history of irregular heartbeat, DC, stents, former smoker, diabetes, hypertension, high cholesterol. Discharge Information Condition at Discharge: Improved Follow Up: Weeks Disposition/Orders: D/C to Home w/ HH Scheduled Aspirin (Aspir 81) 81 Mg Tablet.dr, 1 TAB PO DAILY, #30 Ref 5 (Reported) Entered as Reported by: Vidhya Harman on 11/30/141157 Last Action: Continued on 12/26/201915 by VIGNESH LAST MD Atorvastatin Calcium (Lipitor) 10 Mg Tablet, 1 TAB PO QHS, #90 Ref 1 (Reported) Entered as Reported by: Vidhya Harman on 11/30/141157 Last Action: Continued on 12/26/201915 by VIGNESH LAST MD Clopidogrel Bisulfate (Plavix) 75 Mg Tablet, 1 TAB PO DAILY, #90 Ref 1 (Reported) Entered as Reported by: Vidhya Harman on 11/30/141157 Last Action: Continued on 12/26/201915 by VIGNESH LAST MD Glimepiride (Glimepiride) 1 Mg Tablet, 1 TAB PO DAILY, #30 Ref 5 (Reported) Entered as Reported by: Vidhya Harman on 11/30/141157 Meclizine Hcl (Meclizine Hcl) 12.5 Mg Tablet, 1 TAB PO TID, #90 Ref 3 (Reported) Entered as Reported by: Vidhya Harman on 11/30/141157 Last Action: Continued on 12/26/201915 by VIGNESH LAST MD Metformin Hcl (Metformin Hcl) 500 Mg Tablet, 1 TAB PO BID, #60 Ref 3 (Reported) Entered as Reported by: Vidhya Harman on 11/30/141157 Last Action: HELD on 12/26/201915 by VIGNESH LAST MD Metoprolol Succinate (Toprol Xl) 25 Mg Tab.er.24h, 1 TAB PO DAILY, #30 Ref 5 (Reported) Entered as Reported by: Vidhya Harman on 11/30/141157 Last Action: Continued on 12/26/201915 by VIGNESH LAST MD Nitroglycerin (Nitrostat) 0.4 Mg Tab.subl, 1 TAB SL UD, #100 Ref 3 (Reported) Entered as Reported by: Vidhya Harman on 11/30/14 1158 Simvastatin (Zocor) 10 Mg Tablet, 1 TAB PO QHS, #30 Ref 5 (Reported) Entered as Reported by: Vidhya Harman on 11/30/14 1158 Last Action: HELD on 12/26/201915 by VIGNESH LAST MD Patient Instructions Patient Instructions pt seen in person > 30 min pt seen and eval on 01/02, had attempted to DC the day earlier, Justicifation of Admission Dx: Justifications for Admission: Justification of Admission Dx: N/A LESLEY OVALLES MD Jan 01, 2021 13:37
--- NOTE | 2021-01-01 13:46 | SNU/HH DC ---
DISCHARGE ORDERS DISCHARGE INFORMATION: DISCHARGE DATE: Jan 01, 2021 FINAL DIAGNOSIS CHF, acute renal injury Problems Medical Problems: (1) Acute kidney injury Status: Acute (2) Shortness of breath Status: Acute CONDITION ON DISCHARGE: Stable CODE STATUS: Code Status: Full POST DISCHARGE ORDERS: ACTIVITY ORDERS: No restrictions WEIGHT BEARING STATUS: No restrictions DIET AFTER DISCHARGE: Cardiac FOLLOW-UP: PHYSICIAN FOLLOW-UP: primary care 1 week TREATMENT/EQUIPMENT ORDERS: ADAPTIVE EQUIPMENT NEEDED: Cane Physical Therapy For: Evalulation/Treatment Occupational Therapy For: Evaluation/Treatment DISCHARGE MEDICATIONS: Home Meds Reported Medications Meclizine Hcl (MECLIZINE HCL) 12.5 Mg Tablet, 1 TAB PO TID, #90 TAB 3 Refills 15 Aspirin (ASPIR 81) 81 Mg Tablet.dr, 1 TAB PO DAILY, #30 TAB 5 Refills 715 Glimepiride (GLIMEPIRIDE) 1 Mg Tablet, 1 TAB PO DAILY, #30 TAB 5 Refills /7/15 Metformin Hcl (METFORMIN HCL) 500 Mg Tablet, 1 TAB PO BID, #60 TAB 3 Refills 715 Nitroglycerin (NITROSTAT) 0.4 Mg Tab.subl, 1 TAB SL UD, #100 TAB 3 Refills 7/15 Simvastatin (ZOCOR) 10 Mg Tablet, 1 TAB PO QHS, #30 TAB 5 Refills /7/15 Atorvastatin Calcium (LIPITOR) 10 Mg Tablet, 1 TAB PO QHS, #90 TAB 1 Refill /7/15 Clopidogrel Bisulfate (PLAVIX) 75 Mg Tablet, 1 TAB PO DAILY, #90 TAB 1 Refill 7/15 Metoprolol Succinate (TOPROL XL) 25 Mg Tab.er.24h, 1 TAB PO DAILY, #30 TAB 5 Refills /7/15 LESLEY OVALLES MD Jan 01, 2021 13:46
[2021-01-01 15:00] VITALS: BP 127/66
[2021-01-01] MEDS ORDERED: METOPROLOL SUCC 24HR ER 25 MG TAB.ER.24H. PO ONE (15:30)
[2021-01-01 19:00] VITALS: BP 140/56
[2021-01-01] MEDS: SENNOSIDES 8.6 MG TABLET PO PRN (21:21)
[2021-01-01] MEDS: ATORVASTATIN CALCIUM 10 MG TABLET. PO SCH (21:23)
[2021-01-01 22:33] VITALS: BP 123/63
[2021-01-02 06:57] LABS: BASO % 0 % (0-3); EOS % 0 % (0-3); HEMATOCRIT 34.6 % (39.0-53.0); HEMOGLOBIN 11.7 g/dL (13.0-17.5); LYMPH # 0.8 x10^3/uL (1.0-4.8); LYMPH % 10 % (24-48); MEAN CORPUSCULAR HEMOGLOBIN 30 pg (25-35); MEAN CORPUSCULAR HGB CONC 34 g/dL (31-37); MEAN CORPUSCULAR VOLUME 89 fL (79-100); MONO # 0.5 x10^3/uL (0.0-1.1); MONO % 7 % (0-9); NEUT # 6.5 x10^3/uL (1.8-7.7); NEUT % 83 % (31-73); PLATELET COUNT 194 x10^3/uL (140-400); RED CELL DISTRIBUTION WIDTH 14.6 % (11.5-14.5); WHITE BLOOD COUNT 7.8 x10^3/uL (4.0-11.0)
[2021-01-02 07:00] VITALS: BP 159/77
[2021-01-02 07:02] LABS: CALCIUM 8.5 mg/dL (8.5-10.1); CREATININE 1.5 mg/dL (0.7-1.3); GFR 44.2; POTASSIUM 3.9 mmol/L (3.5-5.1)
[2021-01-02] MEDS: BUDESONIDE 0.5 MG/2 ML NEBU. NEB SCH (07:30)
[2021-01-02] MEDS: IPRATRPIUM/ALBUTEROL 0.5/2.5MG 3 ML NEBU. NEB SCH ×3 (07:30→15:26)
[2021-01-02] MEDS: INSULIN LISPRO 300 UNITS/3 ML VIAL. SQ SCH ×3 (07:47→18:02)
[2021-01-02] MEDS: FLUTICASONE 50MCG/NASAL SPRAY 16GM BOTTLE. NS SCH (08:01)
[2021-01-02] MEDS: ASPIRIN ENTERIC COATED 81 MG TABLET.DR. PO SCH (08:01)
[2021-01-02] MEDS: MECLIZINE HCL 12.5 MG TABLET. PO SCH ×2 (08:02→13:59)
[2021-01-02] MEDS: CLOPIDOGREL BISULFATE 75 MG TABLET PO SCH (08:02)
[2021-01-02] MEDS: PANTOPRAZOLE 40 MG TABLET.DR. PO SCH (08:02)
[2021-01-02] MEDS: predniSONE 10 MG TABLET PO SCH (08:02)
[2021-01-02] MEDS: SENNOSIDES 8.6 MG TABLET PO PRN (08:07)
[2021-01-02] MEDS ORDERED: METOPROLOL SUCC 24HR ER 50 MG TAB.ER.24H. PO SCH (09:00)
--- NOTE | 2021-01-02 09:53 | PDOC ---
PULMONARY PROGRESS NOTES DATE: 01/02/21 TIME: 09:53 Subjective Pt. remains on room air no increased SOA or Cough Vitals Vital Signs Date Time Temp Pulse Resp B/P (MAP) Pulse Ox O2 Delivery O2 Flow Rate FiO2 01/02/21 08:08 Room Air 01/02/21 08:02 73 159/77 01/02/21 07:34 99 01/02/21 07:00 97.4 18 97.4 ROS: No Nausea, No Abdominal Pain General: Alert, Oriented X4 Lungs: Clear Cardiovascular: S1, S2 Abdomen: Soft Neuro Exam: Alert Extremities: No Edema Skin: Warm Labs Laboratory Tests Test 12/31/20 11:13 12/31/20 16:27 12/31/20 19:04 01/01/21 07:31 Glucose (Fingerstick) 176 mg/dL (70-99) 296 mg/dL (70-99) 298 mg/dL (70-99) 119 mg/dL (70-99) Test 01/01/21 07:35 01/01/21 11:46 01/01/21 16:52 01/01/21 19:01 White Blood Count 8.6 x10^3/uL (4.0-11.0) Red Blood Count 3.95 x10^6/uL (4.30-5.70) Hemoglobin 12.1 g/dL (13.0-17.5) Hematocrit 35.2 % (39.0-53.0) Mean Corpuscular Volume 89 fL (79-100) Mean Corpuscular Hemoglobin 31 pg (25-35) Mean Corpuscular Hemoglobin Concent 34 g/dL (31-37) Red Cell Distribution Width 14.6 % (11.5-14.5) Platelet Count 195 x10^3/uL (140-400) Neutrophils (%) (Auto) 79 % (31-73) Lymphocytes (%) (Auto) 14 % (24-48) Monocytes (%) (Auto) 7 % (0-9) Eosinophils (%) (Auto) 0 % (0-3) Basophils (%) (Auto) 0 % (0-3) Neutrophils # (Auto) 6.7 x10^3/uL (1.8-7.7) Lymphocytes # (Auto) 1.2 x10^3/uL (1.0-4.8) Monocytes # (Auto) 0.6 x10^3/uL (0.0-1.1) Eosinophils # (Auto) 0.0 x10^3/uL (0.0-0.7) Basophils # (Auto) 0.0 x10^3/uL (0.0-0.2) Sodium Level 143 mmol/L (136-145) Potassium Level 3.7 mmol/L (3.5-5.1) Chloride Level 109 mmol/L (98-107) Carbon Dioxide Level 28 mmol/L (21-32) Anion Gap 6 (6-14) Blood Urea Nitrogen 30 mg/dL (8-26) Creatinine 1.5 mg/dL (0.7-1.3) Estimated GFR (Cockcroft-Gault) 44.2 Glucose Level 120 mg/dL (70-99) Calcium Level 8.7 mg/dL (8.5-10.1) Magnesium Level 2.0 mg/dL (1.8-2.4) Thyroid Stimulating Hormone (TSH) 1.621 uIU/mL (0.358-3.74) Glucose (Fingerstick) 178 mg/dL (70-99) 281 mg/dL (70-99) 318 mg/dL (70-99) Test 01/02/21 04:15 01/02/21 07:15 White Blood Count 7.8 x10^3/uL (4.0-11.0) Red Blood Count 3.90 x10^6/uL (4.30-5.70) Hemoglobin 11.7 g/dL (13.0-17.5) Hematocrit 34.6 % (39.0-53.0) Mean Corpuscular Volume 89 fL (79-100) Mean Corpuscular Hemoglobin 30 pg (25-35) Mean Corpuscular Hemoglobin Concent 34 g/dL (31-37) Red Cell Distribution Width 14.6 % (11.5-14.5) Platelet Count 194 x10^3/uL (140-400) Neutrophils (%) (Auto) 83 % (31-73) Lymphocytes (%) (Auto) 10 % (24-48) Monocytes (%) (Auto) 7 % (0-9) Eosinophils (%) (Auto) 0 % (0-3) Basophils (%) (Auto) 0 % (0-3) Neutrophils # (Auto) 6.5 x10^3/uL (1.8-7.7) Lymphocytes # (Auto) 0.8 x10^3/uL (1.0-4.8) Monocytes # (Auto) 0.5 x10^3/uL (0.0-1.1) Eosinophils # (Auto) 0.0 x10^3/uL (0.0-0.7) Basophils # (Auto) 0.0 x10^3/uL (0.0-0.2) Sodium Level 142 mmol/L (136-145) Potassium Level 3.9 mmol/L (3.5-5.1) Chloride Level 108 mmol/L (98-107) Carbon Dioxide Level 27 mmol/L (21-32) Anion Gap 7 (6-14) Blood Urea Nitrogen 30 mg/dL (8-26) Creatinine 1.5 mg/dL (0.7-1.3) Estimated GFR (Cockcroft-Gault) 44.2 Glucose Level 161 mg/dL (70-99) Calcium Level 8.5 mg/dL (8.5-10.1) Glucose (Fingerstick) 137 mg/dL (70-99) Laboratory Tests Test 01/01/21 11:46 01/01/21 16:52 01/01/21 19:01 01/02/21 04:15 Glucose (Fingerstick) 178 mg/dL (70-99) 281 mg/dL (70-99) 318 mg/dL (70-99) White Blood Count 7.8 x10^3/uL (4.0-11.0) Red Blood Count 3.90 x10^6/uL (4.30-5.70) Hemoglobin 11.7 g/dL (13.0-17.5) Hematocrit 34.6 % (39.0-53.0) Mean Corpuscular Volume 89 fL (79-100) Mean Corpuscular Hemoglobin 30 pg (25-35) Mean Corpuscular Hemoglobin Concent 34 g/dL (31-37) Red Cell Distribution Width 14.6 % (11.5-14.5) Platelet Count 194 x10^3/uL (140-400) Neutrophils (%) (Auto) 83 % (31-73) Lymphocytes (%) (Auto) 10 % (24-48) Monocytes (%) (Auto) 7 % (0-9) Eosinophils (%) (Auto) 0 % (0-3) Basophils (%) (Auto) 0 % (0-3) Neutrophils # (Auto) 6.5 x10^3/uL (1.8-7.7) Lymphocytes # (Auto) 0.8 x10^3/uL (1.0-4.8) Monocytes # (Auto) 0.5 x10^3/uL (0.0-1.1) Eosinophils # (Auto) 0.0 x10^3/uL (0.0-0.7) Basophils # (Auto) 0.0 x10^3/uL (0.0-0.2) Sodium Level 142 mmol/L (136-145) Potassium Level 3.9 mmol/L (3.5-5.1) Chloride Level 108 mmol/L (98-107) Carbon Dioxide Level 27 mmol/L (21-32) Anion Gap 7 (6-14) Blood Urea Nitrogen 30 mg/dL (8-26) Creatinine 1.5 mg/dL (0.7-1.3) Estimated GFR (Cockcroft-Gault) 44.2 Glucose Level 161 mg/dL (70-99) Calcium Level 8.5 mg/dL (8.5-10.1) Test 01/02/21 07:15 Glucose (Fingerstick) 137 mg/dL (70-99) Medications Active Scripts Medications Dose Route/Sig Max Daily Dose Days Date Category Meclizine Hcl 12.5 Mg Tablet 1 Tab PO TID 11/30/14 Reported Aspir 81 (Aspirin) 81 Mg Tablet.dr 1 Tab PO DAILY 11/30/14 Reported Glimepiride 1 Mg Tablet 1 Tab PO DAILY 11/30/14 Reported Metformin Hcl 500 Mg Tablet 1 Tab PO BID 11/30/14 Reported Nitrostat (Nitroglycerin) 0.4 Mg Tab.subl 1 Tab SL UD 11/30/14 Reported Zocor (Simvastatin) 10 Mg Tablet 1 Tab PO QHS 11/30/14 Reported Lipitor (Atorvastatin Calcium) 10 Mg Tablet 1 Tab PO QHS 11/30/14 Reported Plavix (Clopidogrel Bisulfate) 75 Mg Tablet 1 Tab PO DAILY 11/30/14 Reported Toprol Xl (Metoprolol Succinate) 25 Mg Tab.er.24h 1 Tab PO DAILY 11/30/14 Reported Comments cxr reviewed no infilt Impression . IMPRESSION: 1. Persistent paroxysmal cough, multifactorial, suspect secondary to nonspecific acute bronchitis and reflux. 2. Acute exacerbation of chronic obstructive pulmonary disease. 3. Tobacco dependence, in remission. 4. Chronic obstructive pulmonary disease, unknown FEV1. 5. Hypertension. 6. Type 2 diabetes. Plan . PLAN: Pt. is stable from respiratory standpoint Continue PO steroids with taper Follow nephrology recs Follow Cardiology recs HOB 30 degrees and no eating before bedtime DVT/GI PPX PT/OT Social work following: pt. refusing Home health Ok to Discharge from our standpoint MARLEN SCHULZ MD Jan 02, 2021 09:53
--- NOTE | 2021-01-02 10:53 | PDOC ---
DATE OF SERVICE DATE: 01/02/21 TIME: 10:52 SUBJECTIVE ROS No new complaints OBJECTIVE Vital Signs Vital Signs Date Time Temp Pulse Resp B/P (MAP) Pulse Ox O2 Delivery O2 Flow Rate FiO2 01/02/21 08:08 Room Air 01/02/21 08:02 73 159/77 01/02/21 07:34 99 01/02/21 07:00 97.4 18 97.4 I & 0 Intake and Output 01/02/21 07:00 Intake Total 300 ml Output Total 300 ml Balance 0 ml Intake Oral 300 ml Output Urine Total 300 ml # Voids 1 PHYSICAL EXAM Physical Exam GEN: No apparent distress. HEENT: Normal cephalic, atraumatic, OM moist NECK: Supple, no JVD, LUNGS: Clear to auscultation, Non labored HEART: RRR, S!, S2 present ABDOMEN: Soft, nontender. Positive bowel sounds, no organomegaly EXTREMITIES: Without clubbing, cyanosis, or edema. NEUROLOGIC: Grossly no obvious focal deficits PSYCHIATRIC: Normal affect, normal mood. Stable SKIN: No ulcerations or rashes, good skin turgor, no jaundice No CVA or SP tenderness, No Rodriguez DIAGNOSIS/ASSESSMENT Assessment & Plan ESTEFANY - Vasomotor /ATN , UA protein +, No micr hematuria , Renal US unremarkable , ? his baseline (no prior labs are available to me from his PCP's) Supportive care, maintain hydration, avoid nephrotoxins, I/O recommend post dc follow up with PCP with labs in 1-2 weeks post dc and call our to make appt with me in 6-8 weeks with renal panel Acute respiratory distress- per primary, CxR unremarkable at presentation . C/O Cough Atypical pneumonia, possible viral etiology Dx per Primary Hx of CAD with multiple stents Hypertension- antihypertensives Diabetes mellitus type 2 DC planning per Primary/Pulmonary COMMENT/RELEVANT DATA Meds Current Medications Medications (Trade) Dose Ordered Sig/Garrett Start Time Stop Time Status Last Admin Dose Admin Acetaminophen (Tylenol) 650 mg PRN Q4HRS PRN 12/26/20 19:15 Albuterol Sulfate (Ventolin Neb Soln) 2.5 mg 1X ONCE 12/26/20 15:15 12/26/20 15:16 DC 12/26/20 15:44 2.5 MG Albuterol/ Ipratropium (Duoneb) 3 ml RTQID 12/29/20 08:00 6/9/21 07:30 3 ML Aspirin (Ecotrin) 81 mg DAILY 12/27/20 09:00 01/02/21 08:01 81 MG Atorvastatin Calcium (Lipitor) 10 mg QHS 12/26/20 21:00 01/01/21 21:23 10 MG Budesonide (Pulmicort) 0.5 mg RTBID 12/29/20 08:00 01/02/21 07:30 0.5 MG Clopidogrel Bisulfate (Plavix) 75 mg DAILY 12/27/20 09:00 01/02/21 08:02 75 MG Dextrose (Dextrose 50%-Water Syringe) 12.5 gm PRN Q15MIN PRN 12/26/20 19:15 Docusate Sodium (Colace) 100 mg PRN DAILY PRN 12/26/20 19:15 01/02/21 08:07 100 MG Fluticasone Propionate (Flonase) 2 spray DAILY 12/29/20 09:00 01/02/21 08:01 2 SPRAY Guaifenesin/ Codeine Phosphate (Robitussin Ac) 5 ml PRN Q6HRS PRN 12/29/20 08:45 01/01/21 00:44 5 ML Insulin Human Lispro (HumaLOG) 0-7 UNITS TIDWMEALHC 12/29/20 21:15 01/01/21 21:32 4 UNITS Meclizine HCl (Antivert) 12.5 mg TID 12/26/20 21:00 01/02/21 08:02 12.5 MG Methylprednisolone Sodium Succinate (SOLU-Medrol 125MG VIAL) 80 mg BID94 12/29/20 09:00 12/31/20 17:00 DC 12/31/20 08:36 80 MG Metoprolol Succinate (Toprol Xl) 25 mg 1X ONCE 01/01/21 15:30 01/01/21 15:31 DC 01/01/21 15:40 25 MG Morphine Sulfate (Morphine Sulfate) 2 mg PRN Q2HR PRN 12/26/20 19:15 12/27/20 19:14 DC Ondansetron HCl (Zofran) 4 mg PRN Q6HRS PRN 12/26/20 19:15 Pantoprazole Sodium (Protonix) 40 mg DAILYAC 6/4/21 07:30 01/02/21 08:02 40 MG Prednisone (Prednisone) 40 mg DAILY 01/01/21 09:00 01/02/21 08:02 40 MG Sennosides (Senna) 17.2 mg PRN BID PRN 12/26/20 19:15 01/02/21 08:07 17.2 MG Sodium Chloride 1,000 ml @ 125 mls/hr 1X ONCE 12/26/20 20:30 12/27/20 04:29 DC 12/26/20 21:11 125 MLS/HR Lab Laboratory Tests Test 01/01/21 11:46 01/01/21 16:52 01/01/21 19:01 01/02/21 04:15 Glucose (Fingerstick) 178 mg/dL (70-99) 281 mg/dL (70-99) 318 mg/dL (70-99) White Blood Count 7.8 x10^3/uL (4.0-11.0) Red Blood Count 3.90 x10^6/uL (4.30-5.70) Hemoglobin 11.7 g/dL (13.0-17.5) Hematocrit 34.6 % (39.0-53.0) Mean Corpuscular Volume 89 fL (79-100) Mean Corpuscular Hemoglobin 30 pg (25-35) Mean Corpuscular Hemoglobin Concent 34 g/dL (31-37) Red Cell Distribution Width 14.6 % (11.5-14.5) Platelet Count 194 x10^3/uL (140-400) Neutrophils (%) (Auto) 83 % (31-73) Lymphocytes (%) (Auto) 10 % (24-48) Monocytes (%) (Auto) 7 % (0-9) Eosinophils (%) (Auto) 0 % (0-3) Basophils (%) (Auto) 0 % (0-3) Neutrophils # (Auto) 6.5 x10^3/uL (1.8-7.7) Lymphocytes # (Auto) 0.8 x10^3/uL (1.0-4.8) Monocytes # (Auto) 0.5 x10^3/uL (0.0-1.1) Eosinophils # (Auto) 0.0 x10^3/uL (0.0-0.7) Basophils # (Auto) 0.0 x10^3/uL (0.0-0.2) Sodium Level 142 mmol/L (136-145) Potassium Level 3.9 mmol/L (3.5-5.1) Chloride Level 108 mmol/L (98-107) Carbon Dioxide Level 27 mmol/L (21-32) Anion Gap 7 (6-14) Blood Urea Nitrogen 30 mg/dL (8-26) Creatinine 1.5 mg/dL (0.7-1.3) Estimated GFR (Cockcroft-Gault) 44.2 Glucose Level 161 mg/dL (70-99) Calcium Level 8.5 mg/dL (8.5-10.1) Test 01/02/21 07:15 Glucose (Fingerstick) 137 mg/dL (70-99) Results All relevant outside records, renal labs, imaging studies, telemetry/EKG's were reviewed. Justicifation of Admission Dx: Justifications for Admission: Justification of Admission Dx: N/A AIMEE GARCIA MD Jan 02, 2021 10:53
[2021-01-02 11:00] VITALS: BP 120/60
[2021-01-02] MEDS ORDERED: POLYETHYLENE GLYCOL 3350 17 GM PACKET. PO SCH (11:30)
--- NOTE | 2021-01-02 13:48 | PDOC ---
ISMAEL QUIÑONEZ [employer] 01/02/21 1348: CARDIO Progress Notes Date and Time Date of Service 01/02/2021 Time of Evaluation 1330 Subjective Subjective: No Chest Pain, No shortness of breath, No Palpitations Vitals Vitals Vital Signs Date Time Temp Pulse Resp B/P (MAP) Pulse Ox O2 Delivery O2 Flow Rate FiO2 01/02/21 11:09 97 Room Air 01/02/21 11:00 97.6 80 18 120/60 (80) 97.6 Weight Weight [ ] Input and Output Intake and Output Intake and Output 01/02/21 07:00 Intake Total 300 ml Output Total 300 ml Balance 0 ml Intake Oral 300 ml Output Urine Total 300 ml # Voids 1 Laboratory Labs Laboratory Tests Test 01/01/21 16:52 01/01/21 19:01 01/02/21 04:15 01/02/21 07:15 Glucose (Fingerstick) 281 mg/dL (70-99) 318 mg/dL (70-99) 137 mg/dL (70-99) White Blood Count 7.8 x10^3/uL (4.0-11.0) Red Blood Count 3.90 x10^6/uL (4.30-5.70) Hemoglobin 11.7 g/dL (13.0-17.5) Hematocrit 34.6 % (39.0-53.0) Mean Corpuscular Volume 89 fL (79-100) Mean Corpuscular Hemoglobin 30 pg (25-35) Mean Corpuscular Hemoglobin Concent 34 g/dL (31-37) Red Cell Distribution Width 14.6 % (11.5-14.5) Platelet Count 194 x10^3/uL (140-400) Neutrophils (%) (Auto) 83 % (31-73) Lymphocytes (%) (Auto) 10 % (24-48) Monocytes (%) (Auto) 7 % (0-9) Eosinophils (%) (Auto) 0 % (0-3) Basophils (%) (Auto) 0 % (0-3) Neutrophils # (Auto) 6.5 x10^3/uL (1.8-7.7) Lymphocytes # (Auto) 0.8 x10^3/uL (1.0-4.8) Monocytes # (Auto) 0.5 x10^3/uL (0.0-1.1) Eosinophils # (Auto) 0.0 x10^3/uL (0.0-0.7) Basophils # (Auto) 0.0 x10^3/uL (0.0-0.2) Sodium Level 142 mmol/L (136-145) Potassium Level 3.9 mmol/L (3.5-5.1) Chloride Level 108 mmol/L (98-107) Carbon Dioxide Level 27 mmol/L (21-32) Anion Gap 7 (6-14) Blood Urea Nitrogen 30 mg/dL (8-26) Creatinine 1.5 mg/dL (0.7-1.3) Estimated GFR (Cockcroft-Gault) 44.2 Glucose Level 161 mg/dL (70-99) Calcium Level 8.5 mg/dL (8.5-10.1) Test 01/02/21 11:27 Glucose (Fingerstick) 299 mg/dL (70-99) Microbiology Micro Microbiology 12/26/20 Blood Culture - Final, Complete NO GROWTH AFTER 5 DAYS Physical Exam HEENT: Neck Supple W Full Motion Chest: Symmetric LUNGS: Other (diminished) Heart: RRR (SR with PVCs) Abdomen: Soft N/T Extremities: No Calf Tenderness Neurology: alert, oriented, follow commands Assessment Assessment 1. Dyspnea, cough with acute bronchitis and AE COPD: improved 2. Arrhythmia; frequent PVC's and brief bursts of NSVT. Known h/o frequent PVC's. 3. ESTEFANY; improved 4. CAD s/p PCI/stents. Follows with Dr. Guadalupe LINDQUIST, although has not been seen since 12/2018, clinically stable 5. Hypertension; controlled 6. Hyperlipidemia; statin 7. Diabetes, II Recommendations Follow up with his primary microscopist at [facility]. Secondary prevention measures Continue DAPT. Supportive care Justicifation of Admission Dx: Justifications for Admission: Justification of Admission Dx: N/A YESSI KWON MD 01/04/21 1819: ISMAEL QUIÑONEZ [employer] Jan 02, 2021 13:48 YESSI KWON MD Jan 04, 2021 18:19
[2021-01-02 15:00] VITALS: BP 141/56
--- NOTE | 2021-01-02 16:30 | PDOC ---
[employer] PROGRESS NOTE Date of Service DOS: DATE: 01/02/21 TIME: 16:29 Chief Complaint Chief Complaint Acute respiratory distress Atypical pneumonia, possible viral etiology ESTEFANY due to vasomotor nephropathy Lactic acidemia History of CAD with multiple stents History of hypertension History of dyslipidemia History of diabetes mellitus type 2 History of Present Illness History of Present Illness pt seen 6.8, late entry, tried to DC then, will DC today 01/02. exam pertinent from 01/0112/31/2020 Patient seen exam Discussed with RN Chart reviewed Discussed with trimming caser Patient still coughing a lot and appears weak Ate 100% of his breakfast 12/30/2020 Patient seen and examined He is resting with no apparent distress Chart reviewed Discussed with RN 12/29/2020 Patient seen and examined He is resting with no apparent distress Discussed with RN Chart reviewed His creatinine seems to have plateaued at 1.4 for the past few days so we are holding his IV fluids for now and encouraging p.o. intake 12/28/2020 Patient seen and examined Discussed with RN Discussed with case management Chart reviewed Patient is still coughing a lot this morning Complains of productive sputum Also has a headache Currently on normal saline at 100 cc an hour 12/27/2020 Patient seen and examined Chart reviewed Discussed with RN Discussed with case management Currently getting normal saline at 100 cc an hour He ate breakfast Creatinine is down from 1.8-1.3 Vitals/I&O Vitals/I&O: Vital Signs Date Time Temp Pulse Resp B/P (MAP) Pulse Ox O2 Delivery O2 Flow Rate FiO2 01/02/21 15:27 98 Room Air 01/02/21 11:00 97.6 80 18 120/60 (80) 97.6 I & O 01/01/21 01/01/21 01/02/21 15:00 23:00 07:00 Intake Total 300 ml Output Total 300 ml Balance 0 ml Physical Exam General: Alert, Oriented X3, Cooperative, No acute distress Heart: Regular rate, Other (SR with frequent PVCs) Lungs: Clear Abdomen: Soft, No tenderness Extremities: No edema Skin: No significant lesion Labs Labs: Laboratory Tests Test 01/01/21 16:52 01/01/21 19:01 01/02/21 04:15 01/02/21 07:15 Glucose (Fingerstick) 281 mg/dL (70-99) 318 mg/dL (70-99) 137 mg/dL (70-99) White Blood Count 7.8 x10^3/uL (4.0-11.0) Red Blood Count 3.90 x10^6/uL (4.30-5.70) Hemoglobin 11.7 g/dL (13.0-17.5) Hematocrit 34.6 % (39.0-53.0) Mean Corpuscular Volume 89 fL (79-100) Mean Corpuscular Hemoglobin 30 pg (25-35) Mean Corpuscular Hemoglobin Concent 34 g/dL (31-37) Red Cell Distribution Width 14.6 % (11.5-14.5) Platelet Count 194 x10^3/uL (140-400) Neutrophils (%) (Auto) 83 % (31-73) Lymphocytes (%) (Auto) 10 % (24-48) Monocytes (%) (Auto) 7 % (0-9) Eosinophils (%) (Auto) 0 % (0-3) Basophils (%) (Auto) 0 % (0-3) Neutrophils # (Auto) 6.5 x10^3/uL (1.8-7.7) Lymphocytes # (Auto) 0.8 x10^3/uL (1.0-4.8) Monocytes # (Auto) 0.5 x10^3/uL (0.0-1.1) Eosinophils # (Auto) 0.0 x10^3/uL (0.0-0.7) Basophils # (Auto) 0.0 x10^3/uL (0.0-0.2) Sodium Level 142 mmol/L (136-145) Potassium Level 3.9 mmol/L (3.5-5.1) Chloride Level 108 mmol/L (98-107) Carbon Dioxide Level 27 mmol/L (21-32) Anion Gap 7 (6-14) Blood Urea Nitrogen 30 mg/dL (8-26) Creatinine 1.5 mg/dL (0.7-1.3) Estimated GFR (Cockcroft-Gault) 44.2 Glucose Level 161 mg/dL (70-99) Calcium Level 8.5 mg/dL (8.5-10.1) Test 01/02/21 11:27 Glucose (Fingerstick) 299 mg/dL (70-99) Assessment and Plan Assessmemt and Plan Problems Medical Problems: (1) Acute kidney injury Status: Acute (2) Shortness of breath Status: Acute Comment Review of Relevant I have reviewed the following items rohini (where applicable) has been applied. Medications: Current Medications Medications (Trade) Dose Ordered Sig/Garrett Route PRN Reason Start Time Stop Time Status Last Admin Dose Admin Metoprolol Succinate (Toprol Xl) 50 mg DAILY PO 01/02/21 09:00 01/02/21 08:02 Polyethylene Glycol (miraLAX PACKET) 17 gm BID PO 01/02/21 11:30 01/02/21 12:07 Justifications for Admission Other Justification ESTEFANY LESLEY OVALLES MD Jan 02, 2021 16:30
--- NOTE | 2021-01-02 17:50 | CARD ---
MR#: [id number] Date of Study: 01/02/2021 Ordering Physician: HERMAN VAZQUEZ, Referring Physician: HERMAN VAZQUEZ, Manda: Niko James [facility] APPROVED REPORT EXAM: Two-dimensional and M-mode echocardiogram with Doppler and color Doppler. Other Information Quality : FairHR: 84bpm Rhythm : NSRPVC's INDICATION Palpitations CAD RISK FACTORS Hypertension Hyperlipidemia 2D DIMENSIONS Left Atrium(2D)4.0 (1.6-4.0cm)IVSd1.3 (0.7-1.1cm) Aortic Root(2D)4.0 (2.0-3.7cm)LVDd5.0 (3.9-5.9cm) LVOT Diameter2.3 (1.8-2.4cm)PWd1.3 (0.7-1.1cm) LVDs2.7 (2.5-4.0cm)FS (%) 45.9 % SV92.5 mlLVEF(%)77.0 (>50%) Aortic Valve AoV Peak Jose.129.3cm/sAoV VTI24.8cm AO Peak GR.6.7mmHgLVOT Peak Jose.79.8cm/s AO Mean GR.3mmHgAVA (VMAX)2.47cm2 Mitral Valve MV E Tmuyznli17.1cm/sMV E Peak Gr.4mmHg MV DECEL [id number] A Usqfqwih40.0cm/s MV E Mean Gr.2mmHgE/A Ratio0.6 Pulmonary Valve PV Peak Nxiuurga91.0cm/s Tricuspid Valve TR P. Eaxvelec436ym/sTR Peak Gr.25mmHg LEFT VENTRICLE The left ventricle is normal size. There is mild concentric left ventricular hypertrophy. The left ve ntricular systolic function is normal. The ejection fraction is 50-55%. There is normal LV segmental wall motion. Transmitral Doppler flow pattern is Grade I-abnormal relaxation pattern. No left ventric le thrombus noted on this study. There is no ventricular septal defect visualized. RIGHT VENTRICLE The right ventricle is normal size. There is normal right ventricular wall thickness. The right ventr icular systolic function is normal. ATRIA The left atrium is mildly dilated. The right atrium size is normal. The interatrial septum is intact with no evidence for an atrial septal defect or patent foramen ovale as noted on 2-D or Doppler imagi ng. AORTIC VALVE The aortic valve is normal in structure and function. Doppler and Color Flow revealed no significant aortic regurgitation. There is no significant aortic valvular stenosis. There is no aortic valvular v egetation. MITRAL VALVE The mitral valve is normal in structure and function. There is no evidence of mitral valve prolapse. There is no mitral valve stenosis. Doppler and Color-flow revealed mild mitral regurgitation. TRICUSPID VALVE The tricuspid valve is normal in structure and function. Doppler and Color Flow revealed trace tricus pid regurgitation. There is no tricuspid valve prolapse or vegetation. There is no tricuspid valve st enosis. PULMONIC VALVE Not well seen Doppler and Color Flow revealed no pulmonic valvular regurgitation. There is no pulmoni c valvular stenosis. GREAT VESSELS The aortic root is normal in size. The ascending aorta is normal in size. The pulmonary artery is nor mal. The IVC is normal in size and collapses >50% with inspiration. PERICARDIAL EFFUSION There is no pleural effusion. There is no evidence of significant pericardial effusion. Critical Notification Critical Value: No <Conclusion> The left ventricular systolic function is normal. The ejection fraction is 50-55%. There is normal LV segmental wall motion. Transmitral Doppler flow pattern is Grade I-abnormal relaxation pattern. Mild mitral regurgitation. Trace tricuspid regurgitation. There is no evidence of significant pericardial effusion. Signed by : Jeffry Barnett, Electronically Approved : 01/02/2021 17:49:56
== END 2021-01-02 19:21 | disposition home or self-care (01) | DRG 682 ==
LOC: ER 14:17 → 6 SOUTH 17:09
PROVIDERS: ADMIT Internal Medicine; ATTEND Internal Medicine
DX: N17.0 Acute kidney failure with tubular necrosis (principal); J12.9 Viral pneumonia, unspecified; J44.1 Chronic obstructive pulmonary disease with (acute) exacerbation; J44.0 Chronic obstructive pulmonary disease with (acute) lower respiratory infection; E87.2 Acidosis; I47.2 Ventricular tachycardia; J20.9 Acute bronchitis, unspecified; E11.9 Type 2 diabetes mellitus without complications; E78.00 Pure hypercholesterolemia, unspecified; E78.5 Hyperlipidemia, unspecified; F17.201 Nicotine dependence, unspecified, in remission; I10 Essential (primary) hypertension; I25.10 Atherosclerotic heart disease of native coronary artery without angina pectoris; I49.3 Ventricular premature depolarization; G47.33 Obstructive sleep apnea (adult) (pediatric); M19.90 Unspecified osteoarthritis, unspecified site; Z20.822 Contact with and (suspected) exposure to COVID-19; Z95.5 Presence of coronary angioplasty implant and graft; I25.2 Old myocardial infarction; Z88.1 Allergy status to other antibiotic agents
CPT/HCPCS: 36415; 36600; 71045; 76770; 80048; 80053; 81001; 82570; 82805; 82962; 83605; 83690; 83735; 83880; 84100; 84156; 84443; 84484; 85007; 85025; 87040; 87426; 93005; 93306; 94640; 94760; 96361; 96374; J1815; J2930; J7030; J7512; U0003; U0005; 97110-GP; 97116-GP; 97530-GO; 97530-GP; 97535-GO; 99285-25; G0378; J7613; J7626; J8597